=== PATIENT | female | born 1970 | race Caucasian/White ===

== ENCOUNTER 2017-05-01 13:28 | Emergency (ER) | payer OTHER ==
[~2017-05-01] VITALS: Ht 160 cm; Wt 84.4 kg
[~2017-05-01 13:28] MED LIST: AMOX500C3 PO; IBUP-103 PO; LORA-741 PO
[2017-05-01 13:40] VITALS: TEMP 38.7; Ht 160 cm; Wt 84.4 kg
[2017-05-01] MEDS ORDERED: IBUPROFEN 600 MG TAB PO STA (14:14)
--- NOTE | 2017-05-01 15:02 | DIAGNOSTIC IMAGING REPORT ---
TWO VIEW CHEST CLINICAL HISTORY: Cough and fever. FINDINGS: PA and lateral chest radiographs are compared to study dated 01/06/2016 and correlated with chest CT dated 07/10/2015. The cardiomediastinal silhouette is unremarkable. There is bibasilar atelectasis. No airspace consolidation is seen typical for pneumonia and there is no pleural effusion. There is no pneumothorax. The bony thorax appears intact. IMPRESSION: Bibasilar atelectasis with no acute cardiopulmonary abnormality. Electronically signed by: Nestor Moyer M.D. 05/01/2017 3:01 PM Dictated Date/Time: 05/01/2017 3:00 PM
[2017-05-01 15:19] LABS: INFLUENZA B ANTIGEN Neg for Influ B (NEG)
[2017-05-01] MEDS ORDERED: OSEL75CA12 PO (15:23)
--- NOTE | 2017-05-01 15:24 | EMERGENCY ROOM VISIT NOTE ---
History First contact with patient: 14:04 Chief Complaint: FLU LIKE SX Stated Complaint: CHEST/COUGH/EAR, LOWER BACK, SINUS History of Present Illness The patient is a 47 year old female who presents to the Emergency Room with complaints of head congestion, cough, sore throat and ear pain which started 2 days ago. The patient also states it felt like she had a fever but she did not check her temperature. She felt chilled. The patient states that her cough is dry for a period of time then she will cough for a long time and then they will become productive. The patient also admits to body aches. The patient denies any history of asthma. The patient does admit to tobacco use. The patient did not have the influenza vaccine. The patient took DayQuil at 9 AM which has had 0.5 mg of Tylenol in it. Review of Systems 10 system review was performed and was negative unless stated otherwise history of present illness. Past Medical/Surgical History Medical Problems: (1) shortness of breath Kidney stones, hysterectomy, carpal tunnel surgery, rotator cuff surgery Social History Smoking Status: Current Every Day Smoker Alcohol Use: none Drug Use: none Marital Status: Housing Status: lives with significant other Occupation Status: employed Current/Historical Medications No Active Prescriptions or Reported Meds Physical Exam Vital Signs Date Time Temp Pulse Resp B/P (MAP) Pulse Ox O2 Delivery O2 Flow Rate FiO2 05/01/17 13:40 38.7 117 18 121/79 99 Room Air Physical Exam PHYSICAL EXAM: Vital Signs were reviewed: Temperature 38.7, blood pressure 121/ 79, pulse 117, respiratory rate 18 Reviewed Nurse's notes and agree. Oxygen saturation is 99 % on room air which is normal . GENERAL: 47-year-old female appears in no acute distress. MENTAL STATUS: Alert, oriented, coherent. EARS: Canals clear. TMs good light reflex, no erythema or fluid level noted. NOSE: Nasal mucosa with moderate erythema engorgement. MOUTH: Left lower molar with diffuse decay any portion of the tooth missing. No visible associated abscess. The patient is able to open her mouth without any difficulty. PHARYNX: Moderate erythema, left tonsil is 2+. No exudate noted. Airway is adequate. Uvula without deviation. NECK: Supple, non-tender. No lymphadenopathy noted. LUNGS: Clear to auscultation without wheezes rales or rhonchi. CARDIAC: Regular rate and rhythm without murmur. SKIN: No rashes noted. Medical Decision & Procedures ER Provider Diagnostic Interpretation: TWO VIEW CHEST CLINICAL HISTORY: Cough and fever. FINDINGS: PA and lateral chest radiographs are compared to study dated 01/06/2016 and correlated with chest CT dated 07/10/2015. The cardiomediastinal silhouette is unremarkable. There is bibasilar atelectasis. No airspace consolidation is seen typical for pneumonia and there is no pleural effusion. There is no pneumothorax. The bony thorax appears intact. IMPRESSION: Bibasilar atelectasis with no acute cardiopulmonary abnormality. Electronically signed by: Nestor Moyer M.D. 05/01/2017 3:01 PM Laboratory Results Test 05/01/17 14:24 Medications Administered Medications (Trade) Dose Ordered Sig/Tony Route Start Time Stop Time Status Last Admin Dose Admin Ibuprofen (Motrin Tab) 600 mg NOW STAT PO 05/01/17 14:14 05/01/17 14:16 DC 05/01/17 14:24 600 MG ED Course The patient was evaluated. Chest x-ray was ordered and interpreted by the radiologist and myself as above without any evidence of pneumonia.. Rapid strep was negative. Culture is pending. Rapid influenza was positive for influenza A but negative for influenza B. The patient was informed of the findings. The patient was discharged home in stable condition. Medical Decision Differential diagnosis include bronchitis, pneumonia, influenza [place] Drug Monitoring Program Search Results: patient reviewed within database Medication Reconcilliation Current Medication List: was personally reviewed by pr Blood Pressure Screening Patient's blood pressure: Normal blood pressure Impression Primary Impression: Influenza A Departure Information Dispostion Home / Self-Care Condition GOOD Prescriptions Oseltamivir (Tamiflu) 75 Mg Cap 75 MG PO BID for 5 Days, #10 CAP Prov: Landy Andrea PA-C 05/01/17 Referrals Skip Mcknight (PCP) Forms HOME CARE DOCUMENTATION FORM, IMPORTANT VISIT INFORMATION Patient Instructions My [facility] [employer] Additional Instructions Tylenol and/or ibuprofen as needed for fever and body aches. Push fluids. Continue [id number] symptomatic treatment. Take Tamiflu as prescribed for 5 days. If symptoms persist or worsen, follow with your family doctor or return to ER.
[2017-05-01 15:42] VITALS: BP 118/88; PULSE 110; O2SAT 99
== END 2017-05-01 15:43 | disposition home or self-care (01) ==
LOC: C.EDB 13:29 → C.EDC 15:43
DX: J10.1 Influenza due to other identified influenza virus with other respiratory manifestations (principal); Z87.442 Personal history of urinary calculi; F17.210 Nicotine dependence, cigarettes, uncomplicated

== ENCOUNTER 2018-07-05 05:38 | Observation (INO) ==
--- NOTE | 2018-06-11 14:49 | PAT Medication Instructions ---
Medication Instructions Date of Service June 11, 2018 Home Medications lorazepam 0.5 mg PO BID PRN Take morning of surgery With a small sip of water, OTHERWISE NOTHING TO EAT OR DRINK AFTER MIDNIGHT: lorazepam 0.5 mg PO BID PRN (if needed) Other Notes If you have any questions please call us at [phone] or [phone] or [phone] or [phone]
--- NOTE | 2018-06-12 10:25 | Anesthesiology Consultation ---
Date of Service June 12, 2018 Assessment & Plan (1) Encounter for pre-operative examination: Chart Review Chart Review: Acceptable Risk for Surgery and Patient NOT seen in Pre Admission Testing History Surgery Operation Date: 07/05/18 12:05 Proposed Procedures p C6-C7 Anterior Cervical Discectomy and Fusion - Taiwo Stewart DO Height/Weight Height: 5 ft 2.5 in Weight: 85 kg Allergies Allergy/AdvReac Type Severity Reaction Status Date / Time oxycodone AdvReac Severe SHORTNESS Verified 06/07/18 11:21 OF BREATH Medications Home Medications Medication Instructions Recorded Confirmed Last Taken lorazepam 0.5 mg PO BID PRN 02/13/18 06/07/18 Unknown Past Medical History Medical History Anxiety Atypical chest pain 05/2018 S/P UNREMARKABLE EKG/NEGATIVE TROPONINS- MUSCULAR ETIOLOGY SUSPECTED; NO FURTHER EPISODES SINCE LIDOCAINE PATCH X 1 Degenerative disc disease History of ovarian cyst Obesity Osteoarthritis Past Surgical History Surgical History History of bunionectomy LT History of carpal tunnel release RT History of elbow surgery RT History of mandibular surgery R/T INJURY AT AGE 20 - NO ROM ISSUES History of oophorectomy, unilateral History of partial hysterectomy History of repair of rotator cuff RT X 2 Past Anesthesia History No Hx of Anesthesia Complications and No Family Hx of Anesthesia Complications History of PONV No Motion Sickness Screening History of Motion Sickness: No STOP BANG Total 1 Social History Smoking Status: Current every day smoker tobacco type: cigarettes Smoking cigarettes per day: 1/2 PPD X 25 YEARS Do You Dip or Chew Tobacco: No Hx Alcohol Use: Yes Alcohol type: beer Alcohol Intake Frequency Comment: ONCE PER MONTH Hx Substance Use: No substance use type: does not use Exercise / Class Metabolic Activity II 4-5 Yardwork/Stairs/Walk up hill Review of Systems Patient denies chest pain, shortness of breath, dyspnea on exertion, cough, wheezing, palpitations. Physical Exam Vital Signs VITALS BP P TEMP 98.4 SP02 RESP 18 PHYSICAL Full neck and c-spine range of motion. Full TMJ range of motion. TMD 3 finger breaths Mallampati Score 2 Dentition: upper front right 3rd/4th teeth missing, bottom front caps Lungs: clear throughout to auscultation Cardiac: regular rate and rhythm Spine: normal Carotid arteries: negative bruit Extremities: no edema Testing Electrocardiogram Date: 06/06/18 Findings: + NSR @ (95) Chest X-Ray Date: 06/06/18 Findings: + NAD Laboratory Results 06/12/18 10:33 Blood Type O Positive 06/12/18 10:33 Antibody Screen NEGATIVE 06/12/18 10:33 Urine Color Yellow 06/12/18 Unknown Urine Appearance Clear (Clear) 06/12/18 Unknown Urine pH 7.0 (4.5-7.5) 06/12/18 Unknown Ur Specific [place] 1.010 (1.000-1.030) 06/12/18 Unknown Urine Protein Negative (Negative) 06/12/18 Unknown Urine Glucose (UA) Negative (Negative) 06/12/18 Unknown Urine Ketones Negative (Negative) 06/12/18 Unknown Urine Nitrite Negative (Negative) 06/12/18 Unknown Ur Leukocyte Esterase Negative (Negative) 06/12/18 Unknown Urine WBC (Auto) 0 /hpf (0-5) 06/12/18 Unknown Urine RBC (Auto) 5-10 /hpf (0-4) H 06/12/18 Unknown U Hyaline Cast (Auto) 0 /lpf (0-5) 06/12/18 Unknown U Epithel Cells (Auto) 20-30 /lpf (0-5) H 06/12/18 Unknown Urine Bacteria (Auto) Negative (Negative) 06/12/18 Unknown Surgeon made aware of elevated WBC. 06/06/18 SODIUM 139 POTASSIUM 3.6 CHLORIDE 107 CO2 25 BUN 18 CREATININE 0.81 GLUCOSE 81 PT 10.3 PTT 24.9 INR 1.0
[2018-06-12 11:20] LABS: Basophils # (auto) 0.05 K/uL (0-0.2); Basophils % (auto) 0.4 %; Eosinophils # (auto) 0.07 K/uL (0-0.5); Eosinophils % (auto) 0.6 %; Hematocrit (blood only) 44.3 % (37-47); Hemoglobin 14.7 g/dL (12.0-16.0); Immature Granulocytes # (auto) 0.04 K/uL (0.00-0.02); Immature Granulocytes % (auto) 0.3 %; Lymphocytes # (auto) 3.33 K/uL (1.2-3.4); Lymphocytes % (auto) 27.3 %; Mean Corpuscular Hgb Conc 33.2 g/dL (32-36); Mean Corpuscular Volume 96.7 fL (80-100); Mean Platelet Volume 9.6 fL (7.4-10.4); Monocytes # (auto) 0.85 K/uL (0.11-0.59); Neutrophils # (auto) 7.88 K/uL (1.4-6.5); Neutrophils % (auto) 64.4 %; Platelet Count 347 K/uL (130-400); RDW Coefficient of Variation 13.2 % (11.5-14.5); RDW Standard Deviation 46.3 fL (36.4-46.3); Red Blood Count 4.58 M/uL (4.2-5.4); White Blood Count 12.22 K/uL (4.8-10.8)
[2018-06-12 11:28] LABS: Appearance Urine Clear (Clear); Bacteria Urine Automated Negative (Negative); Bilirubin Urine Negative (Negative); Blood Urine 1+ (Negative); Cast Urine Automated 0 /lpf (0-5); Color Urine Yellow; Epithelial Cell Urine Auto 20-30 /lpf (0-5); Glucose Urine UA Negative (Negative); Ketones Urine Negative (Negative); Leukocyte Esterase Urine Negative (Negative); Nitrite Urine Negative (Negative); Protein Urine Negative (Negative); Urobilinogen Urine Negative (Negative); WBC Urine Automated 0 /hpf (0-5)
[2018-07-05] MEDS ORDERED: LR 15ML/HR IV SCH ×2 (06:00)
[2018-07-05] MEDS ORDERED: CeleBREX 200 MG CAP PO SCH (06:00)
[2018-07-05] MEDS ORDERED: ACETAMINOPHEN 500 MG TAB PO SCH (06:00)
[2018-07-05] MEDS ORDERED: CEFAZOLIN 2000MG 2,000 MG/15 ML SYR IV SCH (06:00)
[2018-07-05] MEDS ORDERED: GABAPENTIN 300 MG x 3 PO SCH (06:00)
[2018-07-05] MEDS ORDERED: HYDROmorphone INJ 2 MG/ML SYR/VIAL ONE ×2 (06:35)
[2018-07-05] MEDS ORDERED: fentaNYL citrate 100 MCG/2 ML VIAL ONE ×4 (06:35→08:56)
[2018-07-05] MEDS ORDERED: MIDAZOLAM HCL 1 MG/ML 2ML VIAL ONE (06:35)
[2018-07-05] MEDS ORDERED: ROCURONIUM BROMIDE 10 MG/ML 5 ML VIAL ONE (06:36)
[2018-07-05] MEDS ORDERED: GLYCOPYRROLATE 0.2 MG/ML VIAL ONE (06:36)
[2018-07-05] MEDS ORDERED: NEOSTIGMINE METHYLSULFATE 1 MG/ML 10ML VIAL ONE (06:36)
[2018-07-05] MEDS ORDERED: LIDOCAINE HCL 2% 2 ML VIAL/AMP(20MG/ML) INFIL ONE (06:36)
[2018-07-05] MEDS ORDERED: PROPOFOL IV EMULSION 10 MG/ML 20 ML VIAL IV ONE (06:36)
[2018-07-05] MEDS ORDERED: ONDANSETRON INJ 2 MG/ML 2 ML VIAL ONE ×2 (06:36→08:51)
[2018-07-05] MEDS ORDERED: DEXAMETHASONE SOD INJ 4 MG/ML VIAL ONE (06:36)
[2018-07-05] MEDS ORDERED: ATROPINE SULFATE 0.1 MG/ML 10ML SYR IV PRN (06:58)
[2018-07-05] MEDS ORDERED: ePHEDrine sulfate 50 MG/ML AMP IV PRN (06:58)
[2018-07-05] MEDS ORDERED: HYDROmorphone INJ 2 MG/ML SYR/VIAL IV PRN (06:58)
[2018-07-05] MEDS ORDERED: ONDANSETRON INJ 2 MG/ML 2 ML VIAL IV PRN ×2 (06:58→11:00)
[2018-07-05] MEDS ORDERED: BACITRACIN INJ 50,000 UNIT VIAL ONE (07:07)
--- NOTE | 2018-07-05 07:48 | History & Physical Bridge Note ---
Date of Service July 05, 2018 History & Physical Bridge Note I have examined the patient, reviewed the History & Physical and in the interval since the performance of the History & Physical I have noted the following changes of clinical significance: no changes noted
--- NOTE | 2018-07-05 07:49 | History & Physical Report ---
Date of Service July 05, 2018 Assessment & Plan (1) Cervical stenosis of spinal canal: Anterior cervical discectomy and fusion C6-7 Present on Admission?: Yes History of Present Illness Chief Complaint: Neck and arm pain Primary Care Provider: Skip Juan Luis This is a 48-year-old female with significant neck and arm pain. After failing extensive course of nonoperative care she is here for surgical intervention. Allergies Allergy/AdvReac Type Severity Reaction Status Date / Time oxycodone AdvReac Severe SHORTNESS Verified 07/05/18 06:30 OF BREATH Home Medications Home Medications Medication Instructions Recorded Confirmed Type lorazepam 0.5 mg PO BID PRN 02/13/18 07/05/18 History Past Med/Surg History Social History Preferred Language: Bangladeshi Communication Ability: Effective Outside Installer Apprentice Required: No Beliefs That Will Affect Care: None Current Living Situation: Spouse Other Information That Helps Us Care for You: No Feels Safe at Home: Yes Safety Concerns: Feels Safe At This Time Smoking Status: Current every day smoker Hx Alcohol Use: Yes Hx Substance Use: No Physical Exam Vital Signs (Past 24 Hours): Last Vital Signs Temp 36.9 C 07/05/18 06:31 Pulse 84 07/05/18 06:31 Resp 16 07/05/18 06:31 BP 121/82 07/05/18 06:31 Pulse Ox 95 07/05/18 06:31 Results & Data Medications Administered Acetaminophen (Tylenol) 1,000 mg PO PREOP ITZEL Stop: 07/05/18 18:00 Last Admin: 07/05/18 06:56 Dose: 1,000 mg Documented by: [id number] Celecoxib (Celebrex) 200 mg PO PREOP ITZEL Stop: 07/05/18 18:00 Last Admin: 07/05/18 06:56 Dose: 200 mg Documented by: [id number] Gabapentin (Neurontin) 900 mg PO PREOP ITZEL Stop: 07/05/18 18:00 Last Admin: 07/05/18 06:56 Dose: 900 mg Documented by: [id number] Lactated Ringer's (Lr) 1,000 mls @ 15 mls/hr IV .Q24H ITZEL Stop: 07/06/18 05:59 Last Admin: 07/05/18 06:49 Dose: 15 mls/hr Documented by: [id number]
[2018-07-05] MEDS ORDERED: FLOSEAL HEMOSTATIC MATRIX 10ML TOP ONE (08:34)
[2018-07-05] MEDS ORDERED: raNITIdine HCl 25 MG/ML VIAL ONE (08:51)
[2018-07-05] MEDS ORDERED: METOCLOPRAMIDE HCL INJ 5 MG/ML 2 ML VIAL ONE (08:51)
[2018-07-05] MEDS ORDERED: PHENYLEPHRINE 100MCG/ML 5ML SYR ONE (08:51)
[2018-07-05] MEDS ORDERED: ESMOLOL HCL INJ 10 MG/ML 10ML VIAL IV ONE (08:57)
--- NOTE | 2018-07-05 09:06 | Operative Report ---
Post Operative Report Pre & Post Diagnosis Operation Date: 07/05/18 07:45 Pre-Op Diagnosis: Spinal Stenosis, Cervical Region Post-Op Diagnosis: Spinal Stenosis, Cervical Region Procedure Operation Date: 07/05/18 07:45 Actual Procedures #1 anterior cervical discectomy bilateral foraminotomies C6-7. #2 anterior cervical arthrodesis C6-7. #3 placement of cortical allograft filled with DBM 9 mm in height C6-7. #4 application cedeno plate and screws across C6-7. Surgeon Taiwo Stewart, Attendance Clerk Halie Morin Estimated Blood Loss 10 Findings Consistent with Post-Op Diagnosis Specimens None Description of Procedure Still questions addressed. After informed consent obtained patient was taken to the operative suite underwent intubation and placed in the supine position on the Lalito table with the head Foley head start assistant teacher. All bony prominences well-padded eyes inspected to ensure no external pressure placed upon but this point the anterior cervical spine was prepped and draped in normal sterile fashion. The assistance of fluoroscopy identified the C6-7 disc space and a transverse incision was placed on the right anterior aspect of the cervical spine overlying this region. Sharp dissection with the assistance of bipolar elective cautery was performed down to and exposing the anterior cervical spine at C6-7. Self-retaining retractors placed. Then performed a complete discectomy of C6-7 out to the uncovertebral joints bilaterally. [place] distracting pins were utilized to assist in visualization. Removed all posterior annular fibers longitudinal ligament and bilateral foraminotomies performed. Endplates were then burred to subcortical bleeding bone and a 9 mm cortical allograft filled with DBM tamped in position. Distraction apparatus was removed and a cedeno plate and screws applied with the assistance of fluoroscopy. Incision was then copiously irrigated explored to ensure no damage to surrounding structures remaining bleeding. 10 round ROSALBA drain inserted. Incision was then closed with 2 Vicryl in a fashion of 4-0 Monocryl for final skin closure. Steri-Strips sterile dressing placed patient will continue to PACU stable condition. Please note Halie Morin present throughout the entire procedure involved in patient positioning complex portions of the surgery and final skin closure. I attest to the content of the Intraoperative Record and any orders documented therein. Any exceptions are noted below.
--- NOTE | 2018-07-05 09:28 | Fluoroscopy Report ---
FL cervical 2-3V CLINICAL HISTORY: C6-C7 ACDF COMPARISON STUDY: None FLUOROSCOPY TIME: 10 seconds NUMBER OF FLUOROSCOPIC IMAGES: FINDINGS: Findings consistent with an anterior fusion and spacer placement at C6-C7. Alignment is cande tomic. IMPRESSION: C6-C7 anterior fusion and disc spacer placement. Alignment is anatomic. The above report was generated using voice recognition software. It may contain grammatical, syntax or spelling errors. Electronically signed by: Zain Andrea M.D. 07/05/2018 9:27 AM
[2018-07-05] MEDS: fentaNYL citrate 100 MCG/2 ML VIAL IV PRN ×2 (09:50→09:55)
--- NOTE | 2018-07-05 10:43 | Anesthesiology Progress Note ---
Date of Service July 05, 2018 Anesthesia Post Procedure Vital Signs Vital Signs: Temp Pulse Pulse Resp BP BP Pulse Ox 07/05/18 10:25 36.3 C L 72 17 120/77 97 07/05/18 10:15 36.3 C L 83 21 106/79 98 07/05/18 10:05 79 19 116/70 98 07/05/18 09:55 69 18 141/82 H 92 07/05/18 09:45 76 18 124/89 92 07/05/18 09:35 80 14 132/93 99 07/05/18 09:25 80 15 133/94 98 07/05/18 09:15 36.8 C 87 14 133/68 97 07/05/18 06:31 36.9 C 84 16 121/82 95 Pain Intensity Anterior Neck: Pain Intensity: 3 Notes Mental Status: alert / awake / arousable and participated in evaluation Patient Amnestic to Procedure: Yes Nausea / Vomiting: adequately controlled Pain: adequately controlled Airway Patency, RR, SpO2: stable & adequate BP & HR: stable & adequate Hydration State: stable & adequate Anesthetic Complications: no major complications apparent and Pt Satisfied with anesthetic care
[2018-07-05] MEDS ORDERED: LACTATED RINGER'S 1,000 ML IV SCH (11:00)
[2018-07-05] MEDS ORDERED: SCOPOLAMINE 1.5 MG TDSY TD SCH (11:00)
[2018-07-05] MEDS ORDERED: RACEPINEPHRINE 2.25% NEBU SOLN 0.5 ML VIAL INH PRN (11:00)
[2018-07-05] MEDS ORDERED: LORazepam 0.5 MG TAB PO PRN ×2 (11:00)
[2018-07-05] MEDS ORDERED: DEXAMETHASONE SOD PHOSPHATE 8 MG in SYRINGE 0 ML IV PRN (11:00)
[2018-07-05] MEDS ORDERED: HYDROmorphone INJ 0.5 MG/0.5 ML SYR IV PRN (11:00)
[2018-07-05] MEDS ORDERED: DO NOT ADMINISTER FLU VACCINE PRN (11:00)
[2018-07-05] MEDS ORDERED: NALOXONE HCL 0.4 MG/1 ML VIAL/CARP IV PRN (11:00)
[2018-07-05] MEDS ORDERED: MAGNESIUM HYDROXIDE SUSP 30 ML UDC PO PRN (11:00)
[2018-07-05] MEDS ORDERED: ACETAMINOPHEN 1,000 MG/100 ML VIAL IV PRN (11:00)
[2018-07-05] MEDS ORDERED: LORazepam 0.5 MG/1 ML VIAL IV PRN (11:00)
[2018-07-05] MEDS ORDERED: DiphenhydrAMINE HCL 50 MG/ML VIAL IV PRN (11:00)
[2018-07-05] MEDS ORDERED: DO NOT ADMINISTER PNEUMOCOCCAL VACCINE PRN (11:00)
[2018-07-05] MEDS: HYDROCODONE/ACETAMOPHEN 5/325MG TAB PO PRN ×3 (13:02→21:50)
[2018-07-05] MEDS: CEFAZOLIN 2000MG 2,000 MG/15 ML SYR IV SCH (15:54)
[2018-07-05] MEDS: CHECK SCOPOLAMINE PATCH PLACEMENT SCH (16:14)
[2018-07-05] MEDS: DOCUSATE SODIUM 100 MG CAP PO SCH (20:11)
[2018-07-06] MEDS: CHECK SCOPOLAMINE PATCH PLACEMENT SCH ×2 (00:04→08:31)
[2018-07-06] MEDS: CEFAZOLIN 2000MG 2,000 MG/15 ML SYR IV SCH ×2 (00:04→08:30)
[2018-07-06] MEDS ORDERED: COUGH DROP (SUGAR FREE) LOZ 24 LOZ/1 BOX BUCCAL PRN (00:05)
--- NOTE | 2018-07-06 08:05 | Anesthesiology Progress Note ---
Date of Service July 06, 2018 Anesthesia Post Procedure Vital Signs Vital Signs: Temp Pulse Pulse Resp BP BP Pulse Ox 07/06/18 07:23 36.8 C 68 18 114/73 95 07/06/18 05:57 36.6 C 79 18 107/71 96 07/06/18 04:00 36.6 C 74 16 107/73 95 07/06/18 03:26 79 18 94 07/06/18 02:04 36.6 C 70 18 97/63 L 94 07/06/18 00:00 36.2 C L 80 16 109/71 95 07/05/18 22:58 83 14 97 07/05/18 22:14 36.8 C 82 16 120/73 96 07/05/18 21:23 36.9 C 88 20 109/73 96 07/05/18 20:12 36.9 C 82 16 114/75 95 07/05/18 19:30 36.6 C 84 16 114/78 98 07/05/18 17:25 36.6 C 84 20 118/80 97 07/05/18 15:44 32 H 96 07/05/18 15:24 36.7 C 100 H 22 110/75 97 07/05/18 14:12 36.5 C 80 16 109/73 97 07/05/18 12:48 36.6 C 90 18 131/85 98 07/05/18 11:50 36.3 C L 74 18 127/83 99 07/05/18 11:39 72 12 99 07/05/18 11:25 36.7 C 71 18 124/82 98 07/05/18 10:50 36.4 C L 67 18 126/82 99 07/05/18 10:25 36.3 C L 72 17 120/77 97 07/05/18 10:15 36.3 C L 83 21 106/79 98 07/05/18 10:05 79 19 116/70 98 07/05/18 09:55 69 18 141/82 H 92 07/05/18 09:45 76 18 124/89 92 07/05/18 09:35 80 14 132/93 99 07/05/18 09:25 80 15 133/94 98 07/05/18 09:15 36.8 C 87 14 133/68 97 Pain Intensity Anterior Neck: Pain Intensity: 2 Head: Pain Intensity: 3 Notes Mental Status: alert / awake / arousable and participated in evaluation Patient Amnestic to Procedure: Yes Nausea / Vomiting: adequately controlled Pain: adequately controlled Airway Patency, RR, SpO2: stable & adequate BP & HR: stable & adequate Hydration State: stable & adequate Anesthetic Complications: no major complications apparent and Pt Satisfied with anesthetic care
[2018-07-06] MEDS: DOCUSATE SODIUM 100 MG CAP PO SCH (08:31)
--- NOTE | 2018-07-06 19:08 | Discharge Summary ---
Date of Service July 06, 2018 Admission HPI Per Admitting Provider This is a 48-year-old female with significant neck and arm pain. After failing extensive course of nonoperative care she is here for surgical intervention. Principal Diagnosis Cervical spinal stenosis Discharge Data Allergies Allergy/AdvReac Type Severity Reaction Status Date / Time oxycodone AdvReac Severe SHORTNESS Verified 07/05/18 06:30 OF BREATH Procedures Performed Operation Date: 07/05/18 07:45 Actual Procedures p C6-C7 Anterior Cervical Discectomy and Fusion(Not Applicable) - Taiwo Stewart DO Ordered Studies 07/05/18 07:45 FL cervical 2-3V Routine FL fluoroscopy <1hr Routine Hospital Course (1) Cervical stenosis of spinal canal: Patient underwent anterior cervical discectomy and fusion tolerated this well was taken to orthopedic floor postoperative. Postop day and when she is up and ambulate nicely swallowing well no hoarseness arm symptoms markedly improved subsequent to discharge home. Discharge orders and instructions from the chart for further review. Total Time Total Time Spent Total Time Spent (In Minutes): Not applicable Discharge Plan Discharge Items Patient Disposition: Home - Self-Care Reason For Visit: Spinal Stenosis, Cervical Region Discharge Diagnosis: Cervical spinal stenosis with radiculopathy Discharge Goals: Decrease discomfort Activity: Per 'Additional Instructions' section Non-emergency contact: Primary Care Provider Call non-emergency contact if: you have any medication questions Follow-up/Referrals: Skip Mcknight [Primary Care Provider] - Diet: Regular Addtl Provider Instructions: ACTIVITY RECOMMENDATIONS: SELF CARE INSTRUCTIONS AFTER CERVICAL FUSIONS 1. No smoking. Smoking drastically decreases the chance of a solid fusion. 2. No bending, lifting more than 5 pounds, or twisting (roll like a log when turning in bed). 3. You may shower 3 days after surgery. Thoroughly dry wound. Do not soak in the tub. 4. Cervical collar: Must be worn at all times including sleeping. You may remove the brace only to bath, eat and if you are sitting in a recliner. 5. Please walk as much as you can for exercise. Gradually increase the distance that you walk as your endurance increases. SPECIAL CARE INSTRUCTIONS: VERY IMPORTANT TO READ AND REVIEW A. Do not take any anti-inflammatory medications (i.e. Indocin, Advil, Aspirin, Naprosyn, Aleve, Motrin, etc.) as these may inhibit the chance of a solid fusion. Tylenol is okay to take. B. Your surgical incision has been closed with a cosmetic suture under the skin that will dissolve in about 6 weeks. In 14 days, you can use a pair of clean scissors and cut the suture that is left outside of the skin at the ends of your incision. C. Complications are uncommon, but please contact us if you have any signs or symptoms of: 1. wound infection (fever higher than 102.5 degrees F, redness, separation of wound, drainage, or increasing pain from the incision) 2. blood clots in legs (pain, swelling, redness and warmth in legs) 3. urinary tract infection (fever higher than 102.5 degrees, burning upon urination or increased frequency of urination) 4. nerve problems (inability to walk on your toes or heels, numbness, loss of bowel or bladder control) 5. any other symptoms that concern you. D. Please call the office at if you have any concerns or questions about your operation or recovery. MANAGING PAIN AFTER SPINAL SURGERY 1. Narcotic medication is intended for short-term use and will be provided for surgical pain. Surgical pain usually lasts for a period of 4-6 weeks. Narcotic medication includes Percocet, Vicodin, Darvocet, Tylenol #3 or Lortab. 2. Longer-term pain is more appropriately treated with non-narcotic medication such as Tylenol ES. 3. Muscle spasm is not appropriately treated with narcotics. Muscle relaxers such as Soma, Flexeril or Skelaxin can be used along with Tylenol ES. 4. Remember that we all live with some "aches and pains". This is not unusual or uncommon after an injury or as we get older. 5. We will provide appropriate medication within the normal guidelines of their prescribed use. We will also be very cautious and aware of potential abuse and extended duration of patients' medication needs. 6. Please allow 2-3 days to process refills. Prescriptions will not be mailed but must be picked up at the office. FOLLOW UP VISIT: Keep your scheduled follow-up appointment. Any questions, please call the office at . Prescriptions: New hydrocodone-acetaminophen [[place]] 5-325 mg Tablet 1 tab PO Q4H PRN (Reason: Pain) Qty: 30 RF: 0 Continued lorazepam 0.5 mg tablet 0.5 mg PO BID PRN (Reason: Anxiety) RF: 0 Stand-Alone Forms: [employer], [facility] [employer]/Other Patient Handouts: ED Smoking Cessation Discharge Orders: Discharge Order (Routine); Ordered 07/06/18 Ordered By: Taiwo Stewart Admission Data Admit Date/Time: 07/05/18 09:09 Attending Provider: Taiwo Stewart Admit Provider: Taiwo Stewart Primary Care Provider: Skip Mcknight Service: Surgical Services Other Interventions: Discharge Summary Assessment (RN) Last Done: 07/06/18 10:43 DC Date/Time DO NOT enter until pt leaves facility: 07/06/18 12:15
== END 2018-07-06 12:15 | disposition home or self-care (01) ==
LOC: ASU 05:38 → 3E 05:38

== ENCOUNTER 2019-01-04 18:22 | Observation (INO) ==
[2019-01-04 20:19] LABS: Basophils # (auto) 0.04 K/uL (0-0.2); Basophils % (auto) 0.2 %; Eosinophils % (auto) 0.5 %; Hematocrit (blood only) 44.7 % (37-47); Hemoglobin 15.3 g/dL (12.0-16.0); Immature Granulocytes # (auto) 0.04 K/uL (0.00-0.02); Immature Granulocytes % (auto) 0.2 %; Lymphocytes # (auto) 4.35 K/uL (1.2-3.4); Lymphocytes % (auto) 23.7 %; Mean Corpuscular Hemoglobin 32.3 pg (25-34); Mean Corpuscular Hgb Conc 34.2 g/dL (32-36); Mean Corpuscular Volume 94.3 fL (80-100); Mean Platelet Volume 9.7 fL (7.4-10.4); Monocytes # (auto) 1.39 K/uL (0.11-0.59); Monocytes % (auto) 7.6 %; Neutrophils # (auto) 12.43 K/uL (1.4-6.5); Neutrophils % (auto) 67.8 %; Platelet Count 294 K/uL (130-400); RDW Coefficient of Variation 12.5 % (11.5-14.5); Red Blood Count 4.74 M/uL (4.2-5.4); White Blood Count 18.35 K/uL (4.8-10.8)
[2019-01-04 20:20] LABS: Appearance Urine Cloudy (Clear); Bacteria Urine Automated Negative (Negative); Bilirubin Urine Negative (Negative); Blood Urine 1+ (Negative); Color Urine Yellow; Epithelial Cell Urine Auto >30 /lpf (0-5); Glucose Urine UA Negative (Negative); Ketones Urine Negative (Negative); Leukocyte Esterase Urine Negative (Negative); Nitrite Urine Negative (Negative); Protein Urine Negative (Negative); Specific Gravity Urine 1.016 (1.000-1.030); Urobilinogen Urine Negative (Negative); pH Urine 8.5 (4.5-7.5)
[2019-01-04] MEDS ORDERED: ONDANSETRON INJ 2 MG/ML 2 ML VIAL IV STA (20:32)
[2019-01-04 20:35] LABS: Albumin Level 4.3 gm/dl (3.4-5.0); BUN Creatinine Ratio 14.5 (10-20); Calcium 9.8 mg/dl (8.5-10.1); Creatinine Clr Calc Pharmacy 79.7 ml/min; Est GFR (African American) 88.3; Est GFR (Non-African American) 76.1; Potassium 3.6 mmol/L (3.5-5.1)
[2019-01-04 20:38] LABS: Albumin Globulin Ratio 1.2 (0.9-2); Bilirubin,Total 0.4 mg/dl (0.2-1); Globulin 3.7 gm/dl (2.5-4.0)
[2019-01-04] MEDS: HYDROmorphone INJ 0.5 MG/0.5 ML SYR IV PRN ×3 (20:38→22:13)
[2019-01-04] MEDS ORDERED: IOVERSOL 100ml IV PRN (20:55)
--- NOTE | 2019-01-04 21:08 | CT Scan Report ---
CT SCAN OF THE ABDOMEN AND PELVIS WITH IV CONTRAST CLINICAL HISTORY: Right lower quadrant abdominal pain. Leukocytosis. COMPARISON STUDY: Abdominal CT dated 08/23/2013. TECHNIQUE: Following the IV administration of 70 cc of Optiray 320, CT scan of the abdomen and pelvi s is performed from the lung bases to the proximal femora. Images are reviewed in the axial, sagittal , and coronal planes. IV contrast was administered without complication. A dose lowering technique wa s utilized adhering to the principles of ALARA. CT DOSE: 676.14 mGy.cm FINDINGS: Lung bases: The heart is normal in size and without pericardial effusion. The lung bases are clear. Liver: The contrast-enhanced liver is normal in size, contour, and attenuation. There is no intrahepa tic biliary ductal dilatation. The hepatic veins and portal veins are patent. Gallbladder: Unremarkable. Spleen: Normal in size and attenuation. Pancreas: Unremarkable. Adrenal glands: Unremarkable. Kidneys: The contrast enhanced kidneys are normal in size and without hydronephrosis. The kidneys enh ance symmetrically. Abdominal vasculature: The abdominal aorta is normal in course and caliber noting mild atheroscleroti c calcification. Bowel: The small bowel and colon are normal in course and caliber. The appendix is retrocecal in loc ation. The appendix is distended and fluid-filled, measuring up to 9 mm in diameter as seen on image #[id number]. The appendiceal wall appears hyperemic and there is periappendiceal inflammation. The appearanc e is consistent with acute appendicitis. There is no evidence of abscess. Peritoneum: There is no intraperitoneal free air or abdominal ascites. There is a small fat-containin g umbilical hernia. Lymphadenopathy: None. Pelvic viscera: The bladder is normal as visualized. The uterus is surgically absent. No adnexal lesi on is seen. Skeletal structures: No lytic or blastic lesions are seen. IMPRESSION: Findings are consistent with acute appendicitis. There is no evidence of abscess or perfo ration. Electronically signed by: Nestor Moyer M.D. 01/04/2019 9:05 PM
[2019-01-04] MEDS ORDERED: cefOXitin 2,000 MG/60 ML BAG IV STA (21:33)
[2019-01-04] MEDS ORDERED: BUPIVACAINE 0.5 % 5 MG/1 ML MPF 30ML VIAL ONE (21:57)
[2019-01-04] MEDS ORDERED: ONDANSETRON INJ 2 MG/ML 2 ML VIAL IV PRN (22:05)
[2019-01-04] MEDS ORDERED: ATROPINE SULFATE 0.1 MG/ML 10ML SYR IV PRN (22:05)
[2019-01-04] MEDS ORDERED: ePHEDrine sulfate 50 MG/ML AMP IV PRN (22:05)
[2019-01-04] MEDS ORDERED: MEPERIDINE HCL 25 MG/ML CARP IV PRN (22:05)
[2019-01-04] MEDS ORDERED: LABETALOL HCL IV 5 MG/ML 20ML IV PRN (22:05)
[2019-01-04] MEDS ORDERED: PHENYLEPHRINE 100MCG/ML 5ML SYR IV PRN (22:05)
[2019-01-04] MEDS ORDERED: fentaNYL citrate 100 MCG/2 ML VIAL IV PRN (22:05)
--- NOTE | 2019-01-04 22:12 | Anesthesiology Consultation ---
Date of Service January 04, 2019 Assessment & Plan (1) Encounter for pre-operative examination: Chart Review Chart Review: Acceptable Risk for Surgery and Patient NOT seen in Pre Admission Testing Consults Requested none History Surgery Operation Date: 01/04/19 22:30 Proposed Procedures p Laparoscopic Appendectomy - Chip Bautista DO, REAGAN Height/Weight Height: 5 ft 2.5 in Weight: 86.5 kg Allergies Allergy/AdvReac Type Severity Reaction Status Date / Time oxycodone AdvReac Severe SHORTNESS Verified 01/04/19 21:33 OF BREATH Medications Home Medications Medication Instructions Recorded Confirmed Last Taken lorazepam 0.5 mg PO BID PRN 02/13/18 01/04/19 07/05/18 05:30 ibuprofen [Advil] 600 mg PO BID PRN 01/04/19 01/04/19 01/03/19 22:00 Active Medications Generic Name Dose Route Start Last Admin Trade Name Freq PRN Reason Stop Dose Admin Hydromorphone HCl 0.5 mg 01/04/19 20:32 01/04/19 21:20 Dilaudid IV 01/18/19 20:31 0.5 mg Q15M PRN Administration Pain Ioversol 70 ml 01/04/19 20:55 01/04/19 20:55 Optiray 320 100ml IV 01/08/19 20:54 70 ml ONCE PRN Administration Interaction Checking NPO Date Last Intake of Fluids: 01/04/19 Time Last Intake of Fluids: 12:00 Date Last Intake of Solids: 01/04/19 Time Last Intake of Solids: 12:00 Past Medical History Medical History History of ovarian cyst (Resolved) Osteoarthritis (Chronic) Degenerative disc disease (Chronic) Obesity (Chronic) Atypical chest pain (Resolved) 05/2018 S/P UNREMARKABLE EKG/NEGATIVE TROPONINS- MUSCULAR ETIOLOGY SUSPECTED; NO FURTHER EPISODES SINCE LIDOCAINE PATCH X 1 Anxiety (Chronic) Past Surgical History Surgical History History of oophorectomy, unilateral (Resolved) History of partial hysterectomy (Resolved) History of elbow surgery (Resolved) RT History of repair of rotator cuff (Resolved) RT X 2 History of carpal tunnel release (Resolved) RT History of bunionectomy (Resolved) LT History of cervical spinal arthrodesis (Resolved) History of neck surgery History of mandibular surgery (Resolved) R/T INJURY AT AGE 20 - NO ROM ISSUES Social History Smoking Status: Current every day smoker tobacco type: cigarettes Smoking cigarettes per day: 1/2 PPD X 25 YEARS Hx Alcohol Use: Yes Alcohol type: beer Hx Substance Use: No substance use type: does not use Physical Exam Vital Signs Last Vital Signs Temp 37 C 01/04/19 18:35 Pulse 94 H 01/04/19 21:22 Resp 16 01/04/19 21:22 BP 154/102 H 01/04/19 21:22 Pulse Ox 97 01/04/19 21:22 Testing Laboratory Results 01/04/19 20:08 01/04/19 20:08 Urine Color Yellow 01/04/19 20:08 Urine Appearance Cloudy (Clear) A 01/04/19 20:08 Urine pH 8.5 (4.5-7.5) H 01/04/19 20:08 Ur Specific [place] 1.016 (1.000-1.030) 01/04/19 20:08 Urine Protein Negative (Negative) 01/04/19 20:08 Urine Glucose (UA) Negative (Negative) 01/04/19 20:08 Urine Ketones Negative (Negative) 01/04/19 20:08 Urine Nitrite Negative (Negative) 01/04/19 20:08 Ur Leukocyte Esterase Negative (Negative) 01/04/19 20:08 Urine WBC (Auto) 1-5 /hpf (0-5) 01/04/19 20:08 Urine RBC (Auto) 5-10 /hpf (0-4) H 01/04/19 20:08 U Hyaline Cast (Auto) 1-5 /lpf (0-5) 01/04/19 20:08 U Epithel Cells (Auto) >30 /lpf (0-5) H 01/04/19 20:08 Urine Bacteria (Auto) Negative (Negative) 01/04/19 20:08 01/04/19 20:14 POC Ur Test NEG Electrocardiogram Date: 06/06/18 Findings: + NSR @ (95) Chest X-Ray Date: 06/06/18 Findings: + NAD
[2019-01-04] MEDS ORDERED: fentaNYL citrate 100 MCG/2 ML VIAL ONE ×2 (22:22→23:26)
[2019-01-04] MEDS ORDERED: MIDAZOLAM HCL 1 MG/ML 2ML VIAL ONE (22:22)
[2019-01-04] MEDS ORDERED: PROPOFOL IV EMULSION 10 MG/ML 20 ML VIAL IV ONE (22:27)
[2019-01-04] MEDS ORDERED: LIDOCAINE HCL 2% 2 ML VIAL/AMP(20MG/ML) INFIL ONE (22:27)
[2019-01-04] MEDS ORDERED: SUCCINYLCHOLINE CHLORIDE 20 MG/ML 10 ML VIAL ONE (22:28)
[2019-01-04] MEDS ORDERED: ROCURONIUM BROMIDE 10 MG/ML 5 ML VIAL ONE (22:28)
[2019-01-04] MEDS ORDERED: DEXAMETHASONE SOD INJ 4 MG/ML VIAL ONE (22:28)
[2019-01-04] MEDS ORDERED: ONDANSETRON INJ 2 MG/ML 2 ML VIAL ONE ×2 (22:28→23:56)
[2019-01-04] MEDS ORDERED: NEOSTIGMINE METHYLSULFATE 5 MG/5 ML SYR ONE (22:30)
[2019-01-04] MEDS ORDERED: GLYCOPYRROLATE 0.2 MG/ML VIAL ONE (22:30)
--- NOTE | 2019-01-04 22:36 | History & Physical Report ---
Date of Service January 04, 2019 Assessment & Plan (1) Acute appendicitis with localized peritonitis: 48-year-old female with acute appendicitis Plan for laparoscopic appendectomy The risk the procedure were discussed to include but not limited to bleeding, infection, abscess, conversion open, normal appendix, damage to surrounding structures, need for future or more extensive surgery or procedures, and the risk of anesthesia Preop antibiotics Admit postop Diagnosis, details the procedure and recovery, and plan of care discussed the patient, all questions were answered, the patient expressed understanding agrees the plan of care as stated Present on Admission?: Yes (2) Obesity: Present on Admission?: Yes (3) Smoker: Present on Admission?: Yes History of Present Illness Primary Care Provider: Skip Mcknight 48-year-old female presented to the emergency department with abdominal pain. Pain started on Monday is an ill feeling in her stomach with pain is diffuse very umbilical pain. After eating lunch this afternoon her pain migrated to the right lower quadrant and became more severe. She also has associated nausea and vomiting. [place] chills. Positive anorexia. No prior episodes. Allergies Allergy/AdvReac Type Severity Reaction Status Date / Time oxycodone AdvReac Severe SHORTNESS Verified 01/04/19 21:33 OF BREATH Home Medications Home Medications Medication Instructions Recorded Confirmed Type lorazepam 0.5 mg PO BID PRN 02/13/18 01/04/19 History ibuprofen [Advil] 600 mg PO BID PRN 01/04/19 01/04/19 History Past Med/Surg History Medical History History of ovarian cyst (Resolved) Osteoarthritis (Chronic) Degenerative disc disease (Chronic) Obesity (Chronic) Atypical chest pain (Resolved) 05/2018 S/P UNREMARKABLE EKG/NEGATIVE TROPONINS- MUSCULAR ETIOLOGY SUSPECTED; NO FURTHER EPISODES SINCE LIDOCAINE PATCH X 1 Anxiety (Chronic) Surgical History History of oophorectomy, unilateral (Resolved) History of partial hysterectomy (Resolved) History of elbow surgery (Resolved) RT History of repair of rotator cuff (Resolved) RT X 2 History of carpal tunnel release (Resolved) RT History of bunionectomy (Resolved) LT History of cervical spinal arthrodesis (Resolved) History of neck surgery History of mandibular surgery (Resolved) R/T INJURY AT AGE 20 - NO ROM ISSUES Social History Preferred Language: Pashto Communication Ability: Effective Community Director Required: No Beliefs That Will Affect Care: None Current Living Situation: Spouse Feels Safe at Home: Yes Smoking Status: Current every day smoker Tobacco Type: cigarettes ; Cigarettes Per Day: 1/2 PPD X 25 YEARS ; Second Hand Exposure: Yes ( SMOKES) ; Hx Alcohol Use: Yes Alcohol type: beer Hx Substance Use: No Review of Systems Review of Systems: All systems reviewed & are unremarkable except as noted in HPI & below Physical Exam Constitutional: WD/WN, vitals as above Eyes: PERRL, conjunctivae normal, anicteric sclerae ENMT: external ear and nose normal, oropharynx normal Neck: trachea midline, no thyromegaly Respiratory: normal respiratory effort, lungs clear to auscultation Cardiovascular: RRR, no murmur, no edema Gastrointestinal (Abdomen): Percussion/Palpation: + abdomen tender (Tender to palpation in the right lower quadrant), + guarding and abdomen soft; abdomen not rigid and no hepatosplenomegaly Musculoskeletal: no cyanosis or clubbing, extremities motor strength 5/5 Skin: no rashes, warm and dry Neurologic: PERRL, EOMI, accommodation nl, no face palsy, no dysarthria Psychiatric: A+Ox3, euthymic affect Lymphatic: no cervical or axillary lymphadenopathy Results & Data Vital Signs (Past 12 Hours) Vital Signs Temp Pulse Pulse Resp BP BP Pulse Ox 01/04/19 22:16 93 H 16 127/85 97 01/04/19 21:22 94 H 16 154/102 H 97 01/04/19 20:22 93 H 16 122/87 98 01/04/19 20:15 100 01/04/19 18:35 37 C 97 H 18 137/80 100 Laboratory Results Laboratory Results - last 24 hr 01/04/19 01/04/19 01/04/19 20:08 20:08 20:08 WBC 18.35 H RBC 4.74 Hgb 15.3 Hct 44.7 MCV 94.3 MCH 32.3 MCHC 34.2 RDW Std Deviation 43.0 RDW Coeff of [place] 12.5 Plt Count 294 MPV 9.7 Immature Gran % (Auto) 0.2 Neut % (Auto) 67.8 Lymph % (Auto) 23.7 [place] % (Auto) 7.6 Eos % (Auto) 0.5 Baso % (Auto) 0.2 Immature Gran # (Auto) 0.04 H Neut # (Auto) 12.43 H Lymph # (Auto) 4.35 H [place]pie # (Auto) 1.39 H Eos # (Auto) 0.10 Baso # (Auto) 0.04 Sodium 139 Potassium 3.6 Chloride 106 Carbon Dioxide 24 Anion Gap 9.0 BUN 13 Creatinine 0.90 Est Cr Clr Drug Dosing 79.7 Est GFR ( Amer) 88.3 Est GFR (Non-Af Amer) 76.1 BUN/Creatinine Ratio 14.5 Glucose 93 Calcium 9.8 Total Bilirubin 0.4 AST 12 L ALT 23 Alkaline Phosphatase 93 Total Protein 8.0 Albumin 4.3 Globulin 3.7 Albumin/Globulin Ratio 1.2 Lipase 286 Urine Color Yellow Urine Appearance Cloudy A Urine pH 8.5 H Ur Specific [place] 1.016 Urine Protein Negative Urine Glucose (UA) Negative Urine Ketones Negative Urine Blood 1+ H Urine Nitrite Negative Urine Bilirubin Negative Urine Urobilinogen Negative Ur Leukocyte Esterase Negative Urine WBC (Auto) 1-5 Urine RBC (Auto) 5-10 H U Hyaline Cast (Auto) 1-5 U Epithel Cells (Auto) >30 H Urine Bacteria (Auto) Negative POC Ur Test 01/04/19 20:14 WBC RBC Hgb Hct MCV MCH MCHC RDW Std Deviation RDW Coeff of [place] Plt Count MPV Immature Gran % (Auto) Neut % (Auto) Lymph % (Auto) [place] % (Auto) Eos % (Auto) Baso % (Auto) Immature Gran # (Auto) Neut # (Auto) Lymph # (Auto) [place] # (Auto) Eos # (Auto) Baso # (Auto) Sodium Potassium Chloride Carbon Dioxide Anion Gap BUN Creatinine Est Cr Clr Drug Dosing Est GFR ( Amer) Est GFR (Non-Af Amer) BUN/Creatinine Ratio Glucose Calcium Total Bilirubin AST ALT Alkaline Phosphatase Total Protein Albumin Globulin Albumin/Globulin Ratio Lipase Urine Color Urine Appearance Urine pH Ur Specific [place] Urine Protein Urine Glucose (UA) Urine Ketones Urine Blood Urine Nitrite Urine Bilirubin Urine Urobilinogen Ur Leukocyte Esterase Urine WBC (Auto) Urine RBC (Auto) U Hyaline Cast (Auto) U Epithel Cells (Auto) Urine Bacteria (Auto) POC Ur Test NEG Diagnostic Findings CT SCAN OF THE ABDOMEN AND PELVIS WITH IV CONTRAST CLINICAL HISTORY: Right lower quadrant abdominal pain. Leukocytosis. COMPARISON STUDY: Abdominal CT dated 08/23/2013. TECHNIQUE: Following the IV administration of 70 cc of Optiray 320, CT scan of the abdomen and pelvis is performed from the lung bases to the proximal femora. Images are reviewed in the axial, sagittal, and coronal planes. IV contrast was administered without complication. A dose lowering technique was utilized adhering to the principles of ALARA. CT DOSE: 676.14 mGy.cm FINDINGS: Lung bases: The heart is normal in size and without pericardial effusion. The lung bases are clear. Liver: The contrast-enhanced liver is normal in size, contour, and attenuation. There is no intrahepatic biliary ductal dilatation. The hepatic veins and portal veins are patent. Gallbladder: Unremarkable. Spleen: Normal in size and attenuation. Pancreas: Unremarkable. Adrenal glands: Unremarkable. Kidneys: The contrast enhanced kidneys are normal in size and without hydronephrosis. The kidneys enhance symmetrically. Abdominal vasculature: The abdominal aorta is normal in course and caliber noting mild atherosclerotic calcification. Bowel: The small bowel and colon are normal in course and caliber. The appendix is retrocecal in location. The appendix is distended and fluid-filled, measuring up to 9 mm in diameter as seen on image #314. The appendiceal wall appears hyperemic and there is periappendiceal inflammation. The appearance is consistent with acute appendicitis. There is no evidence of abscess. Peritoneum: There is no intraperitoneal free air or abdominal ascites. There is a small fat-containing umbilical hernia. Lymphadenopathy: None. Pelvic viscera: The bladder is normal as visualized. The uterus is surgically absent. No adnexal lesion is seen. Skeletal structures: No lytic or blastic lesions are seen. IMPRESSION: Findings are consistent with acute appendicitis. There is no evidence of abscess or perforation. PG Care Time/CCT Total # of Minutes Spent Total Time Spent with Patient: Total time spent is greater than 50% in coordination of care (as documented) at patient's floor/unit and/or counseling p atient: (1) Acute appendicitis with localized peritonitis Appendicitis gangrene presence: without gangrene Appendicitis perforation presence: without perforation Appendicitis abscess presence: without abscess Qualified Code(s): K35.30 - Acute appendicitis with localized peritonitis, without perforation or gangrene
[2019-01-04] MEDS ORDERED: KETOROLAC 30 MG/ML VIAL ONE (23:28)
--- NOTE | 2019-01-04 23:38 | Operative Report ---
PG Post Operative Report Pre & Post Diagnosis Operation Date: 01/04/19 22:30 Pre-Op Diagnosis: LOWER RIGHT ABDOMINAL PAIN Post-Op Diagnosis: LOWER RIGHT ABDOMINAL PAIN Procedure Operation Date: 01/04/19 22:30 Actual Procedures p Laparoscopic Appendectomy - Chip Bautista DO, FACS Surgeon Chip Bautista DO, FACS [employer] None Estimated Blood Loss 3 Findings Consistent with Post-Op Diagnosis Acute, nonperforated appendicitis Specimens Appendix Anesthesia Type General Complications none Disposition Accompanied Patient To Recovery: No Disposition: Recovery Room Indications 48-year-old female presented to the emergency department with signs and symptoms of acute appendicitis, plan for laparoscopic appendectomy. The risks of the procedure were discussed, all questions were answered, and the patient agreed to proceed with surgery as planned. Description of Procedure The patient was properly identified, consented, and taken to the operating room where she was placed in the supine position. General endotracheal anesthesia was induced. SCDs and a safety belt were placed. Preoperative antibiotics were administered. A Barker catheter was not placed. The patient's abdomen was prepped and draped in the standard sterile fashion. Surgical timeout was performed and all parties were in agreement that this was the correct patient and procedure to be performed and we continued as planned. A curvilinear infraumbilical incision was made with electrocautery and deepened down to the fascia with blunt dissection. The base of the umbilicus was grasped with a Jessica and elevated towards the ceiling. An incision was made in the midline fascia with a knife and entry into the peritoneum was confirmed. Stay suture of 0 Vicryl was placed and a Cook trocar was inserted. The abdomen was insufflated with carbon dioxide which the patient tolerated without incident. The laparoscope was inserted and no damage from initial trocar placement was noted, no gross abnormalities were noted within the 4 quadrants the abdomen. 5 mm ports were then placed in the left lower quadrant with care not to damage the epigastric vessels, and in the suprapubic midline with care not to damage the bladder. The patient was placed in Trendelenburg position and rotated towards the left. The small bowel was swept away from the right lower quadrant. The cecum was grasped with an atraumatic grasper exposing the appendix. The appendix was moderately inflamed and there was no evidence of perforation. There was no fluid in the pelvis. A window was created between the base of the appendix and the mesoappendix. A persaud loaded endoscopic stapler was then used to divide the appendix at its base. A persaud load was then used to divide the mesoappendix. H emostasis was good. The appendix was placed in an Endo Catch bag and removed through the umbilical port site. The right lower quadrant and pelvis was irrigated and hemostasis was found to be good. 5 mm trochars were removed under direct visualization and the abdomen was allowed to collapse. The umbilical port site fascia was closed with 0 Vicryl suture. The wound was irrigated, and the skin of all ports was closed with 4-0 Monocryl subcuticular sutures. Dermabond was placed over the wounds. The patient was extubated in the operating room and taken to the PACU where she recovered without apparent incident. All sponge, instrument and needle counts were correct at the conclusion of the procedure. The patient tolerated the procedure well. I attest to the content of the Intraoperative Record and any orders documented therein. Any exceptions are noted below.
--- NOTE | 2019-01-04 23:40 | Emergency Department Note ---
Entered by Elizabeth Kumar acting as a scribe for ED Provider Note CHIEF COMPLAINT: RLQ abdominal pain HISTORY OF PRESENT ILLNESS: The patient is a 48 year old male who presents to the Emergency Room with complaints of worsening RLQ abdominal pain. The patient states that her pain started 2 days ago. The patient states that she ate lunch and lied down to rest because the pain kept progressing. The patient states that the pain is exa cerbated with movement. The patient rated the pain as a 9/10 when moving, and a 6/10 while resting. The patient notes that she has not had much of an appetite lately. Pt denies LOC, headache, fevers, chills, diaphoresis, visual changes, neck pain, chest pain, breathing difficulties, nausea, vomiting, back pain, melena, hematochezia, urinary symptoms, numbness, weakness, lymphadenopathy, rash, or other complaints. REVIEW OF SYSTEMS: See HPI for pertinent positives and negatives. A total of ten systems were reviewed and were otherwise negative. PMHx/PSHx: Osteoarthritis, degenerative disc disease, partial hysterectomy, unilateral oophorectomy SOCIAL HISTORY: Patient lives at home. PHYSICAL EXAM: GENERAL: Awake, alert, uncomfortable-appearing, in no distress HENT: Normocephalic, atraumatic. Oropharynx unremarkable. EYES: PERRL. Normal conjunctiva. Sclera non-icteric. NECK: Inspection normal. Non-tender. Supple. No nuchal rigidity. FROM. No masses. RESPIRATORY: Clear to auscultation. No wheezes. No rales. Normal respiratory effort. CARDIAC: Borderline tachycardic rate. Normal rhythm. No murmurs. No rubs. Extremities warm and well perfused. Pulses equal. No JVD. GI: Soft, non-distended. RLQ tender to palpation, rebound and guarding present. No masses. Positive Rovsing's sign, positive obturator, positive hip shake. RECTAL: Deferred. MUSCULOSKELETAL: Atraumatic. Chest examination reveals no tenderness. The back is symmetrical on inspection without obvious abnormality. There is no CVA tenderness to palpation. No joint edema. LOWER EXTREMITIES: Calves are equal size bilaterally and non-tender. No edema. No discoloration. NEURO: Normal sensorium. No sensory or motor deficits noted. SKIN: No rash or jaundice noted. EMERGENCY DEPARTMENT COURSE: 2030: Past medical records reviewed. The patient was evaluated in room C12, and a complete history and physical examination were performed. 2145: I discussed the patient's case with Dr. Bautista- General Surgery. He will evaluate the patient for further management. MEDICAL DECISION MAKING: Triage Nursing notes reviewed and agree them. Additional history obtained from significant other.. The patient's history was concerning for abdominal pain. Differential diagnosis: Etiologies such as appendicitis, diverticulitis, PUD, biliary pathology, UTI, pancreatitis, obstruction, mesenteric ischemia, aortic pathology, infections, inflammatory bowel disease, renal colic, as well as others were entertained. Physical examination findings: As above. ER treatment provided: Normal saline hydration IV cefoxitin IV Zofran IV Dilaudid On reassessment the patient felt better. Diagnostics interpreted by me: The labs revealed a moderate leukocytosis on CBC. Chemistry panel was un remarkable. Imaging studies: CT scan abdomen pelvis was performed and concerning for acute appendicitis. No perforation or abscess. Consultation: A consultation was placed with the surgeon on-call, Dr. Bautista.. The case was discussed and diagnostics were reviewed. The patient was taken to the OR for further treatment. IMPRESSION: Acute appendicitis PLAN: Being evaluated by Surgeon The scribe's documentation has been prepared under my direction and personally reviewed by me in its entirety. I confirm that the note above accurately reflects all work, treatment, procedures, and medical decision making performed by me. Impression & Plan Acute appendicitis with localized peritonitis Past Med/Surg History Medical History History of ovarian cyst (Resolved) Osteoarthritis (Chronic) Degenerative disc disease (Chronic) Obesity (Chronic) Atypical chest pain (Resolved) 05/2018 S/P UNREMARKABLE EKG/NEGATIVE TROPONINS- MUSCULAR ETIOLOGY SUSPECTED; NO FURTHER EPISODES SINCE LIDOCAINE PATCH X 1 Anxiety (Chronic) Surgical History History of oophorectomy, unilateral (Resolved) History of partial hysterectomy (Resolved) History of elbow surgery (Resolved) RT History of repair of rotator cuff (Resolved) RT X 2 History of carpal tunnel release (Resolved) RT History of bunionectomy (Resolved) LT History of cervical spinal arthrodesis (Resolved) History of neck surgery History of mandibular surgery (Resolved) R/T INJURY AT AGE 20 - NO ROM ISSUES Social History Preferred Language: Croatian Communication Ability: Effective Parimutuel T[employer] Cashier Required: No Beliefs That Will Affect Care: None Current Living Situation: Spouse Feels Safe at Home: Yes Smoking Status: Current every day smoker Tobacco Type: cigarettes ; Cigarettes Per Day: 1/2 PPD X 25 YEARS ; Second Hand Exposure: Yes ( SMOKES) ; Hx Alcohol Use: Yes Alcohol type: beer Hx Substance Use: No Results & Data Vital Signs Vital Signs - 24 hr 01/04/19 18:35 01/04/19 20:15 01/04/19 20:22 Temperature 37 C Temperature Source Oral Sepsis Recent Fever Within 48 Hours No Sepsis New/Unexplained Change in Mental Status No Sepsis Action Taken by Nursing No Action Required Pulse Rate 97 H Pulse Rate [Finger] 93 H Pulse Rhythm [Finger] Regular Pulse Strength [Finger] Normal Respiratory Rate 18 16 Respiratory Effort / Characteristics Non-Labored Spontaneous Respiratory Depth Normal Respiratory Pattern Regular Blood Pressure 137/80 Blood Pressure [Right Arm] 122/87 Blood Pressure Mean 99 Blood Pressure Mean [Right Arm] 98 Blood Pressure Position [Right Arm] Lying Pulse Oximetry 100 100 98 Oxygen Delivery Method Room Air Room Air 01/04/19 21:22 01/04/19 22:16 Temperature Temperature Source Sepsis Recent Fever Within 48 Hours Sepsis New/Unexplained Change in Mental Status Sepsis Action Taken by Nursing Pulse Rate 93 H Pulse Rate [Finger] 94 H Pulse Rhythm [Finger] Regular Pulse Strength [Finger] Normal Respiratory Rate 16 16 Respiratory Effort / Characteristics Non-Labored Spontaneous Respiratory Depth Normal Respiratory Pattern Regular Blood Pressure 127/85 Blood Pressure [Right Arm] 154/102 H Blood Pressure Mean Blood Pressure Mean [Right Arm] 119 Blood Pressure Position [Right Arm] Lying Pulse Oximetry 97 97 Oxygen Delivery Method Room Air Room Air Home Medications Current Medication List: was personally reviewed by me Laboratory Data Attestation: I reviewed the patient's lab results. Result diagrams: 01/04/19 20:08 01/04/19 20:08 Lab Results 01/04/19 01/04/19 01/04/19 Range/Units 20:08 20:08 20:08 WBC 18.35 H (4.8-10.8) K/uL RBC 4.74 (4.2-5.4) M/uL Hgb 15.3 (12.0-16.0) g/dL Hct 44.7 (37-47) % MCV 94.3 (80-100) fL MCH 32.3 (25-34) pg MCHC 34.2 (32-36) g/dL RDW Std Deviation 43.0 (36.4-46.3) fL RDW Coeff of [place] 12.5 (11.5-14.5) % Plt Count 294 (130-400) K/uL MPV 9.7 (7.4-10.4) fL Immature Gran % (Auto) 0.2 % Neut % (Auto) 67.8 % Lymph % (Auto) 23.7 % Towns % (Auto) 7.6 % Eos % (Auto) 0.5 % Baso % (Auto) 0.2 % Immature Gran # (Auto) 0.04 H (0.00-0.02) K/uL Neut # (Auto) 12.43 H (1.4-6.5) K/uL Lymph # (Auto) 4.35 H (1.2-3.4) K/uL Towns # (Auto) 1.39 H (0.11-0.59) K/uL Eos # (Auto) 0.10 (0-0.5) K/uL Baso # (Auto) 0.04 (0-0.2) K/uL Sodium 139 (136-145) mmol/L Potassium 3.6 (3.5-5.1) mmol/L Chloride 106 (98-107) mmol/L Carbon Dioxide 24 (21-32) mmol/L Anion Gap 9.0 (3-11) BUN 13 (7-18) mg/dl Creatinine 0.90 (0.6-1.2) mg/dl Est Cr Clr Drug Dosing 79.7 ml/min Est GFR ( Amer) 88.3 Est GFR (Non-Af Amer) 76.1 BUN/Creatinine Ratio 14.5 (10-20) Glucose 93 (70-99) mg/dl Calcium 9.8 (8.5-10.1) mg/dl Total Bilirubin 0.4 (0.2-1) mg/dl AST 12 L (15-37) U/L ALT 23 (12-78) U/L Alkaline Phosphatase 93 (45-117) U/L Total Protein 8.0 (6.4-8.2) gm/dl Albumin 4.3 (3.4-5.0) gm/dl Globulin 3.7 (2.5-4.0) gm/dl Albumin/Globulin Ratio 1.2 (0.9-2) Lipase 286 (73-393) U/L Urine Color Yellow Urine Appearance Cloudy A (Clear) Urine pH 8.5 H (4.5-7.5) Ur Specific [place] 1.016 (1.000-1.030) Urine Protein Negative (Negative) Urine Glucose (UA) Negative (Negative) Urine Ketones Negative (Negative) Urine Blood 1+ H (Negative) Urine Nitrite Negative (Negative) Urine Bilirubin Negative (Negative) Urine Urobilinogen Negative (Negative) Ur Leukocyte Esterase Negative (Negative) Urine WBC (Auto) 1-5 (0-5) /hpf Urine RBC (Auto) 5-10 H (0-4) /hpf U Hyaline Cast (Auto) 1-5 (0-5) /lpf U Epithel Cells (Auto) >30 H (0-5) /lpf Urine Bacteria (Auto) Negative (Negative) POC Ur Test (NEG) 01/04/19 Range/Units 20:14 WBC (4.8-10.8) K/uL RBC (4.2-5.4) M/uL Hgb (12.0-16.0) g/dL Hct (37-47) % MCV (80-100) fL MCH (25-34) pg MCHC (32-36) g/dL RDW Std Deviation (36.4-46.3) fL RDW Coeff of [place] (11.5-14.5) % Plt Count (130-400) K/uL MPV (7.4-10.4) fL Immature Gran % (Auto) % Neut % (Auto) % Lymph % (Auto) % Towns % (Auto) % Eos % (Auto) % Baso % (Auto) % Immature Gran # (Auto) (0.00-0.02) K/uL Neut # (Auto) (1.4-6.5) K/uL Lymph # (Auto) (1.2-3.4) K/uL Towns # (Auto) (0.11-0.59) K/uL Eos # (Auto) (0-0.5) K/uL Baso # (Auto) (0-0.2) K/uL Sodium (136-145) mmol/L Potassium (3.5-5.1) mmol/L Chloride (98-107) mmol/L Carbon Dioxide (21-32) mmol/L Anion Gap (3-11) BUN (7-18) mg/dl Creatinine (0.6-1.2) mg/dl Est Cr Clr Drug Dosing ml/min Est GFR ( Amer) Est GFR (Non-Af Amer) BUN/Creatinine Ratio (10-20) Glucose (70-99) mg/dl Calcium (8.5-10.1) mg/dl Total Bilirubin (0.2-1) mg/dl AST (15-37) U/L ALT (12-78) U/L Alkaline Phosphatase (45-117) U/L Total Protein (6.4-8.2) gm/dl Albumin (3.4-5.0) gm/dl Globulin (2.5-4.0) gm/dl Albumin/Globulin Ratio (0.9-2) Lipase (73-393) U/L Urine Color Urine Appearance (Clear) Urine pH (4.5-7.5) Ur Specific [place] (1.000-1.030) Urine Protein (Negative) Urine Glucose (UA) (Negative) Urine Ketones (Negative) Urine Blood (Negative) Urine Nitrite (Negative) Urine Bilirubin (Negative) Urine Urobilinogen (Negative) Ur Leukocyte Esterase (Negative) Urine WBC (Auto) (0-5) /hpf Urine RBC (Auto) (0-4) /hpf U Hyaline Cast (Auto) (0-5) /lpf U Epithel Cells (Auto) (0-5) /lpf Urine Bacteria (Auto) (Negative) POC Ur Test NEG (NEG) Administered Medications Hydromorphone HCl (Dilaudid) 0.5 mg IV Q15M PRN PRN Reason: Pain Stop: 01/18/19 20:31 Last Admin: 01/04/19 22:13 Dose: 0.5 mg Documented by: [id number] Admin: 01/04/19 21:20 Dose: 0.5 mg Documented by: [id number] Admin: 01/04/19 20:38 Dose: 0.5 mg Documented by: [id number] Ioversol (Optiray 320 100ml) 70 ml IV ONCE PRN PRN Reason: Interaction Checking Stop: 01/08/19 20:54 Last Admin: 01/04/19 20:55 Dose: 70 ml Documented by: [id number] Discontinued Medications Bupivacaine HCl (Marcaine 0.5% Mpf) Confirm Administered Dose 30 ml .ROUTE .STK- MED ONE Stop: 01/04/19 21:58 Last Admin: 01/04/19 23:28 Dose: 25 ml Documented by: [id number] Cefoxitin Sodium (Mefoxin) 2,000 mg in 60 mls @ 100 mls/hr IV NOW STA Stop: 01/04/19 22:08 Last Admin: 01/04/19 21:52 Dose: 100 mls/hr Documented by: [id number] Ondansetron HCl (Zofran) 4 mg IV NOW STA Stop: 01/04/19 20:33 Last Admin: 01/04/19 20:38 Dose: 4 mg Documented by: [id number] Imaging Data Radiologist's Impression: Radiology results as stated below per my review and the radiologist's interpretation: CT SCAN OF THE ABDOMEN AND PELVIS WITH IV CONTRAST CLINICAL HISTORY: Right lower quadrant abdominal pain. Leukocytosis. COMPARISON STUDY: Abdominal CT dated 08/23/2013. TECHNIQUE: Following the IV administration of 70 cc of Optiray 320, CT scan of the abdomen and pelvis is performed from the lung bases to the proximal femora. Images are reviewed in the axial, sagittal, and coronal planes. IV contrast was administered without complication. A dose lowering technique was utilized adhering to the principles of ALARA. CT DOSE: 676.14 mGy.cm FINDINGS: Lung bases: The heart is normal in size and without pericardial effusion. The lung bases are clear. Liver: The contrast-enhanced liver is normal in size, contour, and attenuation. There is no intrahepatic biliary ductal dilatation. The hepatic veins and portal veins are patent. Gallbladder: Unremarkable. Spleen: Normal in size and attenuation. Pancreas: Unremarkable. Adrenal glands: Unremarkable. Kidneys: The contrast enhanced kidneys are normal in size and without hydronephrosis. The kidneys enhance symmetrically. Abdominal vasculature: The abdominal aorta is normal in course and caliber noting mild atherosclerotic calcification. Bowel: The small bowel and colon are normal in course and caliber. The appendix is retrocecal in location. The appendix is distended and fluid-filled, measuring up to 9 mm in diameter as seen on image #[id number]. The appendiceal wall appears hyperemic and there is periappendiceal inflammation. The appearance is consistent with acute appendicitis. There is no evidence of abscess. Peritoneum: There is no intraperitoneal free air or abdominal ascites. There is a small fat-containing umbilical hernia. Lymphadenopathy: None. Pelvic viscera: The bladder is normal as visualized. The uterus is surgically absent. No adnexal lesion is seen. Skeletal structures: No lytic or blastic lesions are seen. IMPRESSION: Findings are consistent with acute appendicitis. There is no evidence of abscess or perforation. Electronically signed by: Nestor Moyer M.D. 01/04/2019 9:05 PM Blood Pressure Blood Pressure Findings: Elevated blood pressure Blood Pressure Disposition: further management by hospitalist Discharge Plan Visit Data *Final* Discharge Date/Time: 01/04/19 22:16 Chief Complaint: Abdominal Pain Stated Complaint: LOWER RIGHT ABD PAIN, SOB ED Provider: Devon Zhou Discharge Problem: Acute appendicitis with localized peritonitis Patient Disposition: Admitted As Inpatient Discharge Instructions Interventions: ED Discharge Assessment Last Done: 01/04/19 22:16 The scribe's documentation has been prepared under my direction and personally reviewed by me in its entirety. I confirm that the note above accurately reflects all work, treatment, procedures, and medical decision making performed by me.
[2019-01-05] MEDS ORDERED: PROMETHAZINE HCL 25 MG in SODIUM CHLORIDE 0.9% 50 ML IV STA (00:04)
--- NOTE | 2019-01-05 00:30 | Anesthesiology Progress Note ---
Date of Service January 05, 2019 Anesthesia Post Procedure Vital Signs Vital Signs: Temp Pulse Pulse Pulse Resp BP BP 01/05/19 00:20 78 13 127/81 01/05/19 00:10 76 12 117/74 01/05/19 00:00 80 14 118/74 01/04/19 23:50 36.1 C L 84 23 108/61 01/04/19 22:16 93 H 16 127/85 01/04/19 21:22 94 H 16 154/102 H 01/04/19 20:22 93 H 16 122/87 01/04/19 20:15 01/04/19 18:35 37 C 97 H 18 137/80 Pulse Ox 01/05/19 00:20 98 01/05/19 00:10 94 01/05/19 00:00 92 01/04/19 23:50 96 01/04/19 22:16 97 01/04/19 21:22 97 01/04/19 20:22 98 01/04/19 20:15 100 01/04/19 18:35 100 Pain Intensity Right Lower Abdomen: Pain Intensity: 3 Transfer of Care Handoff Completed per policy Notes Mental Status: alert / awake / arousable Patient Amnestic to Procedure: Yes Nausea / Vomiting: adequately controlled Pain: adequately controlled Airway Patency, RR, SpO2: stable & adequate BP & HR: stable & adequate Hydration State: stable & adequate Anesthetic Complications: no major complications apparent and Pt Satisfied with anesthetic care
[2019-01-05] MEDS ORDERED: HYDROCODONE/ACETAMOPHEN 5/325MG TAB PO PRN ×2 (01:09)
[2019-01-05] MEDS ORDERED: MoRPHine SULFATE 2 MG/ML CARP IV PRN (01:09)
[2019-01-05] MEDS ORDERED: ONDANSETRON INJ 2 MG/ML 2 ML VIAL IV PRN (01:09)
[2019-01-05] MEDS ORDERED: DiphenhydrAMINE HCL 50 MG/ML VIAL IV PRN (01:09)
[2019-01-05] MEDS ORDERED: MoRPHine SULFATE 4 MG/ML 1 ML CARP\\VIAL IV PRN (01:09)
[2019-01-05] MEDS ORDERED: KETOROLAC 30 MG/ML VIAL IV SCH (02:00)
[2019-01-05] MEDS: AMPICILLIN/SULBACTAM SOD 3,000 MG in 0.9 % SODIUM CHLORIDE 100 ML IV SCH ×2 (02:11→08:01)
[2019-01-05] MEDS: LACTATED RINGER'S 1,000 ML IV SCH ×2 (03:32→09:13)
[2019-01-05] MEDS ORDERED: HEPARIN SOD 5,000 UNIT/0.5 ML VIAL SQ SCH (06:00)
[2019-01-05] MEDS: KETOROLAC TROMETHAMINE 15 MG/ML VIAL IV SCH ×2 (06:13→12:01)
[2019-01-05 06:54] LABS: Basophils # (auto) 0.01 K/uL (0-0.2); Basophils % (auto) 0.1 %; Hematocrit (blood only) 43.4 % (37-47); Hemoglobin 14.5 g/dL (12.0-16.0); Immature Granulocytes # (auto) 0.04 K/uL (0.00-0.02); Immature Granulocytes % (auto) 0.2 %; Lymphocytes # (auto) 1.34 K/uL (1.2-3.4); Lymphocytes % (auto) 8.2 %; Mean Corpuscular Hgb Conc 33.4 g/dL (32-36); Mean Corpuscular Volume 95.8 fL (80-100); Mean Platelet Volume 9.7 fL (7.4-10.4); Monocytes # (auto) 0.17 K/uL (0.11-0.59); Neutrophils # (auto) 14.82 K/uL (1.4-6.5); Neutrophils % (auto) 90.5 %; Platelet Count 274 K/uL (130-400); RDW Coefficient of Variation 12.7 % (11.5-14.5); RDW Standard Deviation 44.3 fL (36.4-46.3); Red Blood Count 4.53 M/uL (4.2-5.4); White Blood Count 16.38 K/uL (4.8-10.8)
--- NOTE | 2019-01-05 08:47 | Surgery Progress Note ---
Date of Service January 05, 2019 Assessment & Plan (1) Acute appendicitis with localized peritonitis: POD#1 laparoscopic appendectomy Feeling well this AM; tolerating clear liquids Advance diet to regular as tolerates Pain controlled Vital signs stable Plan for possible discharge to home today Supervising Physician Co-Signing Physician Notes Pnt S&E, agree with above. POD#1 lap appy. Pain improved, tolerating diet. abd soft, nt, incision c/d/i. d/c to home f/u in 2 weeks activity restrictions and wound care reviewed return precautions given Subjective Patient feeling well this AM. Had some dry heaving post op that has now resolved. Tolerated clear liquids without nausea this AM. Pain controlled. Physical Exam Physical Exam: awake/alert/sitting up in bed Constitutional: well developed and well nourished; no acute distress Gastrointestinal (Abdomen): Inspection/Auscultation: + abdominal surgical incision (c/d/i with dermabond overtop) Percussion/Palpation: abdomen soft; abdomen nontender Results & Data Vital Signs (Past 12 Hours) Vital Signs Temp Pulse Pulse Pulse Pulse Resp BP 01/05/19 07:29 36.9 C 97 H 16 01/05/19 04:06 36.7 C 83 16 01/05/19 03:00 36.7 C 82 18 01/05/19 02:05 36.4 C L 76 16 01/05/19 01:42 36.5 C 80 16 01/05/19 01:00 36.5 C 93 H 18 01/05/19 00:45 36.4 C L 73 14 01/05/19 00:30 77 17 01/05/19 00:20 78 13 01/05/19 00:10 76 12 01/05/19 00:00 80 14 01/04/19 23:50 36.1 C L 84 23 01/04/19 22:16 93 H 16 127/85 01/04/19 21:22 94 H 16 BP Pulse Ox 01/05/19 07:29 90/58 L 94 01/05/19 04:06 112/74 94 01/05/19 03:00 117/74 100 01/05/19 02:05 104/70 100 01/05/19 01:42 119/83 97 01/05/19 01:00 139/90 98 01/05/19 00:45 129/78 97 01/05/19 00:30 124/67 98 01/05/19 00:20 127/81 98 01/05/19 00:10 117/74 94 01/05/19 00:00 118/74 92 01/04/19 23:50 108/61 96 01/04/19 22:16 97 01/04/19 21:22 154/102 H 97 PG Care Time/CCT Total # of Minutes Spent Total Time Spent with Patient: Total time spent is greater than 50% in coordination of care (as documented) at patient's floor/unit and/or counseling patient:
--- NOTE | 2019-01-05 13:17 | Discharge Summary ---
Date of Service January 05, 2019 Admission HPI Per Admitting Provider 48-year-old female presented to the emergency department with abdominal pain. Pain started on Monday is an ill feeling in her stomach with pain is diffuse very umbilical pain. After eating lunch this afternoon her pain migrated to the right lower quadrant and became more severe. She also has associated nausea and vomiting. [place] chills. Positive anorexia. No prior episodes. Principal Diagnosis acute appendicitis Discharge Exam awake/alert/sitting up in bed Constitutional well developed and well nourished; no acute distress Respiratory normal respiratory effort; no respiratory distress Gastrointestinal (Abdomen) Inspection/Auscultation: + abdominal surgical incision (c/d/i with dermabond overtop) Percussion/Palpation: abdomen soft; abdomen nontender Discharge Data Allergies Allergy/AdvReac Type Severity Reaction Status Date / Time oxycodone AdvReac Severe SHORTNESS Verified 01/04/19 21:33 OF BREATH Consultations 01/04/19 21:36 ED Decision to Admit Stat Procedures Performed Operation Date: 01/04/19 22:30 Actual Procedures p Laparoscopic Appendectomy - Chip Bautista DO, FACS Ordered Studies 01/04/19 20:32 CT abd pelvis IV con only Stat Hospital Course (1) Acute appendicitis: This is a 48y F who presented to the [facility] ED on 01/04/19 with complaints of abdominal pain associated with nausea/vomiting. Workup in the ED included a CT scan that revealed findings of acute appendicitis without evidence of perforation or abscess. WBC 18. General surgery was consulted for further evaluation and decision was made to take patient to the OR for surgical manag ement. Patient was made NPO with IVF and IV abx. Patient subsequently went to the OR with Dr. Bautista and underwent a laparoscopic appendectomy. The patient tolerated the procedure well, see operative report for full details. Post operatively the patient's diet was advanced from clears to regular, pain was well controlled, she was voiding spontaneously, and incisions clean/dry/intact. On POD#1 the patient was tolerating a regular diet, pain continued to be controlled, and she clinically looked well. The patient was deemed stable for discharge to home with instructions to follow up in clinic within 2 weeks. Total Time Total Time Spent Total Time Spent (In Minutes): 15 Discharge Plan Discharge Items Patient Disposition: Home - Self-Care Reason For Visit: APPENDICITIS Discharge Diagnosis: acute appendicitis Activity: Per Instructions section Lifting: No more than 10 pounds Bathing Comment: you may shower starting tomorrow-01/06/19 Exercise/Sports: Wait until after follow-up appointment Exercise Comment: light activity for 3 weeks Driving/Machine Use: do not resume driving while taking narcotics for pain Non-emergency contact: Surgeon Call non-emergency contact if: you have any medication questions, your symptoms worsen, your pain is not controlled, your pain is concerning for you, your temperature is above 101.5, your wound has increased redness, your wound has increased drainage and your wound pain has increased Follow-up/Referrals: Chip Bautista, REAGAN RAM [Physician] - (Please call the clinic to schedule follow up within 2 weeks. You may call the office sooner if you have any questions/concerns.) Skip Mcknight [Primary Care Provider] - Diet: Regular Addtl Attending Provider Instructions: Pending Studies at Discharge: No Stand-Alone Forms: Call Back Authorization, [facility] Medications and DC Order Prescriptions: New hydrocodone-acetaminophen [[place]] 5-325 mg tablet 1 - 2 tab PO .every 4-6 hours PRN (Reason: pain, for initial therapy.) Qty: 15 RF: 0 Continued lorazepam 0.5 mg tablet 0.5 mg PO BID PRN (Reason: Anxiety) RF: 0 ibuprofen [Advil] 200 mg Tablet 600 mg PO BID PRN (Reason: Pain) RF: 0 Discharge Orders: Discharge Order (Routine); Ordered 01/05/19 Ordered By: Danica Garcia Admission Data Admit Date/Time: 01/04/19 23:44 Attending Provider: Chip Bautista Admit Provider: Chip Bautista Primary Care Provider: Skip Mcknight Other Providers: Chip Bautista Other Interventions: Discharge Summary Assessment (RN) Last Done: 01/05/19 12:38 DC Date/Time DO NOT enter until pt leaves facility: 01/05/19 13:28
== END 2019-01-05 13:28 | disposition home or self-care (01) ==
LOC: ED 18:22 → 3W 22:16 → ASU 22:16

== ENCOUNTER 2019-11-18 12:51 | Observation (INO) ==
[2019-11-18 13:45] LABS: Basophils # (auto) 0.04 K/uL (0-0.2); Basophils % (auto) 0.3 %; Eosinophils # (auto) 0.05 K/uL (0-0.5); Eosinophils % (auto) 0.4 %; Hematocrit (blood only) 44.9 % (37-47); Hemoglobin 15.2 g/dL (12.0-16.0); Immature Granulocytes # (auto) 0.02 K/uL (0.00-0.02); Immature Granulocytes % (auto) 0.2 %; Lymphocytes # (auto) 3.81 K/uL (1.2-3.4); Lymphocytes % (auto) 31.8 %; Mean Corpuscular Hemoglobin 32.1 pg (25-34); Mean Corpuscular Hgb Conc 33.9 g/dL (32-36); Mean Corpuscular Volume 94.9 fL (80-100); Mean Platelet Volume 9.1 fL (7.4-10.4); Monocytes % (auto) 5.8 %; Neutrophils # (auto) 7.37 K/uL (1.4-6.5); Neutrophils % (auto) 61.5 %; Platelet Count 396 K/uL (130-400); RDW Coefficient of Variation 12.8 % (11.5-14.5); RDW Standard Deviation 44.5 fL (36.4-46.3); Red Blood Count 4.73 M/uL (4.2-5.4); White Blood Count 11.99 K/uL (4.8-10.8)
[2019-11-18 14:02] LABS: Albumin Level 4.2 gm/dl (3.4-5.0); BUN Creatinine Ratio 10.6 (10-20); Calcium 9.2 mg/dl (8.5-10.1); Est GFR (African American) 85.3; Est GFR (Non-African American) 73.6; Potassium 4.2 mmol/L (3.5-5.1)
[2019-11-18 14:04] LABS: Albumin Globulin Ratio 1.2 (0.9-2); Bilirubin,Total 0.7 mg/dl (0.2-1); Globulin 3.5 gm/dl (2.5-4.0); Total Protein 7.7 gm/dl (6.4-8.2)
[2019-11-18] MEDS ORDERED: HYDROmorphone INJ 1 MG/ML SYRINGE IV STA (14:47)
[2019-11-18] MEDS ORDERED: ONDANSETRON INJ 2 MG/ML 2 ML VIAL IV STA (14:47)
--- NOTE | 2019-11-18 15:03 | Emergency Department Note ---
History of Present Illness General Chief complaint: Abdominal Pain Stated complaint: CYSTS ON OVARIES, PAIN Time Seen by Provider: 11/18/19 14:30 History of Present Illness Maximum Pain Intensity: 7 This is a 49-year-old female that presents to the emergency department via private vehicle with complaints of "cysts on ovaries, pain". Patient notes that she has been experiencing lower abdominal discomfort for several days and was evaluated here this past Monday. She states that she was told she had ovarian cysts, colitis, and notes something abnormal about the appendix but notes she is status post appendectomy. She notes persistent and now worsening of the lower abdominal discomfort. She points to the left and right lower quadrant and suprapubic region as a location of pain that she currently rates as a 7/10. She denies any trauma or injury. She notes that she has not been able to eat or sleep secondary to this discomfort. She describes her symptoms similar to when she had acute appendicitis. She notes associated nausea but no vomiting. She denies any fevers, chills, trauma, injury, chest pain or shortness of breath. She notes a history of hysterectomy age 23 with right oophorectomy at age 24. Home Medications Home Medications Medication Instructions Recorded Confirmed Type lorazepam 0.5 mg PO BID PRN 02/13/18 11/18/19 History ibuprofen [Advil] 600 mg PO BID PRN 01/04/19 11/18/19 History docusate sodium [Colace] 100 mg PO BID #60 cap 11/16/19 11/18/19 Rx hydrocodone-acetaminophen [[place]] 1 tab PO Q6H PRN #14 tab 11/16/19 11/18/19 Rx sennosides [Senokot] 8.6 mg PO HS #30 tab 11/16/19 11/18/19 Rx Allergies Allergy/AdvReac Type Severity Reaction Status Date / Time oxycodone AdvReac Severe SHORTNESS Verified 11/18/19 16:05 OF BREATH Past Med/Surg History Medical History Anxiety (Chronic) Atypical chest pain (Resolved) 05/2018 S/P UNREMARKABLE EKG/NEGATIVE TROPONINS- MUSCULAR ETIOLOGY SUSPECTED; NO FURTHER EPISODES SINCE LIDOCAINE PATCH X 1 Degenerative disc disease (Chronic) History of ovarian cyst (Resolved) Obesity (Chronic) Osteoarthritis (Chronic) Surgical History History of bunionectomy (Resolved) LT History of carpal tunnel release (Resolved) RT History of cervical spinal arthrodesis (Resolved) History of elbow surgery (Resolved) RT History of mandibular surgery (Resolved) R/T INJURY AT AGE 20 - NO ROM ISSUES History of neck surgery History of oophorectomy, unilateral (Resolved) History of partial hysterectomy (Resolved) History of repair of rotator cuff (Resolved) RT X 2 Social History Smoking Status: Never smoker Cigarettes Per Day: 1/2 pack per day; Second Hand Exposure: Yes ( smokes); Hx Alcohol Use: Yes Alcohol type: beer Hx Substance Use: No Preferred Language: Albanian Communication Ability: Effective Buildings And Grounds Superintendent Required: No Beliefs That Will Affect Care: None Current Living Situation: Spouse Feels Safe at Home: Yes Review of Systems A total of 10 systems reviewed and were otherwise negative Physical Exam Vital Signs Vital Signs - 24 hr 11/18/19 13:25 11/18/19 15:39 11/18/19 16:17 Temperature 37.4 C Temperature Source Oral Pulse Rate 100 H 79 78 Pulse Rate [Right Finger] 88 Pulse Rate from SpO2 Sensor 79 79 Respiratory Rate 18 21 16 Respiratory Effort / Characteristics Non-Labored Non-Labored Spontaneous Respiratory Depth Normal Normal Respiratory Pattern Regular Blood Pressure 133/77 125/86 Blood Pressure [Right Arm] 125/86 Blood Pressure Mean 95 92 Blood Pressure Mean [Right Arm] 99 Pulse Oximetry 98 96 97 Oxygen Delivery Method Room Air Room Air Sepsis Recent Fever Within 48 Hours No Sepsis New/Unexplained Change in Mental Status No Sepsis Action Taken by Nursing No Action Required 11/18/19 16:30 11/18/19 16:38 11/18/19 17:00 Temperature Temperature Source Pulse Rate 78 75 74 Pulse Rate [Right Finger] Pulse Rate from SpO2 Sensor 78 74 74 Respiratory Rate 15 15 14 Respiratory Effort / Characteristics Respiratory Depth Respiratory Pattern Blood Pressure 114/83 122/81 Blood Pressure [Right Arm] Blood Pressure Mean 89 95 Blood Pressure Mean [Right Arm] Pulse Oximetry 92 94 93 Oxygen Delivery Method Sepsis Recent Fever Within 48 Hours Sepsis New/Unexplained Change in Mental Status Sepsis Action Taken by Nursing 11/18/19 17:30 Temperature Temperature Source Pulse Rate 84 Pulse Rate [Right Finger] Pulse Rate from SpO2 Sensor 84 Respiratory Rate 24 Respiratory Effort / Characteristics Respiratory Depth Respiratory Pattern Blood Pressure 124/85 Blood Pressure [Right Arm] Blood Pressure Mean 98 Blood Pressure Mean [Right Arm] Pulse Oximetry 98 Oxygen Delivery Method Sepsis Recent Fever Within 48 Hours Sepsis New/Unexplained Change in Mental Status Sepsis Action Taken by Nursing VITAL SIGNS - Vital signs and nursing notes were reviewed. Stable and afebrile. GENERAL -49-year-old female appearing her stated age who is in no acute distress. Communicates well with provider and answers questions appropriately. SKIN - Without rashes. HEAD - NC/AT. EYES - PERRL with EOMI bilaterally. Sclera anicteric. NOSE - Midline and without cyanosis. No epistaxis or purulent drainage noted. MOUTH/OROPHARYNX - Without perioral cyanosis. Buccal mucosa pink and moist and without leukoplakia. Tongue midline with equal elevation of palate bilaterally. NECK - Neck with FROM. No nuchal rigidity. LUNGS - Chest wall symmetric without accessory muscle use, intercostals retract ions, or central cyanosis. Normal vesicular breath sounds CTA B/L. No wheezes, rales, or rhonchi appreciated. CARDIAC - RRR with S1/S2. No murmur, rubs, or gallops appreciated. ABDOMEN - Abdominal contour normal without pulsations or visible masses. BS normoactive all four quadrants. There is lower abdominal tenderness to palpation. Abdomen is soft and nonrigid. No palpable masses, hepatosplen omegaly, or ascites noted. EXTREMITIES - No clubbing or peripheral cyanosis. No pretibial edema present. +5/5 strength noted in UE/LE bilaterally. NEUROLOGIC - Cranial nerves II through XII grossly intact. PSYCH - A&O, and cooperates fully with examiner. Pt is very pleasant and interacts well with examiner. Course Administered Medications Discontinued Medications Hydromorphone HCl (Dilaudid) 1 mg IV NOW STA Stop: 11/18/19 14:48 Last Admin: 11/18/19 15:12 Dose: 1 mg Documented by: [id number] Hydromorphone HCl (Dilaudid) 0.5 mg IV NOW STA Stop: 11/18/19 15:53 Last Admin: 11/18/19 16:17 Dose: 0.5 mg Documented by: [id number] Acetaminophen (Ofirmev) 1,000 mg in 100 mls @ 400 mls/hr IV NOW STA Stop: 11/18/19 16:06 Last Infusion: 11/18/19 16:37 Dose: 0 mls/hr Documented by: [id number] Admin: 11/18/19 16:20 Dose: 400 mls/hr Documented by: [id number] Sodium Chloride (Nss 1000ml) 1,000 mls @ 999 mls/hr IV .Q1H1M ITZEL Stop: 11/18/19 17:00 Last Infusion: 11/18/19 17:18 Dose: 0 mls/hr Documented by: [id number] Admin: 11/18/19 16:15 Dose: 999 mls/hr Documented by: [id number] Ioversol (Optiray 320 100ml) 94 ml IV ONCE ONE Stop: 11/18/19 15:27 Last Admin: 11/18/19 15:26 Dose: 94 ml Documented by: [id number] Ketorolac Tromethamine (Toradol) 15 mg IV NOW STA Stop: 11/18/19 15:53 Last Admin: 11/18/19 16:16 Dose: 15 mg Documented by: [id number] Ondansetron HCl (Zofran) 4 mg IV NOW STA Stop: 11/18/19 14:48 Last Admin: 11/18/19 15:12 Dose: 4 mg Documented by: [id number] Medical Decision Making Laboratory Data Result diagrams: 11/18/19 13:36 11/18/19 13:36 Lab Results 11/18/19 11/18/19 11/18/19 Range/Units 13:36 13:36 15:40 WBC 11.99 H (4.8-10.8) K/uL RBC 4.73 (4.2-5.4) M/uL Hgb 15.2 (12.0-16.0) g/dL Hct 44.9 (37-47) % MCV 94.9 (80-100) fL MCH 32.1 (25-34) pg MCHC 33.9 (32-36) g/dL RDW Std Deviation 44.5 (36.4-46.3) fL RDW Coeff of [place] 12.8 (11.5-14.5) % Plt Count 396 (130-400) K/uL MPV 9.1 (7.4-10.4) fL Immature Gran % (Auto) 0.2 % Neut % (Auto) 61.5 % Lymph % (Auto) 31.8 % [place] % (Auto) 5.8 % Eos % (Auto) 0.4 % Baso % (Auto) 0.3 % Neut # (Auto) 7.37 H (1.4-6.5) K/uL Lymph # (Auto) 3.81 H (1.2-3.4) K/uL [place] # (Auto) 0.70 H (0.11-0.59) K/uL Eos # (Auto) 0.05 (0-0.5) K/uL Baso # (Auto) 0.04 (0-0.2) K/uL Immature Gran # (Auto) 0.02 (0.00-0.02) K/uL Sodium 138 (136-145) mmol/L Potassium 4.2 (3.5-5.1) mmol/L Chloride 108 H (98-107) mmol/L Carbon Dioxide 24 (21-32) mmol/L Anion Gap 6.0 (3-11) BUN 10 (7-18) mg/dl Creatinine 0.92 (0.6-1.2) mg/dl Est Cr Clr Drug Dosing 75.0 ml/min Est GFR ( Amer) 85.3 Est GFR (Non-Af Amer) 73.6 BUN/Creatinine Ratio 10.6 (10-20) Glucose 84 (70-99) mg/dl Calcium 9.2 (8.5-10.1) mg/dl Total Bilirubin 0.7 (0.2-1) mg/dl AST 12 L (15-37) U/L ALT 19 (12-78) U/L Alkaline Phosphatase 80 (45-117) U/L Total Protein 7.7 (6.4-8.2) gm/dl Albumin 4.2 (3.4-5.0) gm/dl Globulin 3.5 (2.5-4.0) gm/dl Albumin/Globulin Ratio 1.2 (0.9-2) Lipase 260 (73-393) U/L Urine Color Dark Yellow Urine Appearance Clear (Clear) Urine pH 6.0 (4.5-7.5) Ur Specific [place] 1.019 (1.000-1.030) Urine Protein Negative (Negative) Urine Glucose (UA) Negative (Negative) Urine Ketones 2+ H (Negative) Urine Blood 2+ H (Negative) Urine Nitrite Negative (Negative) Urine Bilirubin Negative (Negative) Urine Urobilinogen Negative (Negative) Ur Leukocyte Esterase Trace H (Negative) Urine WBC (Auto) 1-5 (0-5) /hpf Urine RBC (Auto) 10-30 H (0-4) /hpf U Hyaline Cast (Auto) 1-5 (0-5) /lpf U Epithel Cells (Auto) >30 H (0-5) /lpf Urine Bacteria (Auto) Negative (Negative) Imaging Data Radiologist's Impression: CT abd pelvis IV con only CT DOSE: 622.33 mGy.cm HISTORY: Pain Persistent lower abdominal discomfort TECHNIQUE: Multiaxial CT images of the abdomen and pelvis were performed following the use of intravenous contrast. A dose lowering technique was utilized adhering to the principles of ALARA. COMPARISON STUDY: 2019 FINDINGS: Lung bases are clear. Liver spleen and pancreas are unremarkable. Kidneys negative for hydronephrosis. Abdominal bowel pattern is nonobstructive. The Colon appears to be unremarkable. There are several fluid-filled loops of small bowel suggesting a mild enteritis. There has been appendectomy. There is there is a small residual appendiceal stump which shows no inflammatory change. Bladder is midline. There are small bilateral fat-containing inguinal hernias. IMPRESSION: 1. Mild small bowel enteritis versus nonobstructive ileus. 2. Otherwise negative study. ACT 112: Negative or not required by law. The above report was generated using voice recognition software. It may contain grammatical, syntax or spelling errors. Electronically signed by: Zain Andrea M.D. 11/18/2019 3:39 PM MDM Narrative Patient was seen and evaluated as above in room C 12. Review was performed of nursing notes and vital signs. I did review pertinent previous visits and patient history. After obtaining a thorough history and physical examination the above work up was performed. She presents to us today with lower abdominal discomfort. I reviewed her previous visit. I will note that the previous CT scan of the abdomen pelvis did comment on an appendix which is unusual given her history of appendectomy. I did call the radiologist and inquired about this and it was noted that there was an appendiceal stump which by definition was slightly enlarged given its diameter. With the patient's persistence of pain and worsening of discomfort it is felt that further evaluation and management would be warranted. IV access was established. Labs were drawn. There is mild leukocytosis 11.99 which is new compared to previous. No anemia. No emergent metabolic disturbance. Urinalysis does not suggest infection. There is 2+ bl ood but this does not appear to be a new finding in regard to blood in the urine. A repeat CT scan was discussed with the patient and through shared decision making at this time one was performed. She was educated upon benefit versus risks. There is a mild small bowel enteritis versus nonobstructive ileus noted on CT scan. With the patient not doing well at home with similar and now worsening symptoms I did attempt to manage her pain here with several analgesics without much success and in speaking with the patient she desired inpatient management which I believe is reasonable to further evaluate her presentation here today. Please refer to further documentation regarding her stay. While in the department, I personally reevaluated the patient several times. Case was discussed with the attending physician. In the evaluation and treatment of this patient the following differential diagnoses were entertained: Small bowel obstruction, colitis, ileus, enteritis, torsion, diverticulitis, among others. Impression & Plan Enteritis, Intractable abdominal pain Discharge Plan Visit Data *Final* Discharge Date/Time: 11/18/19 18:48 Chief Complaint: Abdominal Pain Stated Complaint: CYSTS ON OVARIES, PAIN ED Provider: Rohith Ortiz ED Midlevel Provider: Vlad Traore Discharge Problem: Enteritis, Intractable abdominal pain Patient Disposition: Admitted As Inpatient Condition: Good Discharge Instructions Interventions: ED Discharge Assessment Last Done: 11/18/19 18:48
[2019-11-18] MEDS ORDERED: IOVERSOL 100ml IV ONE (15:26)
--- NOTE | 2019-11-18 15:41 | CT Scan Report ---
CT abd pelvis IV con only CT DOSE: 622.33 mGy.cm HISTORY: Pain Persistent lower abdominal discomfort TECHNIQUE: Multiaxial CT images of the abdomen and pelvis were performed following the use of intrave nous contrast. A dose lowering technique was utilized adhering to the principles of ALARA. COMPARISON STUDY: 2019 FINDINGS: Lung bases are clear. Liver spleen and pancreas are unremarkable. Kidneys negative for hydronephrosis. Abdominal bowel pattern is nonobstructive. The Colon appears to be unremarkable. There are several fluid-filled loops of small bowel suggesting a mild enteritis. There has been appendectomy. There is there is a small residual appendiceal stump which shows no infl ammatory change. Bladder is midline. There are small bilateral fat-containing inguinal hernias. IMPRESSION: 1. Mild small bowel enteritis versus nonobstructive ileus. 2. Otherwise negative study. ACT 112: Negative or not required by law. The above report was generated using voice recognition software. It may contain grammatical, syntax or spelling errors. Electronically signed by: Zain Andrea M.D. 11/18/2019 3:39 PM
[2019-11-18] MEDS ORDERED: KETOROLAC TROMETHAMINE 15 MG/ML VIAL IV STA (15:52)
[2019-11-18] MEDS ORDERED: ACETAMINOPHEN 1,000 MG/100 ML VIAL IV STA (15:52)
[2019-11-18] MEDS ORDERED: HYDROmorphone INJ 0.5 MG/0.5 ML SYR IV STA (15:52)
[2019-11-18 16:00] LABS: Appearance Urine Clear (Clear); Bacteria Urine Automated Negative (Negative); Bilirubin Urine Negative (Negative); Blood Urine 2+ (Negative); Color Urine Dark Yellow; Epithelial Cell Urine Auto >30 /lpf (0-5); Glucose Urine UA Negative (Negative); Ketones Urine 2+ (Negative); Leukocyte Esterase Urine Trace (Negative); Nitrite Urine Negative (Negative); Protein Urine Negative (Negative); Specific Gravity Urine 1.019 (1.000-1.030); Urobilinogen Urine Negative (Negative)
[2019-11-18] MEDS ORDERED: SODIUM CHLORIDE 0.9% 1000ML 1,000 ML IV SCH (16:00)
--- NOTE | 2019-11-18 18:21 | History & Physical Report ---
Date of Service November 18, 2019 Assessment & Plan (1) Abdominal pain: Progressive persistent abdominal pain Review of previous CT A/P from 11/16/19 reported slight edematous change in wall of sigmoid colon raising possibility of a mild nonspecific sigmoid colitis Pelvis USS 11/16/19 showed 1cm left ovarian follicular cyst, no USS evidence of ovarian torsion CT A/P today report mild small bowel enteritis versus nonobstructive ileus. It also reports small residual appendiceal stump without inflammatory changes. Abdominal pain may be due enteritis No other urinary symptoms besides abd pain. UA showing trace leuk est, WBC 1-5 WBC is 11 Not tolerating po at home due to pain according to patient Will hold off antibiotics for now Get Urine culture IVF NSS Bowel rest if possible. May give liquid diet if tolerated Reported watery diarrhea was one episode and patient ascribed that to the col lacey. Will monitor if persistent, will send for C diff Antiemetic prn Pain control If pain persists, will need further imaging/evaluation DVT ppx - SCD Anxiety - Continue ativan prn. PDMP reviewed History of Present Illness 49 year old woman with no significant chronic medical problems who presented to ER for persistent worsening abdominal pain. Patient reported that about 2 weeks ago she started having lower abd pain, initially mostly on left side of abdomen. She saw her PCP and was treated for UTI with antibiotics and pyridium. She reported that pain never really subsided. She reported pain in mostly in lower abdomen, now more on right side, intermittent, crampy and sharp sometimes, not related to movement or eating, moderate to severe, not referred. She came to ER and was evaluated 2 days ago and was discharged with pain meds and some colace. She stated pain persisted, with nausea, very reduced appetite and has not been able to eat/drink as much. Denied any fevers, chills, vomiting Reported one watery nonbloody stool today which she ascribed to colace she took yesterday night Denied any dysuria, frequency, urgency or new incontinence. Reports occasional incontinence with laughter or cough since after her hysterectomy Denied any cough, chest pain, SOB, NORRIS, palpitations Denied any headache, dizziness, blurry vision Denied any hematochezia, melena, hematuria Primary Care Provider: Kandis Monroe MD Allergies Allergy/AdvReac Type Severity Reaction Status Date / Time oxycodone AdvReac Severe SHORTNESS Verified 11/18/19 16:05 OF BREATH Home Medications Home Medications Medication Instructions Recorded Confirmed Type lorazepam 0.5 mg PO BID PRN 02/13/18 11/18/19 History ibuprofen [Advil] 600 mg PO BID PRN 01/04/19 11/18/19 History docusate sodium [Colace] 100 mg PO BID #60 cap 11/16/19 11/18/19 Rx hydrocodone-acetaminophen [[place]] 1 tab PO Q6H PRN #14 tab 11/16/19 11/18/19 Rx sennosides [Senokot] 8.6 mg PO HS #30 tab 11/16/19 11/18/19 Rx Past Med/Surg History Social History Smoking Status: Never smoker Cigarettes Per Day: 1/2 pack per day; Second Hand Exposure: Yes ( smokes); Hx Alcohol Use: Yes Alcohol type: beer Hx Substance Use: No Preferred Language: Bhutanese Communication Ability: Effective Computer Security Coordinator Required: No Beliefs That Will Affect Care: None Current Living Situation: Spouse Feels Safe at Home: Yes Review of Systems Constitutional: + weakness and + anorexia; no fever and no chills Eyes: no problem reported Ear, Nose, Mouth, Throat: no problem reported Respiratory: no problem reported Cardiovascular: no chest pain, no dyspnea, no palpitations, no lightheadedness and no edema Gastrointestinal: + abdominal pain, + nausea, + cramping and + diarrhea/loose stools; no vomiting and no blood in stools Genitourinary: + urinary incontinence; no dysuria, no difficulty urinating, no urinary frequency and no urinary urgency Musculoskeletal: no problem reported Neurologic: no problem reported Psychiatric: + anxiety (Takes ativan prn for this) Physical Exam Constitutional: + ill appearing; no acute distress Eyes: PERRL, conjunctivae normal, anicteric sclerae ENMT: Dry oral mucosa Respiratory: normal respiratory effort, lungs clear to auscultation Cardiovascular: RRR, no murmur, no edema Gastrointestinal (Abdomen): Inspection/Auscultation: abdomen normal to inspection and normal bowel sounds; abdomen not distended Percussion/Palpation: + abdomen tender (RLQ and suprapubic region) and abdomen soft; no guarding and abdomen not rigid Musculoskeletal: no cyanosis or clubbing, extremities motor strength 5/5 Neurologic: PERRL, EOMI, accommodation nl, no face palsy, no dysarthria Psychiatric: Orientation: alert and oriented x 3 Affect: euthymic affect Results & Data Results & Data ([facility]) Vital Signs (Past 12 Hours) Vital Signs Temp Pulse Pulse Resp BP BP Pulse Ox 11/18/19 17:30 84 24 124/85 98 11/18/19 17:00 74 14 122/81 93 11/18/19 16:38 75 15 114/83 94 11/18/19 16:30 78 15 92 11/18/19 16:17 78 16 97 11/18/19 15:39 79 88 21 125/86 125/86 96 11/18/19 13:25 37.4 C 100 H 18 133/77 98 Laboratory Results Laboratory Results - last 24 hr 11/18/19 11/18/19 11/18/19 13:36 13:36 15:40 WBC 11.99 H RBC 4.73 Hgb 15.2 Hct 44.9 MCV 94.9 MCH 32.1 MCHC 33.9 RDW Std Deviation 44.5 RDW Coeff of [place] 12.8 Plt Count 396 MPV 9.1 Immature Gran % (Auto) 0.2 Neut % (Auto) 61.5 Lymph % (Auto) 31.8 [place] % (Auto) 5.8 Eos % (Auto) 0.4 Baso % (Auto) 0.3 Neut # (Auto) 7.37 H Lymph # (Auto) 3.81 H [place] # (Auto) 0.70 H Eos # (Auto) 0.05 Baso # (Auto) 0.04 Immature Gran # (Auto) 0.02 Sodium 138 Potassium 4.2 Chloride 108 H Carbon Dioxide 24 Anion Gap 6.0 BUN 10 Creatinine 0.92 Est Cr Clr Drug Dosing 75.0 Est GFR ( Amer) 85.3 Est GFR (Non-Af Amer) 73.6 BUN/Creatinine Ratio 10.6 Glucose 84 Calcium 9.2 Total Bilirubin 0.7 AST 12 L ALT 19 Alkaline Phosphatase 80 Total Protein 7.7 Albumin 4.2 Globulin 3.5 Albumin/Globulin Ratio 1.2 Lipase 260 Urine Color Dark Yellow Urine Appearance Clear Urine pH 6.0 Ur Specific [place] 1.019 Urine Protein Negative Urine Glucose (UA) Negative Urine Ketones 2+ H Urine Blood 2+ H Urine Nitrite Negative Urine Bilirubin Negative Urine Urobilinogen Negative Ur Leukocyte Esterase Trace H Urine WBC (Auto) 1-5 Urine RBC (Auto) 10-30 H U Hyaline Cast (Auto) 1-5 U Epithel Cells (Auto) >30 H Urine Bacteria (Auto) Negative Diagnostic Findings Pelvic USS 11/16/19 The uterus measured prior hysterectomy. The endometrial stripe measured not applicable. The right ovary measured surgically removed. The left ovary measured 3.4 cm maximum dimension with normal vascular flow. 1 cm follicular cyst. There is no ultrasonographic evidence of ovarian torsion. It should be noted that ovarian torsion can be present with normal Doppler ultrasonographic findings. There was no evidence of pathologic free pelvic fluid. CT Abd/Pelvis IMPRESSION: 1. Prior hysterectomy and right oophorectomy. 2. Normal left ovary. 3. 1 cm left ovarian follicular cyst. FINDINGS: Lung bases are clear. Liver spleen and pancreas are unremarkable. Kidneys negative for hydronephrosis. Abdominal bowel pattern is nonobstructive. The Colon appears to be unremarkable. There are several fluid-filled loops of small bowel suggesting a mild enteritis. There has been appendectomy. There is there is a small residual appendiceal stump which shows no inflammatory change. Bladder is midline. There are small bilateral fat-containing inguinal hernias. IMPRESSION: 1. Mild small bowel enteritis versus nonobstructive ileus. 2. Otherwise negative study. Code Status & VTE Plan VTE Prophylaxis Plan VTE Prophylaxis will be ordered: Yes (1) Abdominal pain Abdominal location: unspecified location Qualified Code(s): R10.9 - Unspecified abdominal pain
[2019-11-18] MEDS ORDERED: ONDANSETRON INJ 2 MG/ML 2 ML VIAL IV PRN (19:07)
[2019-11-18] MEDS ORDERED: LORazepam 0.5 MG TAB PO PRN (19:07)
[2019-11-18] MEDS: SODIUM CHLORIDE 0.9% 1000ML 1,000 ML IV SCH (19:27)
[2019-11-18] MEDS: ACETAMINOPHEN 325 MG TAB PO SCH (19:27)
[2019-11-18] MEDS: KETOROLAC TROMETHAMINE 15 MG/ML VIAL IM PRN (22:26)
[2019-11-19] MEDS: ACETAMINOPHEN 325 MG TAB PO SCH ×3 (01:12→13:13)
[2019-11-19] MEDS: SODIUM CHLORIDE 0.9% 1000ML 1,000 ML IV SCH ×2 (05:30→15:06)
[2019-11-19] MEDS: KETOROLAC TROMETHAMINE 15 MG/ML VIAL IM PRN (05:32)
[2019-11-19 06:36] LABS: Hematocrit (blood only) 41.6 % (37-47); Hemoglobin 13.8 g/dL (12.0-16.0); Mean Corpuscular Hemoglobin 31.7 pg (25-34); Mean Corpuscular Hgb Conc 33.2 g/dL (32-36); Mean Corpuscular Volume 95.4 fL (80-100); Mean Platelet Volume 9.2 fL (7.4-10.4); Platelet Count 347 K/uL (130-400); RDW Coefficient of Variation 12.7 % (11.5-14.5); RDW Standard Deviation 43.9 fL (36.4-46.3); Red Blood Count 4.36 M/uL (4.2-5.4); White Blood Count 8.06 K/uL (4.8-10.8)
[2019-11-19 07:11] LABS: BUN Creatinine Ratio 14.3 (10-20); Calcium 7.6 mg/dl (8.5-10.1); Creatinine Clr Calc Pharmacy 94.8 ml/min; Est GFR (African American) 114.8; Potassium 3.8 mmol/L (3.5-5.1)
--- NOTE | 2019-11-19 14:40 | Discharge Summary ---
Date of Service November 19, 2019 Admission HPI Per Admitting Provider 49 year old woman with no significant chronic medical problems who presented to ER for persistent worsening abdominal pain. Patient reported that about 2 weeks ago she started having lower abd pain, initially mostly on left side of abdomen. She saw her PCP and was treated for UTI with antibiotics and pyridium. She reported that pain never really subsided. She reported pain in mostly in lower abdomen, now more on right side, intermittent, crampy and sharp sometimes, not related to movement or eating, moderate to severe, not referred. She came to ER and was evaluated 2 days ago and was discharged with pain meds and some colace. She stated pain persisted, with nausea, very reduced appetite and has not been able to eat/drink as much. Denied any fevers, chills, vomiting Reported one watery nonbloody stool today which she ascribed to colace she took yesterday night Denied any dysuria, frequency, urgency or new incontinence. Reports occasional incontinence with laughter or cough since after her hysterectomy Denied any cough, chest pain, SOB, NORRIS, palpitations Denied any headache, dizziness, blurry vision Denied any hematochezia, melena, hematuria Admission Exam Per Admitting Provider onstitutional: + ill appearing; no acute distress Eyes: PERRL, conjunctivae normal, anicteric sclerae ENMT: Dry oral mucosa Respiratory: normal respiratory effort, lungs clear to auscultation Cardiovascular: RRR, no murmur, no edema Gastrointestinal (Abdomen): Inspection/Auscultation: abdomen normal to inspection and normal bowel sounds; abdomen not distended Percussion/Palpation: + abdomen tender (RLQ and suprapubic region) and abdomen soft; no guarding and abdomen not rigid Musculoskeletal: no cyanosis or clubbing, extremities motor strength 5/5 Neurologic: PERRL, EOMI, accommodation nl, no face palsy, no dysarthria Psychiatric: Orientation: alert and oriented x 3 Affect: euthymic affect Principal Diagnosis Abdominal pain Enteritis Discharge Exam Constitutional + ill appearing; no acute distress Eyes PERRL, conjunctivae normal, anicteric sclerae Respiratory normal respiratory effort, lungs clear to auscultation Cardiovascular RRR, no murmur, no edema Gastrointestinal (Abdomen) Inspection/Auscultation: abdomen normal to inspection and normal bowel sounds; abdomen not distended Percussion/Palpation: abdomen soft; abdomen nontender Musculoskeletal no cyanosis or clubbing, extremities motor strength 5/5 Neurologic PERRL, EOMI, accommodation nl, no face palsy, no dysarthria Psychiatric Orientation: alert and oriented x 3 Affect: euthymic affect Discharge Data Allergies Allergy/AdvReac Type Severity Reaction Status Date / Time oxycodone AdvReac Severe SHORTNESS Verified 11/18/19 16:05 OF BREATH Consultations 11/18/19 16:56 ED Decision to Admit Stat Ordered Studies 11/18/19 14:55 CT abd pelvis IV con only Stat Lung bases are clear. Liver spleen and pancreas are unremarkable. Kidneys negative for hydronephrosis. Abdominal bowel pattern is nonobstructive. The Colon appears to be unremarkable. There are several fluid-filled loops of small bowel suggesting a mild enteritis. There has been appendectomy. There is there is a small residual appendiceal stump which shows no inflammatory change. Bladder is midline. There are small bilateral fat-containing inguinal hernias. IMPRESSION: 1. Mild small bowel enteritis versus nonobstructive ileus. 2. Otherwise negative study. Hospital Course (1) Abdominal pain: Progressive persistent abdominal pain Review of previous CT A/P from 11/16/19 reported slight edematous change in wall of sigmoid colon raising possibility of a mild nonspecific sigmoid colitis Pelvis USS 11/16/19 showed 1cm left ovarian follicular cyst, no USS evidence of ovarian torsion CT A/P today report mild small bowel enteritis versus nonobstructive ileus. It also reports small residual appendiceal stump without inflammatory changes. Abdominal pain may be due to enteritis No other urinary symptoms besides abd pain. UA showing trace leuk est, WBC 1-5 WBC is 11. Was admitted overnight due to not tolerating po at home Was started on IVF and pain meds No antibiotics were given Urine culture negative so far Reported one episode of watery diarrhea and patient ascribed that to the colace. Bowel movement this AM was not watery, soft, non bloody This morning, patient reported abdominal pain is remarkably improved. Had mild nausea which had since resolved with antiemetic Tolerated breakfast and lunch very well and stated she wants to go home Patient stated she has some ibuprofen and still has hydrocodone from ER visit that she never used. Advised to use as needed for mild/moderate and severe pain respectively only for a short period. To call PCP or come to ER if pain worsens. She stated she will call her director vaccine for follow up for ovarian cyst Few doses of zofran prescribed for prn nausea Total Time Total Time Spent Total Time Spent (In Minutes): 35 Total Time Includes: Examination of the Patient, Discharge Planning and Medication Reconciliation Discharge Plan Discharge Items Patient Disposition: Home - Self-Care Reason For Visit: ABDOMINAL PAIN Discharge Diagnosis: Abdominal pain Enteritis Condition on Discharge: Good Non-emergency contact: Primary Care Provider Call non-emergency contact if: you have any medication questions Follow-up/Referrals: Kandis Slater MD [Primary Care Provider] - 11/22/19 10:40 am (11/22/2019 10:40 AM Provider Kb Odonnell MD Department Internal Medicine [facility] ) Diet: Regular Addtl Attending Provider Instructions: Ms Rehman. You came to the hospital complaining of worsening abdominal pain and not being able to tolerate food. You were evaluated with CT scan which showed mild enteritis. You were treated with medications and IV fluids. Your symptoms improved and you were able to start tolerating diet. You can use your ibuprofen for mild to moderate pain and hydrocodone for severe pain. These medications are not supposed to be used for a long time. If pain persist, please see your primary doctor or come to the hospital. Please follow up with your director vaccine and primary doctor as we discussed. It was a pleasure taking care of you. Pending Studies at Discharge: Yes Stand-Alone Forms: [facility] [employer], Smoking Cessation Medications and DC Order Prescriptions: New ondansetron HCl [Zofran] 4 mg tablet 4 mg PO Q8H PRN (Reason: nausea and vomiting) 2 Days Qty: 6 RF: 0 Continued lorazepam 0.5 mg tablet 0.5 mg PO BID PRN (Reason: Anxiety) RF: 0 ibuprofen [Advil] 200 mg Tablet 600 mg PO BID PRN (Reason: Pain) RF: 0 hydrocodone-acetaminophen [Accokeek] 5-325 mg tablet 1 tab PO Q6H PRN (Reason: pain) Qty: 14 RF: 0 docusate sodium [Colace] 100 mg capsule 100 mg PO BID Qty: 60 RF: 0 Discontinued sennosides [Senokot] 8.6 mg tablet 8.6 mg PO HS Qty: 30 RF: 0 Discharge Orders: Discharge Order (Routine); Ordered 11/19/19 Ordered By: Tika Everett Admission Data Admit Date/Time: 11/18/19 17:58 Attending Provider: Tika Everett I. Admit Provider: Tika Everett I. Primary Care Provider: Kandis Slater Other Providers: Tika Everett I. Other Interventions: Discharge Summary Assessment (RN) Last Done: 11/19/19 15:44 DC Date/Time DO NOT enter until pt leaves facility: 11/19/19 16:31
[2019-11-19 15:16] VITALS: BP 127/84; PULSE 73; TEMP 98.6; O2SAT 97
== END 2019-11-19 16:31 | disposition home or self-care (01) ==
LOC: ED 12:51 → 2W 12:51

== ENCOUNTER 2020-08-17 06:14 | Inpatient (IN) ==
--- NOTE | 2020-07-30 13:01 | PAT Medication Instructions ---
Medication Instructions Date of Service July 30, 2020 Home Medications lorazepam 0.5 mg PO DAILY PRN ibuprofen-diphenhydramine HCl [Ibuprofen PM] 1 cap PO HS ASK your surgeon for instructions ibuprofen-diphenhydramine HCl [Ibuprofen PM] 1 cap PO HS Take morning of surgery With a small sip of water, OTHERWISE NOTHING TO EAT OR DRINK AFTER MIDNIGHT: lorazepam 0.5 mg PO DAILY PRN (if needed) Other Notes If you have any questions please call us at [phone] or [phone] or [phone] or [phone]
--- NOTE | 2020-08-03 11:23 | Anesthesiology Consultation ---
Date of Service August 03, 2020 Assessment & Plan (1) Encounter for pre-operative examination: COVID Status: As of 08/03 assessment, patient denies travel to endemic area, known exposure/sick contacts, or symptoms of COVID19. Patient instructed that they and their household members must follow strict social distancing guidelines, wear a mask in public and avoid travel/events/gatherings for 14 days prior to surgery. Preoperative COVID19 testing to be completed prior to surgery per surgeon's arrangements (5/3 per pt). Patient made aware to self-isolate as much as possible between COVID testing and surgery. Pt will have to work after her COVID test but only works with two other people and they wear masks the whole time. Chart Review Chart Review: Acceptable Risk for Surgery and Patient seen in Pre Admission Test ing Teaching & Discussion Instructed NPO after midnight before surgery, except medications with 15 cc of water. Medication instructions provided according to the PAT guidelines. History Surgery Operation Date: 08/17/20 07:45 Proposed Procedures p C6-C6 Posterior Cervical Decompression Fusion, Spinal Cord Monitoring - Taiwo Stewart DO Height/Weight Height: 5 ft 2.5 in Weight: 84.4 kg Allergies Allergy/AdvReac Type Severity Reaction Status Date / Time oxycodone Allergy Severe Shortness Verified 07/14/20 12:03 of Breath Medications Home Medications Medication Instructions Recorded Confirmed Last Taken lorazepam 0.5 mg PO DAILY PRN 02/13/18 07/14/20 12/21/19 22:00 ibuprofen-diphenhydramine HCl 1 cap PO HS 07/14/20 07/14/20 Unknown [Ibuprofen PM] Past Medical History Medical History Anxiety Atypical chest pain 05/2018 S/P UNREMARKABLE EKG/NEGATIVE TROPONINS- MUSCULAR ETIOLOGY SUSPECTED; NO FURTHER EPISODES SINCE LIDOCAINE PATCH X 1 Degenerative disc disease History of ovarian cyst left side Kidney stones Obesity Osteoarthritis Exercise / Class Metabolic Activity II 4-5 Yardwork/Stairs/Walk up hill Past Surgical History Surgical History History of bunionectomy LT History of carpal tunnel release RT History of elbow surgery RT History of mandibular surgery repair of fracture R/T INJURY AT AGE 20 - NO ROM ISSUES History of neck surgery JUNE 2018 > FUSION C6-7> ROM IS WNL History of oophorectomy, unilateral History of partial hysterectomy History of repair of rotator cuff RT X 2 History of tooth extraction Past Anesthesia History No Hx of Anesthesia Complications and No Family Hx of Anesthesia Complications History of PONV No Hx of PONV and Hx of Motion Sickness Social History Smoking Status: Current every day smoker tobacco type: cigarettes Smoking cigarettes per day: 5-6 Do You Dip or Chew Tobacco: No Hx Alcohol Use: Yes Alcohol type: beer alcohol intake frequency: a few times a month Hx Substance Use: No substance use type: does not use Review of Systems Pt denies any recent chest pain, shortness of breath, palpitations, cough, fever, URI, or uncontrolled acid reflux. Physical Exam Vital Signs BP: 121/81 P: 79bpm SPO2: 100% RA T: 97.9 F R: 16 ENMT Mouth: + dental restorations (three crowns in front) and + chipped teeth (upper R incisor); no loose teeth Thyromental Distance: < 3.5 Finger Breadths (3) Mallampati Class: I Tonsillar hypertrophy B/L Neck normal visual inspection; neck extension not limited Respiratory normal respiratory effort, lungs clear to auscultation Cardiovascular RRR, no murmur, no edema Vessels: no carotid bruit Testing Laboratory Results 08/03/20 11:35 08/03/20 11:35 PT 10.3 Seconds (9.0-12.0) 08/03/20 11:35 INR 1.0 (0.9-1.1) 08/03/20 11:35 APTT 26.4 Seconds (21.0-31.0) 08/03/20 11:35 Urine Color Yellow 08/03/20 11:35 Urine Appearance Clear (Clear) 08/03/20 11:35 Urine pH 6.0 (4.5-7.5) 08/03/20 11:35 Ur Specific Benge 1.022 (1.000-1.030) 08/03/20 11:35 Urine Protein Negative (Negative) 08/03/20 11:35 Urine Glucose (UA) Negative (Negative) 08/03/20 11:35 Urine Ketones Negative (Negative) 08/03/20 11:35 Urine Nitrite Negative (Negative) 08/03/20 11:35 Ur Leukocyte Esterase Negative (Negative) 08/03/20 11:35 Urine WBC (Auto) 1-5 /hpf (0-5) 08/03/20 11:35 Urine RBC (Auto) 5-10 /hpf (0-4) H 08/03/20 11:35 U Hyaline Cast (Auto) 0 /lpf (0-5) 08/03/20 11:35 U Epithel Cells (Auto) >30 /lpf (0-5) H 08/03/20 11:35 Urine Bacteria (Auto) Negative (Negative) 08/03/20 11:35 Blood Type O Positive 08/03/20 11:35 Antibody Screen NEGATIVE 08/03/20 11:35 Electrocardiogram Date: 08/03/20 Findings: + NSR @ (77bpm) Chest X-Ray Date: 08/03/20 Findings: + NAD
--- NOTE | 2020-08-03 12:02 | XRay Report ---
XR chest Pre-admission PA/Lat HISTORY: Neck pain. Preop. COMPARISON: Chest 06/06/2018. FINDINGS: The lungs are clear. Cardiac silhouette is normal in size. No pleural effusions. No pneumot horax. Cervical spinal fusion hardware is noted. IMPRESSION: No acute process. ACT 112: Negative or not required by law. Electronically signed by: Arturo Hoskins M.D. 08/03/2020 12:01 PM
[2020-08-03 12:09] LABS: Basophils # (auto) 0.03 K/uL (0-0.2); Basophils % (auto) 0.4 %; Eosinophils # (auto) 0.05 K/uL (0-0.5); Eosinophils % (auto) 0.6 %; Hematocrit (blood only) 42.8 % (37-47); Hemoglobin 14.3 g/dL (12.0-16.0); Immature Granulocytes # (auto) 0.02 K/uL (0.00-0.02); Immature Granulocytes % (auto) 0.2 %; Lymphocytes # (auto) 3.29 K/uL (1.2-3.4); Mean Corpuscular Hemoglobin 31.8 pg (25-34); Mean Corpuscular Hgb Conc 33.4 g/dL (32-36); Mean Corpuscular Volume 95.1 fL (80-100); Mean Platelet Volume 9.6 fL (7.4-10.4); Monocytes # (auto) 0.56 K/uL (0.11-0.59); Neutrophils # (auto) 4.08 K/uL (1.4-6.5); Neutrophils % (auto) 50.8 %; Platelet Count 373 K/uL (130-400); RDW Coefficient of Variation 12.8 % (11.5-14.5); RDW Standard Deviation 44.6 fL (36.4-46.3); White Blood Count 8.03 K/uL (4.8-10.8)
[2020-08-03 12:14] LABS: Appearance Urine Clear (Clear); Bacteria Urine Automated Negative (Negative); Bilirubin Urine Negative (Negative); Blood Urine 2+ (Negative); Cast Urine Automated 0 /lpf (0-5); Color Urine Yellow; Epithelial Cell Urine Auto >30 /lpf (0-5); Glucose Urine UA Negative (Negative); Ketones Urine Negative (Negative); Leukocyte Esterase Urine Negative (Negative); Nitrite Urine Negative (Negative); Protein Urine Negative (Negative); Specific Gravity Urine 1.022 (1.000-1.030); Urobilinogen Urine Negative (Negative)
[2020-08-03 12:17] LABS: BUN Creatinine Ratio 20.6 (10-20); Calcium 8.9 mg/dl (8.5-10.1); Creatinine Clr Calc Pharmacy 93.7 ml/min; Est GFR (African American) 110.3; Est GFR (Non-African American) 95.1; Potassium 4.2 mmol/L (3.5-5.1)
[2020-08-03 12:19] LABS: Partial Thromboplastin Time 26.4 Seconds (21.0-31.0); Prothrombin Time 10.3 Seconds (9.0-12.0)
--- NOTE | 2020-08-03 14:50 | Electrocardiogram Report ---
Test Reason : Blood Pressure : / mmHG Vent. Rate : 077 BPM Atrial Rate : 077 BPM P-R Int : 164 ms QRS Dur : 080 ms QT Int : 360 ms P-R-T Axes : 053 065 057 degrees QTc Int : 407 ms Normal sinus rhythm Normal ECG When compared with ECG of 06-JUN-2018 16:59, No significant change was found Confirmed by Mani Ubran ([id number]) on 08/03/2020 2:50:05 PM Referred By: Taiwo Stewart Confirmed By:Mani Urban
[~2020-08-17 06:14] MED LIST changes: +ACETAMINOPHEN 500 MG TAB PO SCH; -AMOX500C3 PO; +CeleBREX 200 MG CAP PO SCH; +GABAPENTIN 900 MG DOSE PO SCH; -IBUP-103 PO; -LORA-741 PO; +LR 15ML/HR IV SCH; +ceFAZolin 2000MG 2,000 MG/15 ML SYR IV SCH
[2020-08-17] MEDS ORDERED: MIDAZOLAM HCL 1 MG/ML 2ML VIAL ONE (07:00)
[2020-08-17] MEDS ORDERED: fentaNYL citrate 100 MCG/2 ML VIAL ONE ×4 (07:00→09:40)
[2020-08-17] MEDS ORDERED: PROPOFOL IV EMULSION 10 MG/ML 100 ML VIAL IV ONE (07:09)
[2020-08-17] MEDS ORDERED: BACITRACIN OINT 15 GM TUBE ONE (07:11)
--- NOTE | 2020-08-17 07:38 | History & Physical Bridge Note ---
Date of Service August 17, 2020 History & Physical Bridge Note I have examined the patient, reviewed the History & Physical and in the interval since the performance of the History & Physical I have noted the following changes of clinical significance: no changes noted
--- NOTE | 2020-08-17 07:44 | History & Physical Report ---
Date of Service August 17, 2020 Assessment & Plan (1) Cervical stenosis of spinal canal: Admission and Anticipated Discharge Date Admission Date: C6-C7 posterior decompression fusion History of Present Illness Chief Complaint: Chronic persistent neck and arm pain Primary Care Provider: Kandis Monroe MD This is a 50-year-old female who presents with chronic persistent neck and arm symptoms after failing course of nonoperative care she is here for surgical intervention. Allergies Allergy/AdvReac Type Severity Reaction Status Date / Time oxycodone Allergy Severe Shortness Verified 08/17/20 06:31 of Breath Home Medications Medication Instructions Recorded Confirmed Type lorazepam 0.5 mg PO DAILY PRN 02/13/18 08/17/20 History ibuprofen-diphenhydramine HCl 1 cap PO HS 07/14/20 08/17/20 History [Ibuprofen PM] Past Med/Surg History Medical History Anxiety Atypical chest pain 05/2018 S/P UNREMARKABLE EKG/NEGATIVE TROPONINS- MUSCULAR ETIOLOGY SUSPECTED; NO FURTHER EPISODES SINCE LIDOCAINE PATCH X 1 Degenerative disc disease History of ovarian cyst left side Kidney stones Obesity Osteoarthritis Surgical History History of bunionectomy LT History of carpal tunnel release RT History of elbow surgery RT History of mandibular surgery repair of fracture R/T INJURY AT AGE 20 - NO ROM ISSUES History of neck surgery JUNE 2018 > FUSION C6-7> ROM IS WNL History of oophorectomy, unilateral History of partial hysterectomy History of repair of rotator cuff RT X 2 History of tooth extraction Social History (Updated 01/06/20 @ 11:22 by Dina Godwin) Smoking Status: Current every day smoker packs per day: 0.5; Cigarettes Per Day: 5-6; Second Hand Exposure: No; Do You Dip or Chew Tobacco: No; Tobacco Cessation Education Requested by Patient: No Hx Alcohol Use: Yes Alcohol type: beer Hx Substance Use: No Preferred Language: Monegasque Communication Ability: Effective Occupational Health Rn Required: No Beliefs That Will Affect Care: None Current Living Situation: Spouse Other Information That Helps Us Care for You: No Feels Safe at Home: Yes Safety Concerns: Feels Safe At This Time Assistive Devices: Glasses Physical Exam Physical Exam: Patient is alert and oriented Heart regular in rhythm Lungs clear to auscultation Results & Data ([facility]) Vital Signs (Past 12 Hours) Vital Signs Temp Pulse Resp BP Pulse Ox 08/17/20 06:37 37.1 C 89 16 130/85 98
[2020-08-17] MEDS ORDERED: BUPIVACAINE/EPINEPHRINE 0.5% MPF 1:200,000 30 ML VIAL ONE (07:53)
[2020-08-17] MEDS ORDERED: ATROPINE SULFATE 0.1 MG/ML 10ML SYR IV PRN (08:29)
[2020-08-17] MEDS ORDERED: LABETALOL HCL IV 5 MG/ML 20ML IV PRN (08:29)
[2020-08-17] MEDS ORDERED: ePHEDrine sulfate 50 MG/ML AMP IV PRN (08:29)
[2020-08-17] MEDS ORDERED: PROMETHAZINE HCL 12.5 MG in SODIUM CHLORIDE 0.9% 50 ML IV PRN ×2 (08:29→11:01)
[2020-08-17] MEDS ORDERED: ONDANSETRON INJ 2 MG/ML 2 ML VIAL IV PRN (08:29)
[2020-08-17] MEDS ORDERED: NALOXONE HCL 0.4 MG/1 ML VIAL/CARP IV PRN ×2 (08:29→11:01)
[2020-08-17] MEDS ORDERED: FLUMAZENIL 0.1 MG/1 ML 10 ML VIAL IV PRN (08:29)
[2020-08-17] MEDS ORDERED: ROCURONIUM BROMIDE 10 MG/ML 5 ML VIAL IV ONE (08:33)
[2020-08-17] MEDS ORDERED: PROPOFOL IV EMULSION 10 MG/ML 20 ML VIAL IV ONE (08:33)
[2020-08-17] MEDS ORDERED: DEXAMETHASONE SOD INJ 4 MG/ML VIAL ONE (08:33)
[2020-08-17] MEDS ORDERED: SUCCINYLCHOLINE 100MG/5ML SYR IV ONE (08:33)
[2020-08-17] MEDS ORDERED: LIDOCAINE HCL 2% 2 ML VIAL/AMP(20MG/ML) INFIL ONE (08:33)
[2020-08-17] MEDS ORDERED: ONDANSETRON INJ 2 MG/ML 2 ML VIAL ONE (08:33)
[2020-08-17] MEDS ORDERED: ePHEDrine sulfate 50 MG/ML SYR ONE (08:51)
[2020-08-17] MEDS ORDERED: PHENYLEPHRINE 100MCG/ML 5ML SYR ONE (08:51)
[2020-08-17] MEDS ORDERED: PHENYLEPHRINE HCL 10 MG/ML VIAL ONE (08:51)
[2020-08-17] MEDS ORDERED: FLOSEAL HEMOSTATIC MATRIX 10ML TOP ONE (09:18)
--- NOTE | 2020-08-17 09:30 | Operative Report ---
Post Operative Report Pre & Post Diagnosis Operation Date: 08/17/20 07:45 Pre-Op Diagnosis: Spinal Stenosis, Cervical Region Post-Op Diagnosis: Spinal Stenosis, Cervical Region I identified the patient and participated in the time-out.: Yes Procedure Operation Date: 08/17/20 07:45 Actual Procedures #1 posterior cervical decompression with foraminotomies C6-C7. #2 posterior cervical fusion C6-C7. #3 placement posterior cervical instrumentation using globus rods and screws C6-C7. #4 placement of infuse collagen sponge combined with master graft at C6-C7. Surgeon Taiwo Stewart, DO Custom Feed Corn Operator Halie Morin Estimated Blood Loss 25 Findings See Below The patient is 5 foot 2 inches tall weighing over 83 kg with a BMI in excess of 33. Patient's body habitus did contribute to significant technical difficulty with positioning and exposure. This had at least 50% increase to the operative time. Specimens None Indications This is a 50-year-old female known to me presents with chronic persistent neck and arm symptoms after failing course of nonoperative care she is here for surgical invention. Description of Procedure Patient was met with identified informed consent obtained. Patient was then taken to the operative suite underwent ablation placed in a prone position with chest padded and Foley headlight assembler on the Lalito table. The posterior cervical spine was then prepped and draped in normal sterile fashion. With assistance of fluoroscopy identified the C6-C7 level. Sharp dissection with the assistance of Bovie cautery was performed down to and exposing the C6-C7 lamina and lateral masses. I then performed a decompression of the left lamina and and foraminotomies at C6-7. Lateral mass screws were then placed in C6-C7 bilaterally with the assistance of fluoroscopy and the proper sized sujey locked in position. Then burred to the remaining lateral mass and lamina to subcortical bleeding bone and infuse collagen sponge and master graft was placed. 10 round ROSALBA drain inserted. Incision was then closed with 1 Vicryl fascia 2-0 Vicryl subcutaneously and 4 Monocryl for final skin closure. Steri- Strip sterile dressing placed. Patient awakened taken to PACU stable condition. Please note spinal cord monitoring was utilized that the procedure no changes noted. Lastly Halie Morin was present at the entire surgery involved the patient positioning complex portions of the surgery and final skin closure. I attest to the content of the Intraoperative Record and any orders documented therein. Any exceptions are noted below.
--- NOTE | 2020-08-17 09:53 | Fluoroscopy Report ---
FL cervical 2-3V CLINICAL HISTORY: C6-C7 PCDF COMPARISON STUDY: June 2018 FLUOROSCOPY TIME: 38 seconds. NUMBER OF FLUOROSCOPIC IMAGES: 2 FINDINGS: There is evidence of a prior anterior cervical discectomy and fusion at the C5-C6 level. Th ere is now evidence for a posterior spinal fusion. The exact the level of the surgery is difficult to ascertain on these intraoperative fluoroscopic spot films. IMPRESSION: Interval posterior spinal fusion. The exact level is difficult to ascertain on the provi ded images. ACT 112: Negative or not required by law. Electronically signed by: Shreyas Clinton M.D. 08/17/2020 9:51 AM
[2020-08-17] MEDS: fentaNYL citrate 100 MCG/2 ML VIAL IV PRN ×4 (10:05→10:20)
[2020-08-17] MEDS ORDERED: HYDROmorphone INJ 0.5 MG/0.5 ML SYR IV PRN ×2 (10:26→11:01)
[2020-08-17] MEDS ORDERED: HYDROmorphone INJ 1 MG/ML SYRINGE ONE (10:27)
[2020-08-17] MEDS ORDERED: GLYCOPYRROLATE 0.2 MG/ML VIAL ONE (10:41)
[2020-08-17] MEDS ORDERED: NEOSTIGMINE METHYLSULFATE 1 MG/ML 10ML VIAL ONE (10:41)
[2020-08-17] MEDS ORDERED: METOCLOPRAMIDE HCL INJ 5 MG/ML 2 ML VIAL IV PRN (11:01)
[2020-08-17] MEDS ORDERED: hydrOXYzine HCl 25 MG TAB PO PRN (11:01)
[2020-08-17] MEDS ORDERED: LORazepam 0.5 MG TAB PO PRN (11:01)
[2020-08-17] MEDS ORDERED: ONDANSETRON 4 MG OD TAB PO PRN (11:01)
[2020-08-17] MEDS ORDERED: FAMOTIDINE 20 MG TAB PO PRN (11:01)
[2020-08-17] MEDS ORDERED: DO NOT ADMINISTER FLU VACCINE PRN (11:01)
[2020-08-17] MEDS ORDERED: LORazepam 0.5 MG/1 ML VIAL IV PRN (11:01)
[2020-08-17] MEDS ORDERED: ALUMINUM/MAGNESIUM SUSP 30 ML UDC PO PRN (11:01)
[2020-08-17] MEDS ORDERED: RACEPINEPHRINE 2.25% NEBU SOLN 0.5 ML VIAL INH PRN (11:01)
[2020-08-17] MEDS ORDERED: DO NOT ADMINISTER PNEUMOCOCCAL VACCINE PRN (11:01)
[2020-08-17] MEDS ORDERED: dexAMETHasone 8 MG in SYRINGE 0 ML IV PRN (11:01)
[2020-08-17] MEDS ORDERED: SOD PHOSPHATE/SOD BIPHOSPHATE ENEMA 132 ML BTL PR PRN (11:01)
[2020-08-17] MEDS ORDERED: ACETAMINOPHEN 500 MG TAB PO PRN (11:01)
[2020-08-17] MEDS ORDERED: HYDROmorphone INJ 1 MG/ML SYRINGE IV PRN (11:01)
[2020-08-17] MEDS ORDERED: MAGNESIUM HYDROXIDE SUSP 30 ML UDC PO PRN (11:01)
[2020-08-17] MEDS ORDERED: ACETAMINOPHEN 1,000 MG/100 ML VIAL IV PRN (11:01)
--- NOTE | 2020-08-17 11:03 | Anesthesiology Progress Note ---
Date of Service August 17, 2020 Anesthesia Post Procedure Vital Signs Vital Signs: Temp Pulse Pulse Resp BP BP Pulse Ox 08/17/20 10:45 36.4 C L 74 16 122/78 99 08/17/20 10:35 78 16 136/83 98 08/17/20 10:25 89 16 132/85 99 08/17/20 10:15 76 16 142/93 H 99 08/17/20 10:05 83 16 132/94 99 08/17/20 09:55 77 16 129/83 99 08/17/20 09:48 36.0 C L 101 H 16 132/90 99 08/17/20 06:37 37.1 C 89 16 130/85 98 Pain Intensity Left Neck: Pain Intensity: 6 Transfer of Care Handoff Completed per policy Notes Mental Status: alert / awake / arousable Patient Amnestic to Procedure: Yes Nausea / Vomiting: adequately controlled Pain: adequately controlled Airway Patency, RR, SpO2: stable & adequate BP & HR: stable & adequate Hydration State: stable & adequate Neuraxial Anesthesia: was administered and sensory block is resolving Anesthetic Complications: no major complications apparent
[2020-08-17] MEDS: KETOROLAC TROMETHAMINE 15 MG/ML VIAL IV SCH ×3 (13:01→22:24)
[2020-08-17] MEDS: LACTATED RINGER'S 1,000 ML IV SCH ×2 (13:02→22:24)
[2020-08-17] MEDS: HYDROCODONE/ACETAMOPHEN 5/325MG TAB PO PRN (14:11)
[2020-08-17] MEDS: ceFAZolin 2000MG 2,000 MG/15 ML SYR IV SCH (16:40)
[2020-08-17] MEDS: ONDANSETRON INJ 2 MG/ML 2 ML VIAL IV PRN (18:01)
[2020-08-17] MEDS ORDERED: dexAMETHasone 8 MG in SYRINGE 0 ML IV ONE (20:45)
[2020-08-17] MEDS: diphenhydrAMINE Capsule 25 MG CAP PO PRN (20:49)
[2020-08-17] MEDS: DOCUSATE SODIUM/SENNA 50/8.6MG TAB PO SCH (22:19)
--- NOTE | 2020-08-17 22:55 | Hospitalist Consultation ---
Date of Consultation August 17, 2020 Assessment & Plan (1) Cervical stenosis of spinal canal: Final Assessment and Recommendations as follows : Recurrent right upper eyelid swelling Possible blepharochalasis Currently resolved after intervention ordered by patient surgeon cervical spinal stenosis status post surgery, patient comfortable ongoing tobacco abuse. Ophthalmology referral if with recurrence Nicotine patch as needed DVT prophylaxis. SCDs as per postop orthopedic orders. Thank you very much for this consultation. Dr. Blount will follow patient's progress. Text document was generated using [employer] voice recognition software. It may contain grammatical or spelling errors. Kindly contact undersigned for clarification of any documentation item in question. History of Present Illness Reason for Consultation: Right upper eyelid swelling Requesting Physician: Dr. Stewart Attending Physician: Taiwo Stewart, History of Present Illness PCP : Dr. Monroe History obtained from patient and records. Medical history significant for cervical spinal stenosis status post surgery, anxiety, ongoing tobacco abuse. Last confinement November 2019 for abdominal pain/enteritis. Patient underwent elective decompression neck surgery today. Postop patient noted distressing right upper eyelid swelling with transient blurred vision. No headache, no pruritus. No pain. Intermittent episodes (about 5 in the last year as per patient) with unclear precipitant. First episode improved with antibiotic and warm compress regimen -possible external hordeolum as per outpatient PCP note last August 2019. Patient referred to an casino cage cashier who could not provide explanation for swelling as per patient account Patient given Decadron and Diphenhydramine as ordered by patient surgeon. Right upper lid swelling currently resolved as per patient. Medical History as above Surgical History : Neck surgery, partial hysterectomy Family History : Hypertension Personal/Social history : 5 cigarettes a day, no EtOH intake, community case manager Allergies Allergy/AdvReac Type Severity Reaction Status Date / Time oxycodone Allergy Severe Shortness Verified 08/17/20 06:31 of Breath Home Medications Medication Instructions Recorded Confirmed Type lorazepam 0.5 mg PO DAILY PRN 02/13/18 08/17/20 History ibuprofen-diphenhydramine HCl 1 cap PO HS 07/14/20 08/17/20 History [Ibuprofen PM] hydrocodone-acetaminophen See Rx Instructions .ROUTE 08/17/20 Rx .COMPLEX PRN #30 tab Patient History Medical History Anxiety Atypical chest pain 05/2018 S/P UNREMARKABLE EKG/NEGATIVE TROPONINS- MUSCULAR ETIOLOGY SUSPECTED; NO FURTHER EPISODES SINCE LIDOCAINE PATCH X 1 Degenerative disc disease History of ovarian cyst left side Kidney stones Obesity Osteoarthritis Surgical History History of bunionectomy LT History of carpal tunnel release RT History of elbow surgery RT History of mandibular surgery repair of fracture R/T INJURY AT AGE 20 - NO ROM ISSUES History of neck surgery JUNE 2018 > FUSION C6-7> ROM IS WNL History of oophorectomy, unilateral History of partial hysterectomy History of repair of rotator cuff RT X 2 History of tooth extraction Social History (Updated 01/06/20 @ 11:22 by Dina Godwin) Smoking Status: Current every day smoker packs per day: 0.5; Cigarettes Per Day: 5-6; Second Hand Exposure: No; Do You Dip or Chew Tobacco: No; Tobacco Cessation Education Requested by Patient: No Hx Alcohol Use: Yes Alcohol type: beer Hx Substance Use: No Preferred Language: Hungarian Communication Ability: Effective Leakage Tester Required: No Beliefs That Will Affect Care: None marital status: Current Living Situation: Spouse Other Information That Helps Us Care for You: No Feels Safe at Home: Yes Safety Concerns: Feels Safe At This Time Assistive Devices: None Review of Systems Review of Systems: As per HPI, all 10 systems reviewed, all other ROS negative Physical Exam Physical Exam: GENERAL: Comfortable, pleasant, obese, no respiratory distress SKIN: Normal color, warm HEENT: Minimal swelling right upper eyelid, pink palpebral conjunctivae, no EOM entrapment, dry buccal mucosa NECK : Plastic cervical collar in place CHEST : CTA, no tenderness HEART : RRR, no obvious murmurs ABDOMEN: Some distention, nontender EXTREMITIES : No LE swelling/tenderness, no other conspicuous deformities noted NEUROLOGIC : Coherent, no facial asymmetry, no other gross focality Results & Data Results & Data ([facility]) Vital Signs (Past 12 Hours) Vital Signs Temp Pulse Pulse Resp BP Pulse Ox 08/17/20 22:16 36.8 C 93 H 18 134/88 97 08/17/20 22:12 91 H 18 95 08/17/20 19:51 36.8 C 93 H 16 119/80 94 08/17/20 19:00 107 H 18 94 08/17/20 18:07 36.9 C 98 H 16 123/80 94 08/17/20 15:11 82 18 94 08/17/20 14:05 36.4 C L 98 H 16 114/77 08/17/20 13:00 36.6 C 77 18 135/83 100 08/17/20 12:04 36.3 C L 91 H 16 122/81 100 08/17/20 11:30 36.3 C L 77 16 119/79 98 08/17/20 11:05 36.3 C L 79 16 124/81 98 08/17/20 11:01 69 18 100 Laboratory Results Laboratory Results WBC 8.03 K/uL (4.8-10.8) 08/03/20 11:35 RBC 4.50 M/uL (4.2-5.4) 08/03/20 11:35 Hgb 14.3 g/dL (12.0-16.0) 08/03/20 11:35 Hct 42.8 % (37-47) 08/03/20 11:35 MCV 95.1 fL (80-100) 08/03/20 11:35 MCH 31.8 pg (25-34) 08/03/20 11:35 MCHC 33.4 g/dL (32-36) 08/03/20 11:35 RDW Std Deviation 44.6 fL (36.4-46.3) 08/03/20 11:35 RDW Coeff of [place] 12.8 % (11.5-14.5) 08/03/20 11:35 Plt Count 373 K/uL (130-400) 08/03/20 11:35 MPV 9.6 fL (7.4-10.4) 08/03/20 11:35 Immature Gran % (Auto) 0.2 % 08/03/20 11:35 Neut % (Auto) 50.8 % 08/03/20 11:35 Lymph % (Auto) 41.0 % 08/03/20 11:35 [place] % (Auto) 7.0 % 08/03/20 11:35 Eos % (Auto) 0.6 % 08/03/20 11:35 Baso % (Auto) 0.4 % 08/03/20 11:35 Neut # (Auto) 4.08 K/uL (1.4-6.5) 08/03/20 11:35 Lymph # (Auto) 3.29 K/uL (1.2-3.4) 08/03/20 11:35 [place] # (Auto) 0.56 K/uL (0.11-0.59) 08/03/20 11:35 Eos # (Auto) 0.05 K/uL (0-0.5) 08/03/20 11:35 Baso # (Auto) 0.03 K/uL (0-0.2) 08/03/20 11:35 Immature Gran # (Auto) 0.02 K/uL (0.00-0.02) 08/03/20 11:35 PT 10.3 Seconds (9.0-12.0) 08/03/20 11:35 INR 1.0 (0.9-1.1) 08/03/20 11:35 APTT 26.4 Seconds (21.0-31.0) 08/03/20 11:35 PTT Ratio 1.0 08/03/20 11:35 Sodium 141 mmol/L (136-145) 08/03/20 11:35 Potassium 4.2 mmol/L (3.5-5.1) 08/03/20 11:35 Chloride 109 mmol/L (98-107) H 08/03/20 11:35 Carbon Dioxide 28 mmol/L (21-32) 08/03/20 11:35 Anion Gap 4.0 (3-11) 08/03/20 11:35 BUN 15 mg/dl (7-18) 08/03/20 11:35 Creatinine 0.74 mg/dl (0.6-1.2) 08/03/20 11:35 Est Cr Clr Drug Dosing 93.7 ml/min 08/03/20 11:35 Est GFR ( Amer) 110.3 08/03/20 11:35 Est GFR (Non-Af Amer) 95.1 08/03/20 11:35 BUN/Creatinine Ratio 20.6 (10-20) H 08/03/20 11:35 Glucose 80 mg/dl (70-99) 08/03/20 11:35 Calcium 8.9 mg/dl (8.5-10.1) 08/03/20 11:35 Urine Color Yellow 08/03/20 11:35 Urine Appearance Clear (Clear) 08/03/20 11:35 Urine pH 6.0 (4.5-7.5) 08/03/20 11:35 Ur Specific [place] 1.022 (1.000-1.030) 08/03/20 11:35 Urine Protein Negative (Negative) 08/03/20 11:35 Urine Glucose (UA) Negative (Negative) 08/03/20 11:35 Urine Ketones Negative (Negative) 08/03/20 11:35 Urine Blood 2+ (Negative) H 08/03/20 11:35 Urine Nitrite Negative (Negative) 08/03/20 11:35 Urine Bilirubin Negative (Negative) 08/03/20 11:35 Urine Urobilinogen Negative (Negative) 08/03/20 11:35 Ur Leukocyte Esterase Negative (Negative) 08/03/20 11:35 Urine WBC (Auto) 1-5 /hpf (0-5) 08/03/20 11:35 Urine RBC (Auto) 5-10 /hpf (0-4) H 08/03/20 11:35 U Hyaline Cast (Auto) 0 /lpf (0-5) 08/03/20 11:35 U Epithel Cells (Auto) >30 /lpf (0-5) H 08/03/20 11:35 Urine Bacteria (Auto) Negative (Negative) 08/03/20 11:35 COVID-19 Eval Order Covid19 [facility]Now [facility] 08/17/20 06:26 SARS-CoV-2, RNA, NAAT NEGATIVE (NEGATIVE) 08/17/20 06:26 Blood Type O Positive 08/03/20 11:35 Antibody Screen NEGATIVE 08/03/20 11:35 Impressions Chest X-Ray 08/03/20 08:22 XR chest Pre-admission PA/Lat HISTORY: Neck pain. Preop. COMPARISON: Chest 06/06/2018. FINDINGS: The lungs are clear. Cardiac silhouette is normal in size. No pleural effusions. No pneumothorax. Cervical spinal fusion hardware is noted. IMPRESSION: No acute process. ACT 112: Negative or not required by law. Electronically signed by: Arturo Hoskins M.D. 08/03/2020 12:01 PM Cervical Spine X-Ray 08/17/20 07:00 FL cervical 2-3V CLINICAL HISTORY: C6-C7 PCDF COMPARISON STUDY: June 2018 FLUOROSCOPY TIME: 38 seconds. NUMBER OF FLUOROSCOPIC IMAGES: 2 FINDINGS: There is evidence of a prior anterior cervical discectomy and fusion at the C5-C6 level. There is now evidence for a posterior spinal fusion. The exact the level of the surgery is difficult to ascertain on these intraoperative fluoroscopic spot films. IMPRESSION: Interval posterior spinal fusion. The exact level is difficult to ascertain on the provided images. ACT 112: Negative or not required by law. Electronically signed by: Shreyas Clinton M.D. 08/17/2020 9:51 AM
[2020-08-18] MEDS: ceFAZolin 2000MG 2,000 MG/15 ML SYR IV SCH (00:15)
[2020-08-18] MEDS: KETOROLAC TROMETHAMINE 15 MG/ML VIAL IV SCH (04:12)
[2020-08-18] MEDS: dexAMETHasone 8 MG in SYRINGE 0 ML IV SCH ×3 (04:13→20:52)
[2020-08-18] MEDS: POLYETHYLENE (MIRALAX) 17 GM PACK PO SCH ×4 (06:32→20:52)
[2020-08-18] MEDS: LACTATED RINGER'S 1,000 ML IV SCH (06:38)
[2020-08-18] MEDS ORDERED: NICOTINE 14 MG/24 HR PATCH TD PRN (08:57)
--- NOTE | 2020-08-18 08:58 | Hospitalist Progress Note ---
Date of Service August 18, 2020 Assessment & Plan (1) Cervical stenosis of spinal canal: S/P Posterior cervical decompression/fusion C6-C7 EBL: 25 ml; Roni drain 130 ml tolerated procedure well continue c-collar pain/wound management per ortho activity, therapy, diet per orthopedics check cbc, bmp this a.m. monitor h/ h - pre op hgb 14.3 (2) Anxiety: prn lorazepam mood stable (3) Tobacco abuse: nicotine patch ordered - currently pt declines encourage smoking cessation DVT ppx: scd/teds, per primary PCP: Philipp Monroe FULL CODE Pt was seen and examined in collaboration with Dr. Blount, please see addendum Thank you for this consultation. We will follow the patient with you during their hospital stay. You can reach a member of the [facility] Hospitalist Team 31/10 via hospitalist role on tiger text. Admission and Anticipated Discharge Date Admission Date: August 17, 2020 Supervising Physician Co-Signing Physician Notes Attending addendum: The patient was seen and examined in the medical floor She is a status post C6-C7 posterior cervical decompression and fusion Has had likely blepharitis involving the right eye which has been improving Denies any significant symptoms On examination No apparent distress at rest Right upper eyelid is edematous Hemodynamically stable Chestclear to auscultate bilaterally HeartS1-S2, regular Abdomenbenign Extremitiesno edema Her labs and imaging studies reviewed She has right eye blepharitis and is improved with Benadryl with history of similar symptoms in the past Remains medically stable status post cervical spinal surgery Agree with assessment and plan as outlined above by GRAYSON Ordonez Dr Subjective Pt was seen and examined in room 319-1. Follow up Posterior Cervical decomp fusion by Dr. Stewart. She feels fine this morning. She complains of incisional pain 6/10. Denies numbness, tingling or radiculopathy. She further denies chest pain, sob, f/c/s, dizziness, n/v/d, abdominal pain. She is urinating with out difficult. Review of Systems Review of Systems: All systems reviewed & are unremarkable except as noted in HPI & below Physical Exam Physical Exam: Gen: WD/WN, F, NAD, A&O x3, c-collar in place HEENT: Normocephalic, atraumatic, conjunctivae moist, sclerae anicteric, mucous membranes moist. Lung: Clear to Auscultation bilaterally, no wheezes/rales/rhonchi Heart: Regular rate, regular rhythm, no murmurs, rubs, or gallops Abdomen: Soft, NT, ND +BS x 4 Extremities: No edema, arom x 4, strength 5/5 Skin: Warm, no rash, negative turgor. Results & Data Results & Data ([facility]) Vital Signs (Past 12 Hours) Vital Signs Temp Pulse Resp BP Pulse Ox 08/18/20 08:00 36.7 C 102 H 16 141/87 H 94 08/18/20 07:00 101 H 18 93 08/18/20 06:05 36.6 C 94 H 16 132/82 95 08/18/20 04:08 36.6 C 90 18 128/62 94 08/18/20 03:00 73 20 91 08/18/20 02:05 36.7 C 90 18 126/81 94 08/18/20 00:10 36.8 C 97 H 16 124/79 95 08/17/20 22:16 36.8 C 93 H 18 134/88 97 08/17/20 22:12 91 H 18 95 Laboratory Results CBC, BMP ordered Diagnostic Findings Chest X-Ray 08/03/20 08:22 XR chest Pre-admission PA/Lat HISTORY: Neck pain. Preop. COMPARISON: Chest 06/06/2018. FINDINGS: The lungs are clear. Cardiac silhouette is normal in size. No pleural effusions. No pneumothorax. Cervical spinal fusion hardware is noted. IMPRESSION: No acute process. ACT 112: Negative or not required by law. Electronically signed by: Arturo Hoskins M.D. 08/03/2020 12:01 PM Cervical Spine X-Ray 08/17/20 07:00 FL cervical 2-3V CLINICAL HISTORY: C6-C7 PCDF COMPARISON STUDY: June 2018 FLUOROSCOPY TIME: 38 seconds. NUMBER OF FLUOROSCOPIC IMAGES: 2 FINDINGS: There is evidence of a prior anterior cervical discectomy and fusion at the C5-C6 level. There is now evidence for a posterior spinal fusion. The exact the level of the surgery is difficult to ascertain on these intraoperative fluoroscopic spot films. IMPRESSION: Interval posterior spinal fusion. The exact level is difficult to ascertain on the provided images. ACT 112: Negative or not required by law. Electronically signed by: Shreyas Clinton M.D. 08/17/2020 9:51 AM Medications Administered Hydrocodone Bitart/Acetaminophen (Hydrocodone/Acetamophen 5/325mg Tab) 1 - 2 tab PO Q4H PRN PRN Reason: Pain & Pre PT Stop: 08/31/20 11:00 Last Admin: 08/17/20 14:11 Dose: 2 tab Documented by: [id number] Diphenhydramine HCl (Diphenhydramine Capsule 25 Mg Cap) 25 mg PO Q6H PRN PRN Reason: Allergic Rhinitis/Insomnia Stop: 09/16/20 11:00 Last Admin: 08/17/20 20:49 Dose: 25 mg Documented by: [id number] Hydromorphone HCl (Hydromorphone Inj 0.5 Mg/0.5 Ml Syr) 0.5 mg IV Q3H PRN PRN Reason: MOD pain (scale 4-6) & Pre PT Stop: 08/31/20 11:00 Last Admin: 08/18/20 02:21 Dose: 0.5 mg Documented by: [id number] Dexamethasone 8 mg/ Syringe 2 mls @ 1 mls/min IV Q8H ITZEL Stop: 09/16/20 21:59 Last Admin: 08/18/20 04:13 Dose: 1 mls/min Documented by: [id number] Ondansetron HCl (Ondansetron Inj 2 Mg/Ml 2 Ml Vial) 4 mg IV Q6H PRN PRN Reason: Nausea &/or Vomiting Stop: 09/16/20 11:00 Last Admin: 08/17/20 18:01 Dose: 4 mg Documented by: [id number] Polyethylene Glycol (Polyethylene (Miralax) 17 Gm Pack) 17 gm PO Q6 ITZEL Stop: 09/17/20 05:59 Last Admin: 08/18/20 06:32 Dose: 17 gm Documented by: [id number] Senna/Docusate Sodium (Docusate Sodium/Senna 50/8.6mg Tab) 2 tab PO HS ITZEL Stop: 09/16/20 20:59 Last Admin: 08/17/20 22:19 Dose: 2 tab Documented by: [id number] Discontinued Medications Acetaminophen (Acetaminophen 500 Mg Tab) 1,000 mg PO PREOP ITZEL Stop: 09/16/20 05:59 Last Admin: 08/17/20 06:58 Dose: 1,000 mg Documented by: [id number] Bacitracin (Bacitracin Oint 15 Gm Tube) Confirm Administered Dose 45 appln .ROUTE .STK-MED ONE Stop: 08/17/20 07:12 Last Admin: 08/17/20 08:50 Dose: 45 appln Documented by: [id number] Bupivacaine HCl/Epinephrine Bitart (Bupivacaine/Epinephrine 0.5% Mpf 1:200,000 30 Ml Vial) Confirm Administered Dose 30 ml .ROUTE .STK-MED ONE Stop: 08/17/20 07:54 Last Admin: 08/17/20 08:49 Dose: 20 ml Documented by: [id number] Cefazolin Sodium (Cefazolin 250 Mg/Ml 1 Gm Vial) Confirm Administered Dose 1,000 mg .ROUTE .STK-MED ONE Stop: 08/17/20 07:12 Last Admin: 08/17/20 12:28 Dose: Not Given Documented by: [id number] Celecoxib (Celebrex 200 Mg Cap) 200 mg PO PREOP ITZEL Stop: 09/16/20 05:59 Last Admin: 08/17/20 06:59 Dose: 200 mg Documented by: [id number] Fentanyl Citrate (Fentanyl Citrate 100 Mcg/2 Ml Vial) 25 mcg IV Q5M PRN PRN Reason: PACU Use Only-Pain Stop: 08/17/20 16:29 Last Admin: 08/17/20 10:20 Dose: 25 mcg Documented by: [id number] Admin: 08/17/20 10:15 Dose: 25 mcg Documented by: [id number] Admin: 08/17/20 10:10 Dose: 25 mcg Documented by: [id number] Admin: 08/17/20 10:05 Dose: 25 mcg Documented by: [id number] Gabapentin (Gabapentin 900 Mg Dose) 900 mg PO PREOP ITZEL Stop: 09/16/20 05:59 Last Admin: 08/17/20 06:58 Dose: 900 mg Documented by: [id number] Hydromorphone HCl (Hydromorphone Inj 1 Mg/Ml Syringe) Confirm Administered Dose 1 mg .ROUTE .STK-MED ONE Stop: 08/17/20 10:28 Last Increment: 08/17/20 10:43 Dose: 0.25 mg Documented by: [id number] Increment: 08/17/20 10:38 Dose: 0.25 mg Documented by: [id number] Increment: 08/17/20 10:33 Dose: 0.25 mg Documented by: [id number] Increment: 08/17/20 10:27 Dose: 0.25 mg Documented by: [id number] Lactated Ringer's (Lr) 1,000 mls @ 15 mls/hr IV .Q24H ITZEL Stop: 08/18/20 05:59 Last Infusion: 08/17/20 07:46 Dose: 0 mls/hr Documented by: [id number] Admin: 08/17/20 06:58 Dose: 15 mls/hr Documented by: [id number] Cefazolin Sodium (Ancef 2000mg) 2,000 mg in 15 mls @ 3.75 mls/min IV PREOP ITZEL; Protocol Stop: 08/18/20 05:59 Last Admin: 08/17/20 07:46 Dose: 3.75 mls/min Documented by: [id number] Lactated Ringer's (Lr) 1,000 mls @ 100 mls/hr IV .Q10H ITZEL Stop: 09/16/20 11:00 Last Admin: 08/18/20 06:38 Dose: Not Given Documented by: [id number] Infusion: 08/18/20 06:35 Dose: 0 mls/hr Documented by: [id number] Admin: 08/17/20 22:24 Dose: 100 mls/hr Documented by: [id number] Infusion: 08/17/20 22:24 Dose: 100 mls/hr Documented by: [id number] Admin: 08/17/20 13:02 Dose: 100 mls/hr Documented by: [id number] Cefazolin Sodium (Ancef 2000mg) 2,000 mg in 15 mls @ 3.75 mls/min IV Q8H ITZEL; Protocol Stop: 08/18/20 00:03 Last Admin: 08/18/20 00:15 Dose: 3.75 mls/min Documented by: [id number] Admin: 08/17/20 16:40 Dose: 3.75 mls/min Documented by: [id number] Dexamethasone 8 mg/ Syringe 2 mls @ 1 mls/min IV ONE ONE Stop: 08/17/20 20:46 Last Admin: 08/17/20 21:06 Dose: 1 mls/min Documented by: [id number] Ketorolac Tromethamine (Ketorolac Tromethamine 15 Mg/Ml Vial) 15 mg IV Q6H [facility] Stop: 08/18/20 05:02 Last Admin: 08/18/20 04:12 Dose: 15 mg Documented by: [id number] Admin: 08/17/20 22:24 Dose: 15 mg Documented by: [id number] Admin: 08/17/20 17:20 Dose: 15 mg Documented by: [id number] Admin: 08/17/20 13:01 Dose: 15 mg Documented by: [id number] Miscellaneous ( Floseal Hemostatic Matrix 10ml) 6 ml TOP ONCE ONE Stop: 08/17/20 09:19 Last Admin: 08/17/20 12:29 Dose: Not Given Documented by: [id number] Ondansetron HCl (Ondansetron Inj 2 Mg/Ml 2 Ml Vial) 4 mg IV ONCE PRN PRN Reason: PACU Use Only-Nausea/Vomiting Stop: 08/17/20 16:30 Last Admin: 08/17/20 10:05 Dose: 4 mg Documented by: [id number]
[2020-08-18] MEDS: traMADol HCL 50 MG TABLET PO PRN ×2 (09:46→18:47)
--- NOTE | 2020-08-18 15:36 | Orthopedic Progress Note ---
Date of Service August 18, 2020 Assessment & Plan (1) Cervical stenosis of spinal canal: Admission and Anticipated Discharge Date Admission Date: August 17, 2020 This time the patient's pain is controlled arm symptoms markedly improved. We will change her dressing this evening and possible discharge home tomorrow. Subjective Patient's neck pain is controlled arm symptoms markedly improved. Physical Exam Physical Exam: On exam she is good strength testing appears comfortable. Results & Data ([facility]) Vital Signs (Past 12 Hours) Vital Signs Temp Pulse Resp BP Pulse Ox 08/18/20 15:22 96 H 16 95 08/18/20 14:00 36.9 C 99 H 16 126/81 93 08/18/20 12:00 37 C 92 H 16 142/88 H 94 08/18/20 11:30 98 H 18 95 08/18/20 09:54 36.9 C 102 H 18 146/88 H 93 08/18/20 08:00 36.7 C 102 H 16 141/87 H 94 08/18/20 07:00 101 H 18 93 08/18/20 06:05 36.6 C 94 H 16 132/82 95 08/18/20 04:08 36.6 C 90 18 128/62 94
[2020-08-18] MEDS: diphenhydrAMINE Capsule 25 MG CAP PO PRN (15:49)
[2020-08-18] MEDS: DOCUSATE SODIUM/SENNA 50/8.6MG TAB PO SCH (20:52)
[2020-08-18] MEDS: HYDROCODONE/ACETAMOPHEN 5/325MG TAB PO PRN (21:59)
[2020-08-18] MEDS: ONDANSETRON INJ 2 MG/ML 2 ML VIAL IV PRN (21:59)
[2020-08-19] MEDS: POLYETHYLENE (MIRALAX) 17 GM PACK PO SCH ×2 (05:08→11:58)
[2020-08-19] MEDS: dexAMETHasone 8 MG in SYRINGE 0 ML IV SCH (05:08)
[2020-08-19 07:00] LABS: Hemoglobin 13.4 g/dL (12.0-16.0); Mean Corpuscular Hemoglobin 31.6 pg (25-34); Mean Corpuscular Hgb Conc 33.5 g/dL (32-36); Mean Corpuscular Volume 94.3 fL (80-100); Mean Platelet Volume 10.6 fL (7.4-10.4); Platelet Count 260 K/uL (130-400); RDW Coefficient of Variation 12.9 % (11.5-14.5); RDW Standard Deviation 44.4 fL (36.4-46.3); Red Blood Count 4.24 M/uL (4.2-5.4); White Blood Count 23.07 K/uL (4.8-10.8)
[2020-08-19 07:47] LABS: Basophils # (auto) 0.01 K/uL (0-0.2); Eosinophils # (auto) 0.01 K/uL (0-0.5); Immature Granulocytes # (auto) 0.11 K/uL (0.00-0.02); Immature Granulocytes % (auto) 0.5 %; Lymphocytes # (auto) 1.44 K/uL (1.2-3.4); Lymphocytes % (auto) 6.2 %; Monocytes # (auto) 1.24 K/uL (0.11-0.59); Monocytes % (auto) 5.4 %; Neutrophils # (auto) 20.26 K/uL (1.4-6.5); Neutrophils % (auto) 87.9 %
[2020-08-19 08:10] LABS: BUN Creatinine Ratio 21.9 (10-20); Calcium 8.8 mg/dl (8.5-10.1); Est GFR (Non-African American) 98.3
--- NOTE | 2020-08-19 08:45 | Hospitalist Progress Note ---
Date of Service August 19, 2020 Assessment & Plan (1) Cervical stenosis of spinal canal: S/P Posterior cervical decompression/fusion C6-C7, POD #2 EBL: 25 ml; Roni drain 130 ml tolerated procedure well continue c-collar pain/wound management per ortho activity, therapy, diet per orthopedics check cbc, bmp this a.m. monitor h/ h - pre op hgb 14.3, today 13.4 pt to be discharged later today Leukocytosis wbc 23k, likely reactive pt is on decadron q8hr no s/sx of infection (2) Anxiety: prn lorazepam mood stable (3) Tobacco abuse: nicotine patch ordered - currently pt declines encourage smoking cessation DVT ppx: scd/teds, per primary PCP: Philipp Monroe FULL CODE Pt was seen and examined in collaboration with Dr. Blount, please see addendum Thank you for this consultation. We will follow the patient with you during their hospital stay. You can reach a member of the [facility] Hospitalist Team 31/10 via hospitalist role on tiger text. Admission and Anticipated Discharge Date Admission Date: August 17, 2020 Supervising Physician Co-Signing Physician Notes Attending addendum The patient was seen and examined in medical floor She has been feeling a lot better and her right eyelid swelling is improved She has the neck collar in situ without any significant symptoms On examination Sitting on a chair without any acute distress Hemodynamically stable Chestclear to auscultate bilaterally HeartS1-S2, regular Abdomenbenign Extremitiesnegative for any edema Her labs and imaging studies reviewed She has leukocytosis likely secondary to use of Decadron without any evidence of infection Agree with assessment and plan as outlined above by GRAYSON Ordonez Dr Subjective Patient was seen and examined in room 319. She is status post posterior cervical decompression fusion by Dr. Stewart. She offers no acute concerns. "I am ready to go home." "I did not sleep well because I am on steroids." She denies any fever, chills, sweats, lightheadedness, dizziness, chest pain, shortness of breath, cough, nausea, vomiting, abdominal pain. She is passing flatus but no BM. States this is normal for her even despite surgery. She has been up walking around and has not been participating in any therapy. Review of Systems Review of Systems: All systems reviewed & are unremarkable except as noted in HPI & below Physical Exam Physical Exam: Gen: WD/WN, NAD, A&O x3 HEENT: C-collar in place, normocephalic, atraumatic, conjunctivae moist, sclerae anicteric, mucous membranes moist. Lung: Clear to Auscultation bilaterally, no wheezes/rales/rhonchi Heart: Regular rate, regular rhythm, no murmurs, rubs, or gallops Abdomen: Soft, NT, ND +BS x 4 Extremities: No edema Skin: Warm, no rash, negative turgor. Results & Data Results & Data ([facility]) Vital Signs (Past 12 Hours) Vital Signs Temp Pulse Resp BP Pulse Ox 08/19/20 08:05 36.9 C 88 18 133/89 93 08/19/20 07:18 36.6 C 86 16 127/82 93 08/19/20 06:58 86 16 93 08/19/20 04:17 36.6 C 90 16 127/82 95 08/19/20 03:20 79 16 95 08/18/20 23:30 36.6 C 86 16 135/90 94 08/18/20 22:40 83 16 93 Laboratory Results Short CBC 08/03/20 08/19/20 08/19/20 Range/Units 11:35 06:31 06:31 WBC 23.07 H (4.8-10.8) K/uL Hgb 13.4 (12.0-16.0) g/dL Hct 40.0 (37-47) % Plt Count 260 (130-400) K/uL Potassium 4.2 (3.5-5.1) mmol/L [facility] 08/19/20 06:31 Sodium 140 Potassium Chloride 108 H Carbon Dioxide 25 BUN 16 Creatinine 0.72 Glucose 128 H Calcium 8.8 Medications Administered Hydrocodone Bitart/Acetaminophen (Hydrocodone/Acetamophen 5/325mg Tab) 1 - 2 tab PO Q4H PRN PRN Reason: Pain & Pre PT Stop: 08/31/20 11:00 Last Admin: 08/18/20 21:59 Dose: 2 tab Documented by: [id number] Admin: 08/17/20 14:11 Dose: 2 tab Documented by: [id number] Diphenhydramine HCl (Diphenhydramine Capsule 25 Mg Cap) 25 mg PO Q6H PRN PRN Reason: Allergic Rhinitis/Insomnia Stop: 09/16/20 11:00 Last Admin: 08/18/20 15:49 Dose: 25 mg Documented by: [id number] Admin: 08/17/20 20:49 Dose: 25 mg Documented by: [id number] Hydromorphone HCl (Hydromorphone Inj 0.5 Mg/0.5 Ml Syr) 0.5 mg IV Q3H PRN PRN Reason: MOD pain (scale 4-6) & Pre PT Stop: 08/31/20 11:00 Last Admin: 08/18/20 02:21 Dose: 0.5 mg Documented by: [id number] Dexamethasone 8 mg/ Syringe 2 mls @ 1 mls/min IV Q8H [facility] Stop: 09/16/20 21:59 Last Admin: 08/19/20 05:08 Dose: 1 mls/min Documented by: [id number] Admin: 08/18/20 20:52 Dose: 1 mls/min Documented by: [id number] Admin: 08/18/20 12:59 Dose: 1 mls/min Documented by: [id number] Admin: 08/18/20 04:13 Dose: 1 mls/min Documented by: [id number] Miscellaneous (Remove Nicoderm Patch) 1 ea N/A DAILY@[id number] [facility] Stop: 09/17/20 08:58 Last Admin: 08/19/20 07:01 Dose: Not Given Documented by: [id number] Admin: 08/18/20 09:48 Dose: Not Given Documented by: [id number] Ondansetron HCl (Ondansetron Inj 2 Mg/Ml 2 Ml Vial) 4 mg IV Q6H PRN PRN Reason: Nausea &/or Vomiting Stop: 09/16/20 11:00 Last Admin: 08/18/20 21:59 Dose: 4 mg Documented by: [id number] Admin: 08/17/20 18:01 Dose: 4 mg Documented by: [id number] Polyethylene Glycol (Polyethylene (Miralax) 17 Gm Pack) 17 gm PO Q6 [facility] Stop: 09/17/20 05:59 Last Admin: 08/19/20 05:08 Dose: Not Given Documented by: [id number] Admin: 08/18/20 20:52 Dose: Not Given Documented by: [id number] Admin: 08/18/20 18:09 Dose: Not Given Documented by: [id number] Admin: 08/18/20 11:31 Dose: 17 gm Documented by: [id number] Admin: 08/18/20 06:32 Dose: 17 gm Documented by: [id number] Senna/Docusate Sodium (Docusate Sodium/Senna 50/8.6mg Tab) 2 tab PO HS [facility] Stop: 09/16/20 20:59 Last Admin: 08/18/20 20:52 Dose: Not Given Documented by: [id number] Admin: 08/17/20 22:19 Dose: 2 tab Documented by: [id number] Tramadol HCl (Tramadol Hcl 50 Mg Tablet) 50 - 100 mg PO Q4H PRN PRN Reason: Moderate-Severe pain & Pre PT Stop: 09/16/20 11:00 Last Admin: 08/18/20 18:47 Dose: 100 mg Documented by: [id number] Admin: 08/18/20 09:46 Dose: 100 mg Documented by: [id number] Discontinued Medications Acetaminophen (Acetaminophen 500 Mg Tab) 1,000 mg PO PREOP [facility] Stop: 09/16/20 05:59 Last Admin: 08/17/20 06:58 Dose: 1,000 mg Documented by: [id number] Bacitracin (Bacitracin Oint 15 Gm Tube) Confirm Administered Dose 45 appln .ROUTE .STK-MED ONE Stop: 08/17/20 07:12 Last Admin: 08/17/20 08:50 Dose: 45 appln Documented by: [id number] Bupivacaine HCl/Epinephrine Bitart (Bupivacaine/Epinephrine 0.5% Mpf 1:200,000 30 Ml Vial) Confirm Administered Dose 30 ml .ROUTE .STK-MED ONE Stop: 08/17/20 07:54 Last Admin: 08/17/20 08:49 Dose: 20 ml Documented by: [id number] Cefazolin Sodium (Cefazolin 250 Mg/Ml 1 Gm Vial) Confirm Administered Dose 1,000 mg .ROUTE .STK-MED ONE Stop: 08/17/20 07:12 Last Admin: 08/17/20 12:28 Dose: Not Given Documented by: [id number] Celecoxib (Celebrex 200 Mg Cap) 200 mg PO PREOP [facility] Stop: 09/16/20 05:59 Last Admin: 08/17/20 06:59 Dose: 200 mg Documented by: [id number] Fentanyl Citrate (Fentanyl Citrate 100 Mcg/2 Ml Vial) 25 mcg IV Q5M PRN PRN Reason: PACU Use Only-Pain Stop: 08/17/20 16:29 Last Admin: 08/17/20 10:20 Dose: 25 mcg Documented by: [id number] Admin: 08/17/20 10:15 Dose: 25 mcg Documented by: [id number] Admin: 08/17/20 10:10 Dose: 25 mcg Documented by: [id number] Admin: 08/17/20 10:05 Dose: 25 mcg Documented by: [id number] Gabapentin (Gabapentin 900 Mg Dose) 900 mg PO PREOP [facility] Stop: 09/16/20 05:59 Last Admin: 08/17/20 06:58 Dose: 900 mg Documented by: [id number] Hydromorphone HCl (Hydromorphone Inj 1 Mg/Ml Syringe) Confirm Administered Dose 1 mg .ROUTE .STK-MED ONE Stop: 08/17/20 10:28 Last Increment: 08/17/20 10:43 Dose: 0.25 mg Documented by: [id number] Increment: 08/17/20 10:38 Dose: 0.25 mg Documented by: [id number] Increment: 08/17/20 10:33 Dose: 0.25 mg Documented by: [id number] Increment: 08/17/20 10:27 Dose: 0.25 mg Documented by: [id number] Lactated Ringer's (Lr) 1,000 mls @ 15 mls/hr IV .Q24H [facility] Stop: 08/18/20 05:59 Last Infusion: 08/17/20 07:46 Dose: 0 mls/hr Documented by: [id number] Admin: 08/17/20 06:58 Dose: 15 mls/hr Documented by: [id number] Cefazolin Sodium (Ancef 2000mg) 2,000 mg in 15 mls @ 3.75 mls/min IV PREOP [facility]; Protocol Stop: 08/18/20 05:59 Last Admin: 08/17/20 07:46 Dose: 3.75 mls/min Documented by: [id number] Lactated Ringer's (Lr) 1,000 mls @ 100 mls/hr IV .Q10H [facility] Stop: 09/16/20 11:00 Last Admin: 08/18/20 06:38 Dose: Not Given Documented by: [id number] Infusion: 08/18/20 06:35 Dose: 0 mls/hr Documented by: [id number] Admin: 08/17/20 22:24 Dose: 100 mls/hr Documented by: [id number] Infusion: 08/17/20 22:24 Dose: 100 mls/hr Documented by: [id number] Admin: 08/17/20 13:02 Dose: 100 mls/hr Documented by: [id number] Cefazolin Sodium (Ancef 2000mg) 2,000 mg in 15 mls @ 3.75 mls/min IV Q8H [facility]; Protocol Stop: 08/18/20 00:03 Last Admin: 08/18/20 00:15 Dose: 3.75 mls/min Documented by: [id number] Admin: 08/17/20 16:40 Dose: 3.75 mls/min Documented by: [id number] Dexamethasone 8 mg/ Syringe 2 mls @ 1 mls/min IV ONE ONE Stop: 08/17/20 20:46 Last Admin: 08/17/20 21:06 Dose: 1 mls/min Documented by: [id number] Ketorolac Tromethamine (Ketorolac Tromethamine 15 Mg/Ml Vial) 15 mg IV Q6H [facility] Stop: 08/18/20 05:02 Last Admin: 08/18/20 04:12 Dose: 15 mg Documented by: [id number] Admin: 08/17/20 22:24 Dose: 15 mg Documented by: [id number] Admin: 08/17/20 17:20 Dose: 15 mg Documented by: [id number] Admin: 08/17/20 13:01 Dose: 15 mg Documented by: [id number] Miscellaneous ( Floseal Hemostatic Matrix 10ml) 6 ml TOP ONCE ONE Stop: 08/17/20 09:19 Last Admin: 08/17/20 12:29 Dose: Not Given Documented by: [id number] Ondansetron HCl (Ondansetron Inj 2 Mg/Ml 2 Ml Vial) 4 mg IV ONCE PRN PRN Reason: PACU Use Only-Nausea/Vomiting Stop: 08/17/20 16:30 Last Admin: 08/17/20 10:05 Dose: 4 mg Documented by: [id number]
[2020-08-19] MEDS ORDERED: bisacodyL 10 MG SUPP PR PRN (09:38)
--- NOTE | 2020-08-19 10:07 | Discharge Summary ---
Date of Service August 19, 2020 Admission HPI Per Admitting Provider This is a 50-year-old female who presents with chronic persistent neck and arm symptoms after failing course of nonoperative care she is here for surgical intervention. Principal Diagnosis Cervical radiculopathy Discharge Data Allergies Allergy/AdvReac Type Severity Reaction Status Date / Time oxycodone Allergy Severe Shortness Verified 08/17/20 06:31 of Breath Consultations 08/17/20 20:39 Consult Hospitalist Routine Procedures Performed Operation Date: 08/17/20 07:45 Actual Procedures p C6-C7 Posterior Cervical Decompression Fusion, Spinal Cord Monitoring(Not Applicable) - Taiwo Stewart DO Ordered Studies 08/17/20 07:00 FL cervical 2-3V Routine Hospital Course (1) Cervical stenosis of spinal canal: Patient underwent posterior cervical decompression fusion tolerated w [facility] orthopedic for possibly. Postop day 1 pain was controlled ROSALBA drain decreasing probably. Postop day #2 she is markedly improved excellent strength testing separately discharged home. Discharge orders instructions from the chart for further review. Total Time Total Time Spent Total Time Spent (In Minutes): 20 minutes Discharge Plan Discharge Items Patient Disposition: Home - Self-Care Reason For Visit: Spinal Stenosis, Cervical Region Discharge Diagnosis: Cervical radiculopathy Activity: As commented below Non-emergency contact: Primary Care Provider Call non-emergency contact if: you have any medication questions Follow-up/Referrals: Kandis Slater MD [Primary Care Provider] - Diet: Regular Addtl Attending Provider Instructions: ACTIVITY RECOMMENDATIONS: SELF CARE INSTRUCTIONS AFTER CERVICAL FUSIONS 1. No smoking. Smoking drastically decreases the chance of a solid fusion. 2. No bending, lifting more than 5 pounds, or twisting (roll like a log when turning in bed). 3. You may shower 3 days after surgery. Thoroughly dry wound. Do not soak in the tub. 4. Cervical collar: Must be worn at all times including sleeping. You may remove the brace only to bath, eat and if you are sitting in a recliner. 5. Please walk as much as you can for exercise. Gradually increase the distance that you walk as your endurance increases. SPECIAL CARE INSTRUCTIONS: VERY IMPORTANT TO READ AND REVIEW A. Do not take any anti-inflammatory medications (i.e. Indocin, Advil, Aspirin, Naprosyn, Aleve, Motrin, etc.) as these may inhibit the chance of a solid fusion. Tylenol is okay to take. B. Your surgical incision has been closed with a cosmetic suture under the skin that will dissolve in about 6 weeks. In 14 days, you can use a pair of clean scissors and cut the suture that is left outside of the skin at the ends of your incision. C. Complications are uncommon, but please contact us if you have any signs or symptoms of: 1. wound infection (fever higher than 102.5 degrees F, redness, separation of wound, drainage, or increasing pain from the incision) 2. blood clots in legs (pain, swelling, redness and warmth in legs) 3. urinary tract infection (fever higher than 102.5 degrees, burning upon urination or increased frequency of urination) 4. nerve problems (inability to walk on your toes or heels, numbness, loss of bowel or bladder control) 5. any other symptoms that concern you. D. Please call the office at if you have any concerns or questions about your operation or recovery. MANAGING PAIN AFTER SPINAL SURGERY 1. Narcotic medication is intended for short-term use and will be provided for surgical pain. Surgical pain usually lasts for a period of 4-6 weeks. Narcotic medication includes Percocet, Vicodin, Darvocet, Tylenol #3 or Lortab. 2. Longer-term pain is more appropriately treated with non-narcotic medication such as Tylenol ES. 3. Muscle spasm is not appropriately treated with narcotics. Muscle relaxers such as Soma, Flexeril or Skelaxin can be used along with Tylenol ES. 4. Remember that we all live with some "aches and pains". This is not unusual or uncommon after an injury or as we get older. 5. We will provide appropriate medication within the normal guidelines of their prescribed use. We will also be very cautious and aware of potential abuse and extended duration of patients' medication needs. 6. Please allow 2-3 days to process refills. Prescriptions will not be mailed but must be picked up at the office. FOLLOW UP VISIT: Keep your scheduled follow-up appointment. Any questions, please call the office at . Pending Studies at Discharge: No Stand-Alone Forms: My [facility] [place], Smoking Cessation Medications and DC Order Prescriptions: New hydrocodone-acetaminophen 5-325 mg tablet See Rx Instructions .ROUTE .COMPLEX PRN (Reason: pain) Qty: 30 RF: 0 ondansetron HCl [Zofran] 4 mg tablet 4 mg PO Q8H PRN (Reason: nausea and vomiting) Qty: 20 RF: 0 Continued lorazepam 0.5 mg tablet 0.5 mg PO DAILY PRN (Reason: Anxiety) RF: 0 Ibuprofen PM 200-25 mg Capsule 1 cap PO HS RF: 0 Discharge Orders: Discharge Order (Routine); Ordered 08/19/20 Ordered By: Taiwo Stewart Admission Data Admit Date/Time: 08/17/20 11:01 Attending Provider: Taiwo Stewart Admit Provider: Taiwo Stewart Primary Care Provider: Kandis Slater Other Providers: Halie Duran Other Interventions: Discharge Summary Assessment (RN) Last Done: 08/19/20 07:18
[2020-08-19] MEDS: HYDROCODONE/ACETAMOPHEN 5/325MG TAB PO PRN (12:37)
== END 2020-08-19 12:50 | disposition home or self-care (01) | DRG 473 ==
LOC: ASU 06:14 → 3E 11:01

== ENCOUNTER 2020-08-23 06:13 | Inpatient (IN) ==
[2020-08-23] MEDS ORDERED: SODIUM CHLORIDE 0.9% 1000ML 1,000 ML IV STA (07:00)
[2020-08-23] MEDS ORDERED: KETOROLAC TROMETHAMINE 15 MG/ML VIAL IV STA (07:00)
[2020-08-23] MEDS ORDERED: ONDANSETRON INJ 2 MG/ML 2 ML VIAL IV STA (07:00)
--- NOTE | 2020-08-23 07:06 | Emergency Department Note ---
History of Present Illness General Chief complaint: Vomiting Stated complaint: VOMITING, Time Seen by Provider: 08/23/20 06:48 Source: patient and family (Spouse who is at the bedside) Mode of arrival: ambulatory Limitations: no limitations History of Present Illness This patient is a 50-year-old female who comes in after having abdominal pain and vomiting. She had neck surgery by Dr. Stewart on Monday and still has some mild neck pain but does think she is healing well from that. Abdominal pain started yesterday. Is diffuse she has had multiple episodes of vomiting and diarrhea. She had a small mount of blood in her stool but thinks that is from pushing too hard. She has gotten constipated after surgeries before. She denies any fevers but has had some chills she had indigestion feelings. She said she was tested negative for Covid twice last week prior to surgery. She has not had the Covid vaccine. No dysuria hematuria. No head headache. No cough chest pain or shortness of breath. She has had a hysterectomy with 1 ovary removed as well as an appendectomy. She still does have her gallbladder. She has been taking hydrocodone at home but using it very sparingly and the last time she took it was several days ago. Home Medications Medication Instructions Recorded Confirmed Type lorazepam 0.5 mg PO DAILY PRN 02/13/18 08/23/20 History Ibuprofen PM 1 cap PO HS 07/14/20 08/23/20 History hydrocodone-acetaminophen See Rx Instructions .ROUTE 08/17/20 08/23/20 Rx .COMPLEX PRN #30 tab ondansetron HCl [Zofran] 4 mg PO Q8H PRN #20 tab 08/19/20 08/23/20 Rx Allergies Allergy/AdvReac Type Severity Reaction Status Date / Time oxycodone Allergy Severe Shortness Verified 08/23/20 08:39 of Breath Past Med/Surg History Medical History (Updated 08/23/20 @ 13:17 by Rohith Ortiz MD) Anxiety Atypical chest pain 05/2018 S/P UNREMARKABLE EKG/NEGATIVE TROPONINS- MUSCULAR ETIOLOGY SUSPECTED; NO FURTHER EPISODES SINCE LIDOCAINE PATCH X 1 Degenerative disc disease History of ovarian cyst left side Kidney stones Obesity Osteoarthritis Tobacco use disorder Surgical History History of bunionectomy LT History of carpal tunnel release RT History of elbow surgery RT History of mandibular surgery repair of fracture R/T INJURY AT AGE 20 - NO ROM ISSUES History of neck surgery JUNE 2018 > FUSION C6-7> ROM IS WNL History of oophorectomy, unilateral History of partial hysterectomy History of repair of rotator cuff RT X 2 History of tooth extraction Family History Other Heart disease Social History Smoking Status: Current every day smoker Tobacco Type: Cigarettes packs per day: 0.5; Cigarettes Per Day: 5-6; Second Hand Exposure: Yes; Hx Alcohol Use: Yes Alcohol type: beer Hx Substance Use: No Preferred Language: Vietnamese Communication Ability: Effective Dyer Assistant Required: No Beliefs That Will Affect Care: None marital status: Current Living Situation: Spouse Feels Safe at Home: Yes Assistive Devices: Brace/Splint/Immobilizer, Glasses and Walker Review of Systems A total of 10 systems reviewed and were otherwise negative Physical Exam Vital Signs Vital Signs - 24 hr 08/23/20 06:17 08/23/20 06:27 08/23/20 07:05 Temperature 36.6 C Temperature Source Oral Pulse Rate 116 H Pulse Rate [Apical] 101 H Pulse Rhythm [Apical] Regular Pulse Strength [Apical] Normal Respiratory Rate 20 18 Respiratory Effort / Characteristics Non-Labored Spontaneous Non-Labored Respiratory Depth Normal Respiratory Pattern Regular Blood Pressure 142/82 H Blood Pressure [Left Arm] 154/95 H Blood Pressure Mean 102 Blood Pressure Mean [Left Arm] 114 Blood Pressure Position Sitting Blood Pressure Position [Left Arm] Lying Pulse Oximetry 99 100 99 Oxygen Delivery Method Room Air Room Air Room Air Sepsis Recent Fever Within 48 Hours No Sepsis New/Unexplained Change in Mental Status No Sepsis Action Taken by Nursing No Action Required 08/23/20 08:13 Temperature Temperature Source Pulse Rate Pulse Rate [Apical] 94 H Pulse Rhythm [Apical] Pulse Strength [Apical] Respiratory Rate 18 Respiratory Effort / Characteristics Respiratory Depth Respiratory Pattern Blood Pressure Blood Pressure [Left Arm] 147/91 H Blood Pressure Mean Blood Pressure Mean [Left Arm] 109 Blood Pressure Position Blood Pressure Position [Left Arm] Pulse Oximetry 97 Oxygen Delivery Method Room Air Sepsis Recent Fever Within 48 Hours Sepsis New/Unexplained Change in Mental Status Sepsis Action Taken by Nursing General: Well developed well nourished mildly ill-appearing but nontoxic middle- aged female who appears uncomfortable secondary to pain but in no acute distress, breathing comfortably on room air. Normal speech HEENT: Normal cephalic atraumatic. Pupils are equal round and reactive to light. Extraocular movements are intact. Oropharynx is pink with moist mucous membranes. No swelling of the mouth lips or tongue. Neck: Supple with a midline trachea. No meningeal signs or stiffness, no JVD or bruits. No Stridor. Well-healing surgical incision in the posterior neck. S zafar-Strips are in place. No significant redness or any drainage Chest: Clear to auscultation bilaterally. No wheezes or rhonchi. No increased work of breathing. Heart: Regular rate and rhythm without murmurs or gallops. Abdomen: Soft, minimally diffusely tender, nondistended without rebound guarding or rigidity. Extremities: No cyanosis clubbing or edema. No calf tenderness or assymetry Spine/Back. Non tender to palpation. No CVA tenderness Skin: Good turgor without rashes. Neurologic exam: Cranial nerves two through 12 are intact. Motor and sensation are intact and symmetrical throughout. Course Administered Medications Discontinued Medications Sodium Chloride (Nss 1000ml) 1,000 mls @ 999 mls/hr IV .Q1H1M STA Stop: 08/23/20 08:00 Last Infusion: 08/23/20 08:15 Dose: 0 mls/hr Documented by: [id number] Admin: 08/23/20 07:14 Dose: 999 mls/hr Documented by: [id number] Ciprofloxacin (Cipro / D5w) 400 mg in 200 mls @ 100 mls/hr IV ONE STA Stop: 08/23/20 11:59 Last Infusion: 08/23/20 12:17 Dose: 100 mls/hr Documented by: [id number] Infusion: 08/23/20 11:21 Dose: 0 mls/hr Documented by: [id number] Admin: 08/23/20 11:14 Dose: 100 mls/hr Documented by: [id number] Acetaminophen (Ofirmev) 1,000 mg in 100 mls @ 400 mls/hr IV NOW STA Stop: 08/23/20 10:35 Last Infusion: 08/23/20 11:21 Dose: 0 mls/hr Documented by: [id number] Admin: 08/23/20 10:53 Dose: 400 mls/hr Documented by: [id number] Ketorolac Tromethamine (Ketorolac Tromethamine 15 Mg/Ml Vial) 10 mg IV NOW STA Stop: 08/23/20 07:01 Last Admin: 08/23/20 07:14 Dose: 10 mg Documented by: [id number] Metronidazole (Metronidazole 500 Mg/100 Ml Bag) 500 mg IV ONE STA Stop: 08/23/20 10:02 Last Admin: 08/23/20 11:14 Dose: 500 mg Documented by: [id number] Ondansetron HCl (Ondansetron Inj 2 Mg/Ml 2 Ml Vial) 4 mg IV NOW STA Stop: 08/23/20 07:01 Last Admin: 08/23/20 07:14 Dose: 4 mg Documented by: [id number] Medical Decision Making Differential Diagnosis Bowel obstruction, dehydration, gastroenteritis, colitis, gallbladder disease, diverticulitis, postop complication, infection, Covid, electrolyte or metabolic abnormality Medical Records Attestation: I reviewed the patient's medical records. Home Medications Current Medication List: was personally reviewed by me Laboratory Data Attestation: I reviewed the patient's lab results. Result diagrams: 08/23/20 06:43 08/23/20 06:43 Lab Results 08/23/20 08/23/20 08/23/20 Range/Units 06:43 06:43 08:45 WBC 20.74 H (4.8-10.8) K/uL RBC 5.05 (4.2-5.4) M/uL Hgb 16.1 H (12.0-16.0) g/dL Hct 46.6 (37-47) % MCV 92.3 (80-100) fL MCH 31.9 (25-34) pg MCHC 34.5 (32-36) g/dL RDW Std Deviation 42.5 (36.4-46.3) fL RDW Coeff of Dudley 12.8 (11.5-14.5) % Plt Count 369 (130-400) K/uL MPV 9.3 (7.4-10.4) fL Immature Gran % (Auto) 0.4 % Neut % (Auto) 80.5 % Lymph % (Auto) 12.0 % [place] % (Auto) 7.0 % Eos % (Auto) 0.0 % Baso % (Auto) 0.1 % Neut # (Auto) 16.69 H (1.4-6.5) K/uL Lymph # (Auto) 2.49 (1.2-3.4) K/uL [place] # (Auto) 1.45 H (0.11-0.59) K/uL Eos # (Auto) 0.01 (0-0.5) K/uL Baso # (Auto) 0.02 (0-0.2) K/uL Immature Gran # (Auto) 0.08 H (0.00-0.02) K/uL Sodium 137 (136-145) mmol/L Potassium 3.9 (3.5-5.1) mmol/L Chloride 103 (98-107) mmol/L Carbon Dioxide 25 (21-32) mmol/L Anion Gap 9.0 (3-11) BUN 15 (7-18) mg/dl Creatinine 1.02 (0.6-1.2) mg/dl Est Cr Clr Drug Dosing 65.8 ml/min Est GFR ( Amer) 74.8 ml/min Est GFR (Non-Af Amer) 64.5 ml/min BUN/Creatinine Ratio 14.9 (10-20) Glucose 129 H (70-99) mg/dl Calcium 10.1 (8.5-10.1) mg/dl Total Bilirubin 0.9 (0.2-1) mg/dl AST 15 (15-37) U/L ALT 41 (12-78) U/L Alkaline Phosphatase 91 (45-117) U/L Troponin I < 0.015 (0-0.045) ng/ml Total Protein 8.4 H (6.4-8.2) gm/dl Albumin 3.9 (3.4-5.0) gm/dl Globulin 4.4 H (2.5-4.0) gm/dl Albumin/Globulin Ratio 0.9 (0.9-2) Lipase 185 (73-393) U/L COVID-19 Eval Order Covid19 at [facility] SARS-CoV-2 (PCR) (Negative) 08/23/20 Range/Units 08:45 WBC (4.8-10.8) K/uL RBC (4.2-5.4) M/uL Hgb (12.0-16.0) g/dL Hct (37-47) % MCV (80-100) fL MCH (25-34) pg MCHC (32-36) g/dL RDW Std Deviation (36.4-46.3) fL RDW Coeff of Dudley (11.5-14.5) % Plt Count (130-400) K/uL MPV (7.4-10.4) fL Immature Gran % (Auto) % Neut % (Auto) % Lymph % (Auto) % [place] % (Auto) % Eos % (Auto) % Baso % (Auto) % Neut # (Auto) (1.4-6.5) K/uL Lymph # (Auto) (1.2-3.4) K/uL [place] # (Auto) (0.11-0.59) K/uL Eos # (Auto) (0-0.5) K/uL Baso # (Auto) (0-0.2) K/uL Immature Gran # (Auto) (0.00-0.02) K/uL Sodium (136-145) mmol/L Potassium (3.5-5.1) mmol/L Chloride (98-107) mmol/L Carbon Dioxide (21-32) mmol/L Anion Gap (3-11) BUN (7-18) mg/dl Creatinine (0.6-1.2) mg/dl Est Cr Clr Drug Dosing ml/min Est GFR ( Amer) ml/min Est GFR (Non-Af Amer) ml/min BUN/Creatinine Ratio (10-20) Glucose (70-99) mg/dl Calcium (8.5-10.1) mg/dl Total Bilirubin (0.2-1) mg/dl AST (15-37) U/L ALT (12-78) U/L Alkaline Phosphatase (45-117) U/L Troponin I (0-0.045) ng/ml Total Protein (6.4-8.2) gm/dl Albumin (3.4-5.0) gm/dl Globulin (2.5-4.0) gm/dl Albumin/Globulin Ratio (0.9-2) Lipase (73-393) U/L COVID-19 Eval Order SARS-CoV-2 (PCR) NEGATIVE (Negative) Imaging Data Attestation: I personally reviewed and interpreted this imaging study as follows: My Impression: Chest x-rayno acute infiltrate, failure, pneumothorax. She may have some mild atelectasis in the bases upon my interpretation Radiologist's Impression: Abdomen/Pelvis CT 08/23/20 07:00 CT SCAN OF THE ABDOMEN AND PELVIS WITHOUT CONTRAST CLINICAL HISTORY: Abdominal pain and vomiting COMPARISON STUDY: December 13, 2019 TECHNIQUE: CT scan of the abdomen and pelvis was performed from the lung bases to the proximal femurs. Images are reviewed in the axial, sagittal, and coronal planes. IV contrast was not administered for this examination. A dose lowering technique was utilized adhering to the principles of ALARA. CT DOSE: 564.84 mGy.cm FINDINGS: Lower chest: There are mild basilar atelectatic changes. There are coronary artery calcifications. Liver: e there is a 1 cm right lobe hypodensity, similar to the prior study and likely representing a cyst Gallbladder: Unremarkable. Spleen: Normal in size and attenuation. Pancreas: Unremarkable. Adrenal glands: There is minor nodular thickening of the left adrenal gland, similar to the prior study Kidneys: There are nonobstructing small right renal calculi measuring up to 3 mm in diameter. There is no hydronephrosis. No ureteral or bladder calculi are visualized. Bowel: There are no transition zones to indicate bowel obstruction. There is colonic wall thickening involving the descending colon extending from the splenic flexure to the distal descending colon. The findings are indicative of a nonspecific colitis. By history the appendix is surgically absent. Peritoneum: There is no intraperitoneal free air or abdominal ascites. There is a small fat-containing umbilical hernia Vasculature: The abdominal aorta is normal in course and caliber. Adenopathy: None. Pelvic viscera: The uterus is surgically absent Skeletal structures: No destructive osseous lesions are seen. IMPRESSION: 1. No evidence of bowel structure. No evidence of free air 2. Right-sided nephrolithiasis. No obstructing ureteral calculi identified. 3. Interval development of left-sided colonic wall thickening with infiltration of the pericolonic fat. The findings are indicative a nonspecific colitis. ACT 112: Negative or not required by law. Electronically signed by: Shreyas Clinton M.D. 08/23/2020 8:02 AM Chest X-Ray 08/23/20 07:00 XR chest 1V portable CLINICAL HISTORY: Abdominal pain. COMPARISON STUDY: Chest CT June 06, 2018. Chest radiograph August 03, 2020. FINDINGS: Incidental note is made of postoperative findings within the cervical spine. Lung volumes are mildly diminished. Linear left basilar opacity favors a telectasis. There is no evidence for pneumonia or pulmonary edema. Cardiac size is normal. Mediastinal contours are normal. IMPRESSION: Mildly diminished lung volumes with left basilar opacity suggestive of atelectasis. ACT 112: Negative or not required by law. Electronically signed by: Vishal Gutierrez M.D. 08/23/2020 7:39 AM ECG Data Attestation: I personally reviewed and interpreted this ECG as follows: Indication: + abdominal pain Rate (beats per minute): 92 Rhythm: + normal sinus ECG Intervals/blocks: + Normal QRS, + Normal QT and + Normal AR ECG [place]: + Normal ECG ST segments: + Normal ST segments ECG Findings: no PACs and no PVCs Comparison ECG Date: from (08/03/20) [facility] Narrative This patient comes in as described above. She was placed on a chiseler head in room B12. She is here for treatment and evaluation of vomiting abdominal pain. She is postop day #6 from neck surgery. She has no headache or anything to suggest a DREDGEMASTER infection. She is afebrile here. She has a complaint of abdominal pain. IV access was established and she was hydrated with normal saline. She was given Toradol 10 mg IV for pain, she has had this before without difficulties. The narcotics do tend to make her more nauseated she tells me. She was also given Zofran 4 mg IV. EKG, chest x-ray, blood work, urinalysis and CAT scan were obtained. She was reassessed frequently. She did feel quite a bit better after receiving the IV Toradol and IV Zofran and IV fluids. Her chest x-ray does not show any definite infiltrates there may be some atelectasis. Her white count is significantly elevated at 20,000 however she has no fever. Her white count was actually 23,000 and when she was in the hospital so it is coming down and she has been on high-dose steroids which likely explains a lot of this elevation. Her wound does not appear to be infected. She has no significant electrolyte or metabolic abnormalities. Nothing to suggest liver gallbladder or pancreas disease. CAT scan was obtained and shows nonspecific colitis. I did talk to Dr. Pat Burr's PA. They did not enter the CSF on the surgery and she does not think this is related to the neck surgery. She did confirm that the patient did receive a lot of steroids. I talked to the patient and her at length, given her colitis and her high white count I do think it would be reasonable to keep an eye on her in the hospital with observation. She seems reluctant to do this. She says she always has a day or so after any surgery where she feels ill like this. The patient and her were given time to think about this as explained the risk and the benefits of being admitted/observed versus going home. Dr. Blount was consulted and will see in the ER for these measures Continuous cardiac monitoring: Order was placed in EMR for continuous cardiac monitoring. The patient was noted to be in normal sinus rhythm with a rate of 90 on my interpretation Impression & Plan Colitis, Abdominal pain, Vomiting, Elevated WBC count, Hx of cervical spine surgery Discharge Plan Visit Data Chief Complaint: Vomiting Stated Complaint: VOMITING, ED Provider: Rohith Ortiz Discharge Problem: Colitis, Abdominal pain, Vomiting, Elevated WBC count, Hx of cervical spine kana perez Patient Disposition: Admitted As Inpatient Discharge Instructions Interventions: ED Discharge Assessment Last Done: 08/23/20 11:02 Discharge Problem: Abdominal pain Qualifiers: Abdominal location: generalized Qualified Code(s): R10.84 - Generalized abdominal pain Vomiting Qualifiers: Vomiting type: unspecified Vomiting Intractability: non-intractable Nausea presence: with nausea Qualified Code(s): R11.2 - Nausea with vomiting, unspecified Elevated WBC count Qualifiers: Leukocytosis type: unspecified Qualified Code(s): D72.829 - Elevated white blood cell count, unspecified
[2020-08-23 07:22] LABS: Basophils # (auto) 0.02 K/uL (0-0.2); Basophils % (auto) 0.1 %; Eosinophils # (auto) 0.01 K/uL (0-0.5); Hematocrit (blood only) 46.6 % (37-47); Hemoglobin 16.1 g/dL (12.0-16.0); Immature Granulocytes # (auto) 0.08 K/uL (0.00-0.02); Immature Granulocytes % (auto) 0.4 %; Lymphocytes # (auto) 2.49 K/uL (1.2-3.4); Mean Corpuscular Hemoglobin 31.9 pg (25-34); Mean Corpuscular Hgb Conc 34.5 g/dL (32-36); Mean Corpuscular Volume 92.3 fL (80-100); Mean Platelet Volume 9.3 fL (7.4-10.4); Monocytes # (auto) 1.45 K/uL (0.11-0.59); Neutrophils # (auto) 16.69 K/uL (1.4-6.5); Neutrophils % (auto) 80.5 %; Platelet Count 369 K/uL (130-400); RDW Coefficient of Variation 12.8 % (11.5-14.5); RDW Standard Deviation 42.5 fL (36.4-46.3); Red Blood Count 5.05 M/uL (4.2-5.4); White Blood Count 20.74 K/uL (4.8-10.8)
[2020-08-23 07:29] LABS: Alanine Aminotransferase 41 U/L (12-78); Albumin Level 3.9 gm/dl (3.4-5.0); Aspartate Aminotransferase 15 U/L (15-37); BUN Creatinine Ratio 14.9 (10-20); Blood Urea Nitrogen 15 mg/dl (7-18); Calcium 10.1 mg/dl (8.5-10.1); Carbon Dioxide 25 mmol/L (21-32); Chloride 103 mmol/L (98-107); Creatinine Clr Calc Pharmacy 65.8 ml/min; Est GFR (African American) 74.8 ml/min; Est GFR (Non-African American) 64.5 ml/min; Glucose 129 mg/dl (70-99); Lipase 185 U/L (73-393); Potassium 3.9 mmol/L (3.5-5.1); Sodium 137 mmol/L (136-145)
[2020-08-23 07:33] LABS: Albumin Globulin Ratio 0.9 (0.9-2); Alkaline Phosphatase 91 U/L (45-117); Bilirubin,Total 0.9 mg/dl (0.2-1); Globulin 4.4 gm/dl (2.5-4.0); Total Protein 8.4 gm/dl (6.4-8.2); Troponin I < 0.015 ng/ml (0-0.045)
--- NOTE | 2020-08-23 07:40 | XRay Report ---
XR chest 1V portable CLINICAL HISTORY: Abdominal pain. COMPARISON STUDY: Chest CT June 06, 2018. Chest radiograph August 03, 2020. FINDINGS: Incidental note is made of postoperative findings within the cervical spine. Lung volumes a re mildly diminished. Linear left basilar opacity favors atelectasis. There is no evidence for pneumo zaire or pulmonary edema. Cardiac size is normal. Mediastinal contours are normal. IMPRESSION: Mildly diminished lung volumes with left basilar opacity suggestive of atelectasis. ACT 112: Negative or not required by law. Electronically signed by: Vishal Gutierrez M.D. 08/23/2020 7:39 AM
--- NOTE | 2020-08-23 08:03 | CT Scan Report ---
CT SCAN OF THE ABDOMEN AND PELVIS WITHOUT CONTRAST CLINICAL HISTORY: Abdominal pain and vomiting COMPARISON STUDY: December 13, 2019 TECHNIQUE: CT scan of the abdomen and pelvis was performed from the lung bases to the proximal femurs . Images are reviewed in the axial, sagittal, and coronal planes. IV contrast was not administered fo r this examination. A dose lowering technique was utilized adhering to the principles of ALARA. CT DOSE: 564.84 mGy.cm FINDINGS: Lower chest: There are mild basilar atelectatic changes. There are coronary artery calcifications. Liver: e there is a 1 cm right lobe hypodensity, similar to the prior study and likely representing a cyst Gallbladder: Unremarkable. Spleen: Normal in size and attenuation. Pancreas: Unremarkable. Adrenal glands: There is minor nodular thickening of the left adrenal gland, similar to the prior álvaro dy Kidneys: There are nonobstructing small right renal calculi measuring up to 3 mm in diameter. There i s no hydronephrosis. No ureteral or bladder calculi are visualized. Bowel: There are no transition zones to indicate bowel obstruction. There is colonic wall thickening involving the descending colon extending from the splenic flexure to the distal descending colon. The findings are indicative of a nonspecific colitis. By history the appendix is surgically absent. Peritoneum: There is no intraperitoneal free air or abdominal ascites. There is a small fat-containin g umbilical hernia Vasculature: The abdominal aorta is normal in course and caliber. Adenopathy: None. Pelvic viscera: The uterus is surgically absent Skeletal structures: No destructive osseous lesions are seen. IMPRESSION: 1. No evidence of bowel structure. No evidence of free air 2. Right-sided nephrolithiasis. No obstructing ureteral calculi identified. 3. Interval development of left-sided colonic wall thickening with infiltration of the pericolonic fa t. The findings are indicative a nonspecific colitis. ACT 112: Negative or not required by law. Electronically signed by: Shreyas Clinton M.D. 08/23/2020 8:02 AM
--- NOTE | 2020-08-23 09:57 | History & Physical Report ---
Date of Service August 23, 2020 Assessment & Plan (1) Nausea and vomiting: (2) Nonspecific colitis: This is a 50yo F with a PMH of recent posterior cervical decompression/fusion C6-C7, anxiety and tobacco use who presents with intractable nausea/vomiting since yesterday and was found to have nonspecific colitis. Afebrile, leukocytosis of 20.74 in setting of recent steroids, electrolytes wnl, lipase 185, covid PCR negative CT abd/pelvis without evidence of bowel structure. No evidence of free air. Interval development of left-sided colonic wall thickening with infiltration of the pericolonic fat. The findings are indicative a nonspecific colitis Lactic acid pending Cipro, flagyl Stool culture ordered Antiemetics, pain control (3) Cervical stenosis of spinal canal: (4) Hx of cervical spine surgery: POD #6 s/p posterior cervical decompression/fusion C6-C7 Routine ortho surgery consult placed for evaluation in setting of N/V (5) Anxiety: Lorazepam PRN (6) Tobacco use disorder: Nicotine patch ordered DVT Ppx: SQ heparin Code status: FULL PCP: Dillan Dispo: Observation med surg. Patient seen in collaboration with Dr. Blount. Please see addendum. History of Present Illness Chief Complaint: n/v Primary Care Provider: Kandis Monroe MD This is a 50yo F with a PMH of recent posterior cervical decompression/fusion C6-C7, anxiety and tobacco use who presents with intractable nausea/vomiting since yesterday. Patient is postop day 6 from cervical spine surgery and has be en feeling well until yesterday around after breakfast time, when she developed nausea and vomiting and cramping abdominal pain. Denies eating anything unusual. No other family members are ill after eating the same meal. Continued to feel nauseated throughout the day with multiple episodes of diarrhea. Had 1 bout of bright red blood per rectum with diarrhea that has not recurred. Has mild headache at this time and soreness around surgical site from pressure. Denies any fever or chills. No chest pain or shortness of breath. No pain or paresthesias in bilateral upper extremity. Denies dysuria or constipation. Has had colitis in the past as well as having diarrhea in the setting of taking a few doses of medications like Colace and MiraLAX previously. Has taken a few doses of [place] for postoperative pain over the past week but otherwise Tylenol. Allergies Allergy/AdvReac Type Severity Reaction Status Date / Time oxycodone Allergy Severe Shortness Verified 08/23/20 08:39 of Breath Home Medications Medication Instructions Recorded Confirmed Type lorazepam 0.5 mg PO DAILY PRN 02/13/18 08/23/20 History Ibuprofen PM 1 cap PO HS 07/14/20 08/23/20 History hydrocodone-acetaminophen See Rx Instructions .ROUTE 08/17/20 08/23/20 Rx .COMPLEX PRN #30 tab ondansetron HCl [Zofran] 4 mg PO Q8H PRN #20 tab 08/19/20 08/23/20 Rx Past Med/Surg History Medical History (Updated 08/23/20 @ 10:58 by Olivia Gomez PA-C) Anxiety Atypical chest pain 05/2018 S/P UNREMARKABLE EKG/NEGATIVE TROPONINS- MUSCULAR ETIOLOGY SUSPECTED; NO FURTHER EPISODES SINCE LIDOCAINE PATCH X 1 Degenerative disc disease History of ovarian cyst left side Kidney stones Obesity Osteoarthritis Tobacco use disorder Surgical History History of bunionectomy LT History of carpal tunnel release RT History of elbow surgery RT History of mandibular surgery repair of fracture R/T INJURY AT AGE 20 - NO ROM ISSUES History of neck surgery JUNE 2018 > FUSION C6-7> ROM IS WNL History of oophorectomy, unilateral History of partial hysterectomy History of repair of rotator cuff RT X 2 History of tooth extraction Family History Other Heart disease Social History Smoking Status: Current every day smoker Tobacco Type: Cigarettes packs per day: 0.5; Cigarettes Per Day: 5-6; Second Hand Exposure: Yes; Hx Alcohol Use: Yes Alcohol type: beer Hx Substance Use: No Preferred Language: Austrian Communication Ability: Effective Crystal Report Developer Required: No Beliefs That Will Affect Care: None marital status: Current Living Situation: Spouse Feels Safe at Home: Yes Assistive Devices: Brace/Splint/Immobilizer, Glasses and Walker Review of Systems Review of Systems: At least ten systems reviewed and negative except as noted in the HPI. Physical Exam Physical Exam: General Appearance: WD/WN, vitals as above, NAD, sitting up in bed, appears acutely ill, conversing easily Head: normocephalic, atraumatic Eyes: normal inspection, PERRL, conjunctivae normal, anicteric sclerae ENT: external ear and nose normal, oropharynx normal Neck: normal visual inspection, trachea midline, no thyromegaly. + Posterior neck with well-healing vertical sutures. Small amount of edema and erythema noted on right side of suture line. No drainage Respiratory: normal respiratory effort, lungs clear to auscultation, no wheeze, rales, rhonchi. No accessory muscle use Cardiovascular: regular rate, rhythm, no murmur, normal peripheral pulses, no BLE edema. Vessels: no JVD Chest: normal inspection of chest Abdomen/GI: normal bowel sounds, soft, nontender, no hepatosplenomegaly Extremities/Musculoskeletal: no cyanosis or clubbing, extremities motor strength 5/5 Neurologic: PERRL, EOMI, accommodation nl, no face palsy, no dysarthria, CN's II-XI intact bilaterally and moves all extremities Psychiatric: A+Ox3, euthymic affect Skin: no rashes, normal color, warm/dry Results & Data Results & Data ([facility]) Vital Signs (Past 12 Hours) Vital Signs Temp Pulse Pulse Resp BP BP Pulse Ox 08/23/20 08:13 94 H 18 147/91 H 97 08/23/20 07:05 99 08/23/20 06:27 101 H 18 154/95 H 100 08/23/20 06:17 36.6 C 116 H 20 142/82 H 99 Laboratory Results Short CBC 08/23/20 Range/Units 06:43 WBC 20.74 H (4.8-10.8) K/uL Hgb 16.1 H (12.0-16.0) g/dL Hct 46.6 (37-47) % Plt Count 369 (130-400) K/uL BMP 08/23/20 06:43 Sodium 137 Potassium 3.9 Chloride 103 Carbon Dioxide 25 BUN 15 Creatinine 1.02 Glucose 129 H Calcium 10.1 Cardiac Enzymes 08/23/20 Range/Units 06:43 Troponin I < 0.015 (0-0.045) ng/ml Liver Function 08/23/20 Range/Units 06:43 Total Bilirubin 0.9 (0.2-1) mg/dl AST 15 (15-37) U/L ALT 41 (12-78) U/L Alkaline Phosphatase 91 (45-117) U/L Albumin 3.9 (3.4-5.0) gm/dl Diagnostic Findings Abdomen/Pelvis CT 08/23/20 07:00 CT SCAN OF THE ABDOMEN AND PELVIS WITHOUT CONTRAST CLINICAL HISTORY: Abdominal pain and vomiting COMPARISON STUDY: December 13, 2019 TECHNIQUE: CT scan of the abdomen and pelvis was performed from the lung bases to the proximal femurs. Images are reviewed in the axial, sagittal, and coronal planes. IV contrast was not administered for this examination. A dose lowering technique was utilized adhering to the principles of ALARA. CT DOSE: 564.84 mGy.cm FINDINGS: Lower chest: There are mild basilar atelectatic changes. There are coronary artery calcifications. Liver: e there is a 1 cm right lobe hypodensity, similar to the prior study and likely representing a cyst Gallbladder: Unremarkable. Spleen: Normal in size and attenuation. Pancreas: Unremarkable. Adrenal glands: There is minor nodular thickening of the left adrenal gland, similar to the prior study Kidneys: There are nonobstructing small right renal calculi measuring up to 3 mm in diameter. There is no hydronephrosis. No ureteral or bladder calculi are visualized. Bowel: There are no transition zones to indicate bowel obstruction. There is colonic wall thickening involving the descending colon extending from the splenic flexure to the distal descending colon. The findings are indicative of a nonspecific colitis. By history the appendix is surgically absent. Peritoneum: There is no intraperitoneal free air or abdominal ascites. There is a small fat-containing umbilical hernia Vasculature: The abdominal aorta is normal in course and caliber. Adenopathy: None. Pelvic viscera: The uterus is surgically absent Skeletal structures: No destructive osseous lesions are seen. IMPRESSION: 1. No evidence of bowel structure. No evidence of free air 2. Right-sided nephrolithiasis. No obstructing ureteral calculi identified. 3. Interval development of left-sided colonic wall thickening with infiltration of the pericolonic fat. The findings are indicative a nonspecific colitis. ACT 112: Negative or not required by law. Electronically signed by: Shreyas Clinton M.D. 08/23/2020 8:02 AM Chest X-Ray 08/23/20 07:00 XR chest 1V portable CLINICAL HISTORY: Abdominal pain. COMPARISON STUDY: Chest CT June 06, 2018. Chest radiograph August 03, 2020. FINDINGS: Incidental note is made of postoperative findings within the cervical spine. Lung volumes are mildly diminished. Linear left basilar opacity favors atelectasis. There is no evidence for pneumonia or pulmonary edema. Cardiac size is normal. Mediastinal contours are normal. IMPRESSION: Mildly diminished lung volumes with left basilar opacity suggestive of atelectasis. ACT 112: Negative or not required by law. Electronically signed by: Vishal Gutierrez M.D. 08/23/2020 7:39 AM Code Status & VTE Plan VTE Prophylaxis Plan VTE Prophylaxis will be ordered: Yes Supervising Physician Co-Signing Physician Notes Attending addendum: The patient was seen and examined in the medical floor She is a status post cervical decompression and fusion POD #6 Has been complaining of nausea, vomiting, abdominal pain and diarrhea since about yesterday Denies any fever and/or chills Has been feeling better since admission On examination Lying in bed comfortably Anxious but hemodynamically stable Chestclear to auscultate bilaterally HeartS1-S2, regular Abdomensoft, mildly tender right lower quadrant without guarding and rigidity, bowel sounds present Extremitiestrace edema bilaterally Admission labs and imaging studies reviewed Has nonspecific colitis and started on intravenous Cipro and Flagyl We will get Ortho evaluation for recent cervical spine surgery with some area of redness at the incision site Agree with assessment and plan as outlined above by GRAYSON Bynum DR
[2020-08-23] MEDS ORDERED: CIPROFLOXACIN / D5W 400 MG/200 ML BAG IV STA (10:00)
[2020-08-23] MEDS ORDERED: metroNIDAZOLE 500 MG/100 ML BAG IV STA (10:01)
[2020-08-23] MEDS ORDERED: CIPROFLOXACIN CONSULT ACTIVE PRN (10:10)
[2020-08-23] MEDS ORDERED: ACETAMINOPHEN 1,000 MG/100 ML VIAL IV STA (10:21)
[2020-08-23] MEDS ORDERED: NICOTINE 7 MG/24 HR TDSY TD STA (10:44)
[2020-08-23] MEDS ORDERED: LORazepam 0.5 MG TAB PO PRN (11:49)
[2020-08-23] MEDS ORDERED: SODIUM CHLORIDE 0.9% 1000ML 1,000 ML IV SCH (12:00)
[2020-08-23] MEDS: HEPARIN SOD 5,000 UNIT/0.5 ML VIAL SQ SCH ×2 (13:21→22:20)
[2020-08-23] MEDS ORDERED: ALUMINUM/MAGNESIUM SUSP 30 ML UDC PO PRN (13:35)
[2020-08-23] MEDS: PANTOprazole 40 MG TAB PO SCH (14:06)
[2020-08-23 15:45] LABS: Appearance Urine Cloudy (Clear); Bacteria Urine Automated Negative (Negative); Bilirubin Urine Negative (Negative); Blood Urine 2+ (Negative); Color Urine Yellow; Epithelial Cell Urine Auto >30 /lpf (0-5); Glucose Urine UA Negative (Negative); Ketones Urine Trace (Negative); Leukocyte Esterase Urine Negative (Negative); Nitrite Urine Negative (Negative); RBC Urine Automated >30 /hpf (0-4); Urobilinogen Urine Negative (Negative); pH Urine >= 9.0 (4.5-7.5)
[2020-08-23 15:50] LABS: Protein Urine 1+ (Negative)
[2020-08-23] MEDS: KETOROLAC TROMETHAMINE 15 MG/ML VIAL IV PRN ×2 (16:29→22:15)
--- NOTE | 2020-08-23 18:54 | Electrocardiogram Report ---
Test Reason : Blood Pressure : / mmHG Vent. Rate : 092 BPM Atrial Rate : 092 BPM P-R Int : 144 ms QRS Dur : 082 ms QT Int : 344 ms P-R-T Axes : 058 039 049 degrees QTc Int : 425 ms Normal sinus rhythm Possible Left atrial enlargement Borderline ECG When compared with ECG of 03-AUG-2020 11:31, No significant change was found Confirmed by Winston Lopez ([id number]) on 08/23/2020 6:53:48 PM Referred By: REFERRED SELF Confirmed By:Seven Lopez
[2020-08-23] MEDS: metroNIDAZOLE 500 MG/100 ML BAG IV SCH (19:27)
[2020-08-23] MEDS: CIPROFLOXACIN / D5W 400 MG/200 ML BAG IV SCH (23:12)
[2020-08-24] MEDS: KETOROLAC TROMETHAMINE 15 MG/ML VIAL IV PRN ×2 (04:47→10:43)
[2020-08-24] MEDS: metroNIDAZOLE 500 MG/100 ML BAG IV SCH ×3 (04:48→19:54)
[2020-08-24] MEDS: HEPARIN SOD 5,000 UNIT/0.5 ML VIAL SQ SCH ×3 (06:05→20:55)
[2020-08-24 06:51] LABS: Hemoglobin 12.6 g/dL (12.0-16.0); Mean Corpuscular Hemoglobin 31.4 pg (25-34); Mean Corpuscular Hgb Conc 33.2 g/dL (32-36); Mean Corpuscular Volume 94.8 fL (80-100); Mean Platelet Volume 9.3 fL (7.4-10.4); Platelet Count 301 K/uL (130-400); Red Blood Count 4.01 M/uL (4.2-5.4); White Blood Count 17.83 K/uL (4.8-10.8)
[2020-08-24 07:12] LABS: Calcium 8.3 mg/dl (8.5-10.1); Creatinine Clr Calc Pharmacy 81.7 ml/min; Est GFR (African American) 97.4 ml/min; Potassium 3.9 mmol/L (3.5-5.1)
[2020-08-24] MEDS: PANTOprazole 40 MG TAB PO SCH (07:20)
[2020-08-24] MEDS: NICOTINE 7 MG/24 HR TDSY TD SCH (07:20)
--- NOTE | 2020-08-24 09:30 | Orthopedic Consultation ---
Date of Consultation August 24, 2020 Assessment & Plan (1) Hx of cervical spine surgery: This time she is healing appropriately. I will obtain some x-rays to verify alignment of instrumentation. Present on Admission?: Yes History of Present Illness Reason for Consultation: Nausea vomiting Attending Physician: Jazmin Blount MD History of Present Illness This patient is status post posterior cervical decompression fusion. She has been doing well but postop day 4 had his significant episode of nausea vomiting secondary to obstipation. She is much better at this time. She states her arm symptoms are markedly improved. No significant neck pain. Allergies Allergy/AdvReac Type Severity Reaction Status Date / Time oxycodone Allergy Severe Shortness Verified 08/23/20 08:39 of Breath Home Medications Medication Instructions Recorded Confirmed Type lorazepam 0.5 mg PO DAILY PRN 02/13/18 08/23/20 History Ibuprofen PM 1 cap PO HS 07/14/20 08/23/20 History hydrocodone-acetaminophen See Rx Instructions .ROUTE 08/17/20 08/23/20 Rx .COMPLEX PRN #30 tab ondansetron HCl [Zofran] 4 mg PO Q8H PRN #20 tab 08/19/20 08/23/20 Rx Patient History Medical History (Updated 08/23/20 @ 13:17 by Rohith Ortiz MD) Anxiety Atypical chest pain 05/2018 S/P UNREMARKABLE EKG/NEGATIVE TROPONINS- MUSCULAR ETIOLOGY SUSPECTED; NO FURTHER EPISODES SINCE LIDOCAINE PATCH X 1 Degenerative disc disease History of ovarian cyst left side Kidney stones Obesity Osteoarthritis Tobacco use disorder Surgical History History of bunionectomy LT History of carpal tunnel release RT History of elbow surgery RT History of mandibular surgery repair of fracture R/T INJURY AT AGE 20 - NO ROM ISSUES History of neck surgery JUNE 2018 > FUSION C6-7> ROM IS WNL History of oophorectomy, unilateral History of partial hysterectomy History of repair of rotator cuff RT X 2 History of tooth extraction Family History Other Heart disease Social History Smoking Status: Current every day smoker Tobacco Type: Cigarettes packs per day: 0.5; Cigarettes Per Day: 5-6; Second Hand Exposure: Yes; Hx Alcohol Use: No Hx Substance Use: No Preferred Language: Yakut Communication Ability: Effective Director Prison Required: No Beliefs That Will Affect Care: None marital status: Current Living Situation: Spouse Other Information That Helps Us Care for You: No Feels Safe at Home: Yes Safety Concerns: Feels Safe At This Time Assistive Devices: Glasses Physical Exam Physical Exam: Patient has good strength testing. Incision is clean dry and intact. There is minimal to no swelling. Results & Data ([facility]) Vital Signs (Past 12 Hours) Vital Signs Temp Pulse Pulse Resp BP BP Pulse Ox 08/24/20 07:31 36.8 C 78 16 112/78 95 08/23/20 23:10 36.9 C 80 18 114/79 98
--- NOTE | 2020-08-24 09:44 | XRay Report ---
CERVICAL SPINE 3 VIEWS HISTORY: Postop COMPARISON: None. FINDINGS: The cervical spine is visualized from C1 through the superior endplate of T1. There is no f racture. No subluxation. There is loss of normal cervical lordosis. Anterior and posterior metallic screws and fixating plates are seen at the C6-C7 level associated wit h C6-7 intervertebral disc space narrowing. Prevertebral soft tissues and the atlantodens interval ar e intact. IMPRESSION: 1. Orthopedic hardware within C6-C7 level. ACT 112: Positive. There are findings on this exam that require communication between the performing entity and the patient following Patient Test Result Information Act ([place] Act 112) guidelines. Electronically signed by: Marlene Hannon DO 08/24/2020 3:38 PM
--- NOTE | 2020-08-24 11:50 | Hospitalist Progress Note ---
Date of Service August 24, 2020 Assessment & Plan (1) Nausea and vomiting: (2) Nonspecific colitis: This is a 50yo F with a PMH of recent posterior cervical decompression/fusion C6-C7, anxiety and tobacco use who presents with intractable nausea/vomiting since yesterday and was found to have nonspecific colitis. Afebrile, leukocytosis of 20.74 in setting of recent steroids, electrolytes wnl, lipase 185, covid PCR negative CT abd/pelvis without evidence of bowel structure. No evidence of free air. Interval development of left-sided colonic wall thickening with infiltration of the pericolonic fat. The findings are indicative a nonspecific colitis No evidence of sepsis Has been on intravenous Cipro and flagyl White count is improving and the patient is clinically much better Stool culture ordered -not collected Antiemetics, pain control Patient is clinically much better and will start diet as tolerated (3) Cervical stenosis of spinal canal: (4) Hx of cervical spine surgery: POD #6 s/p posterior cervical decompression/fusion C6-C7 Routine ortho surgery consult placed for evaluation in setting of N/V Appreciate orthopedic input and recommendation We will have imaging studies of the cervical spine (5) Anxiety: Lorazepam PRN (6) Tobacco use disorder: Nicotine patch ordered DVT Ppx: SQ heparin Code status: FULL PCP: Dillan Dispo: Observation med surg. Clinically much better Like to be discharged tomorrow Admission and Anticipated Discharge Date Admission Date: August 23, 2020 Subjective 08/24/2020 The patient was seen and examined in medical floor She has been feeling a lot better and does not have any significant abdominal pain and no nausea and or vomiting Her bowel has not moved yet No pain in the neck and does not have any fever and/or chills Review of Systems Review of Systems: All systems reviewed and are unremarkable except as noted below Physical Exam Physical Exam: Lying in bed comfortably Constitutional: average body habitus; not ill appearing Eyes: PERRL, conjunctivae normal, anicteric sclerae ENMT: external ear and nose normal, oropharynx normal Neck: trachea midline, no thyromegaly Respiratory: no respiratory distress Auscultation: lungs clear to auscultation bilaterally Cardiovascular: Rate/Rhythm: regular rate and regular rhythm Heart Sounds: no murmur Extremities: no edema Gastrointestinal (Abdomen): Inspection/Auscultation: normal bowel sounds; abdomen not distended Percussion/Palpation: + abdomen tender (Mildly tender lower quadrants more on the right than the left) and abdomen soft Musculoskeletal: Does not have any acute arthritis involving any of the joint Neurologic: Alert, awake and oriented x3 Lymphatic: no cervical or axillary lymphadenopathy Results & Data Results & Data ([facility]) Vital Signs (Past 12 Hours) Vital Signs Temp Pulse Resp BP Pulse Ox 08/24/20 11:30 37.3 C 93 H 18 104/72 94 08/24/20 07:31 36.8 C 78 16 112/78 95 Laboratory Results Short CBC 08/24/20 Range/Units 05:27 WBC 17.83 H (4.8-10.8) K/uL Hgb 12.6 D (12.0-16.0) g/dL Hct 38.0 (37-47) % Plt Count 301 (130-400) K/uL BMP 08/24/20 05:27 Sodium 140 Potassium 3.9 Chloride 108 H Carbon Dioxide 28 BUN 13 Creatinine 0.82 Glucose 101 H Calcium 8.3 L D Urine 08/23/20 Range/Units 06:43 Urine Color Yellow Urine Appearance Cloudy A (Clear) Urine pH >= 9.0 H (4.5-7.5) Ur Specific [place] 1.020 (1.000-1.030) Urine Protein 1+ H (Negative) Urine Glucose (UA) Negative (Negative) Medications Administered Current Inpatient Medications Acetaminophen (Acetaminophen 500 Mg Tab) 1,000 mg PO Q8H PRN PRN Reason: Pain or Fever Stop: 09/22/20 11:48 Al Hydrox/Mg Hydrox/Simethicone (Aluminum/Magnesium Susp 30 Ml Udc) 15 ml PO Q6H PRN PRN Reason: Dyspepsia Stop: 09/22/20 13:34 Last Admin: 08/23/20 14:06 Dose: 15 ml Documented by: Heparin Sodium (Porcine) (Heparin Sod 5,000 Unit/0.5 Ml Vial) 5,000 units SQ Q8 [facility] Stop: 09/22/20 13:59 Last Admin: 08/24/20 06:05 Dose: Not Given Documented by: Metronidazole (Flagyl) 500 mg in 100 mls @ 100 mls/hr IV Q8H [facility]; Protocol Stop: 09/02/20 19:59 Last Infusion: 08/24/20 06:05 Dose: Infused Documented by: Ciprofloxacin (Cipro / D5w) 400 mg in 200 mls @ 100 mls/hr IV Q12H [facility]; Protocol Stop: 09/02/20 00:00 Last Infusion: 08/24/20 01:17 Dose: Infused Documented by: Ketorolac Tromethamine (Ketorolac Tromethamine 15 Mg/Ml Vial) 15 mg IV Q6H PRN PRN Reason: Pain Stop: 08/25/20 09:54 Last Admin: 08/24/20 10:43 Dose: 15 mg Documented by: Lorazepam (Lorazepam 0.5 Mg Tab) 0.5 mg PO DAILY PRN PRN Reason: Anxiety Stop: 09/22/20 11:48 Miscellaneous (Remove Nicoderm Patch) 1 ea N/A DAILY@0859 [facility] Stop: 09/23/20 08:58 Last Admin: 08/24/20 07:21 Dose: 1 ea Documented by: Nicotine (Nicotine 7 Mg/24 Hr Tdsy) 7 mg TD QAM [facility] Stop: 09/23/20 08:59 Last Admin: 08/24/20 07:20 Dose: 7 mg Documented by: Pantoprazole Sodium (Pantoprazole 40 Mg Tab) 40 mg PO QAM [facility] Stop: 09/22/20 13:59 Last Admin: 08/24/20 07:20 Dose: 40 mg Documented by:
[2020-08-24] MEDS: CIPROFLOXACIN / D5W 400 MG/200 ML BAG IV SCH ×2 (11:56→23:40)
[2020-08-24] MEDS: ACETAMINOPHEN 500 MG TAB PO PRN (16:47)
[2020-08-25] MEDS: ACETAMINOPHEN 500 MG TAB PO PRN ×2 (00:47→15:51)
[2020-08-25] MEDS: metroNIDAZOLE 500 MG/100 ML BAG IV SCH (02:47)
[2020-08-25] MEDS: HEPARIN SOD 5,000 UNIT/0.5 ML VIAL SQ SCH ×3 (05:00→20:02)
[2020-08-25] MEDS: PANTOprazole 40 MG TAB PO SCH (08:33)
[2020-08-25] MEDS: NICOTINE 7 MG/24 HR TDSY TD SCH (08:33)
[2020-08-25] MEDS: KETOROLAC TROMETHAMINE 15 MG/ML VIAL IV PRN (09:41)
--- NOTE | 2020-08-25 12:16 | Hospitalist Progress Note ---
Date of Service August 25, 2020 Assessment & Plan (1) Nausea and vomiting: (2) Nonspecific colitis: This is a 50yo F with a PMH of recent posterior cervical decompression/fusion C6-C7, anxiety and tobacco use who presents with intractable nausea/vomiting since yesterday and was found to have nonspecific colitis. Afebrile, leukocytosis of 20.74 in setting of recent steroids, electrolytes wnl, lipase 185, covid PCR negative CT abd/pelvis without evidence of bowel structure. No evidence of free air. Interval development of left-sided colonic wall thickening with infiltration of the pericolonic fat. The findings are indicative a nonspecific colitis No evidence of sepsis Has been on intravenous Cipro and flagyl White count is improving and the patient is clinically much better Stool culture ordered -not collected Antiemetics, pain control Clinically little worse today with increasing abdominal discomfort Has not had any bowel movement We will change the IV antibiotic to oral and was advised to increase ambulation Likely discharge tomorrow (3) Cervical stenosis of spinal canal: (4) Hx of cervical spine surgery: POD #6 s/p posterior cervical decompression/fusion C6-C7 Routine ortho surgery consult placed for evaluation in setting of N/V Appreciate orthopedic input and recommendation Cervical spine x-ray did show hardware within C6-C7 level (5) Anxiety: Lorazepam PRN (6) Tobacco use disorder: Nicotine patch ordered DVT Ppx: SQ heparin Code status: FULL PCP: Dillan Dispo: Observation med surg. Antibiotics are changed to oral Increase more ambulation Likely discharge tomorrow Admission and Anticipated Discharge Date Admission Date: August 23, 2020 Subjective 08/24/2020 The patient was seen and examined in medical floor She has been feeling a lot better and does not have any significant abdominal pain and no nausea and or vomiting Her bowel has not moved yet No pain in the neck and does not have any fever and/or chills 08/25/2020 Patient was seen and examined in medical floor She has been complaining of abdominal discomfort and has not had a bowel movement She denies any nausea and or vomiting Her neck pain is much improved Review of Systems Review of Systems: All systems reviewed and are unremarkable except as noted below Gastrointestinal: + bloating; no nausea and no vomiting Physical Exam Physical Exam: Sitting on a chair without any acute distress Constitutional: average body habitus; not ill appearing Eyes: PERRL, conjunctivae normal, anicteric sclerae ENMT: external ear and nose normal, oropharynx normal Neck: trachea midline, no thyromegaly Respiratory: no respiratory distress Auscultation: lungs clear to auscultation bilaterally Cardiovascular: Rate/Rhythm: regular rate and regular rhythm Heart Sounds: no murmur Extremities: no edema Gastrointestinal (Abdomen): Inspection/Auscultation: normal bowel sounds; abdomen not distended Percussion/Palpation: + abdomen tender (Mildly tender lower quadrants more on the right than the left) and abdomen soft Musculoskeletal: No acute arthritis in any joint Lymphatic: no cervical or axillary lymphadenopathy Results & Data Results & Data ([facility]) Vital Signs (Past 12 Hours) Vital Signs Temp Pulse Resp BP Pulse Ox 08/25/20 07:35 36.8 C 63 16 141/86 H 99 Medications Administered Current Inpatient Medications Acetaminophen (Acetaminophen 500 Mg Tab) 1,000 mg PO Q8H PRN PRN Reason: Pain or Fever Stop: 09/22/20 11:48 Last Admin: 08/25/20 00:47 Dose: 1,000 mg Documented by: Al Hydrox/Mg Hydrox/Simethicone (Aluminum/Magnesium Susp 30 Ml Udc) 15 ml PO Q6H PRN PRN Reason: Dyspepsia Stop: 09/22/20 13:34 Last Admin: 08/23/20 14:06 Dose: 15 ml Documented by: Ciprofloxacin (Ciprofloxacin 500 Mg Tab) 500 mg PO BID [facility] Stop: 09/02/20 20:59 Heparin Sodium (Porcine) (Heparin Sod 5,000 Unit/0.5 Ml Vial) 5,000 units SQ Q8 [facility] Stop: 09/22/20 13:59 Last Admin: 08/25/20 05:00 Dose: Not Given Documented by: Lorazepam (Lorazepam 0.5 Mg Tab) 0.5 mg PO DAILY PRN PRN Reason: Anxiety Stop: 09/22/20 11:48 Metronidazole (Metronidazole 500 Mg Tab) 500 mg PO BID [facility] Stop: 09/02/20 20:59 Miscellaneous (Remove Nicoderm Patch) 1 ea N/A DAILY@0859 [facility] Stop: 09/23/20 08:58 Last Admin: 08/25/20 08:33 Dose: 1 ea Documented by: Nicotine (Nicotine 7 Mg/24 Hr Tdsy) 7 mg TD QAM [facility] Stop: 09/23/20 08:59 Last Admin: 08/25/20 08:33 Dose: 7 mg Documented by: Pantoprazole Sodium (Pantoprazole 40 Mg Tab) 40 mg PO [facility] Stop: 09/22/20 13:59 Last Admin: 08/25/20 08:33 Dose: 40 mg Documented by:
[2020-08-25] MEDS: CIPROFLOXACIN 500 MG TAB PO SCH (20:02)
[2020-08-25] MEDS: metroNIDAZOLE 500 MG TAB PO SCH (20:02)
[2020-08-26] MEDS: ACETAMINOPHEN 500 MG TAB PO PRN ×2 (00:58→14:09)
[2020-08-26] MEDS: HEPARIN SOD 5,000 UNIT/0.5 ML VIAL SQ SCH ×2 (05:15→13:00)
[2020-08-26] MEDS: NICOTINE 7 MG/24 HR TDSY TD SCH (08:41)
[2020-08-26] MEDS: CIPROFLOXACIN 500 MG TAB PO SCH (08:41)
[2020-08-26] MEDS: PANTOprazole 40 MG TAB PO SCH (08:41)
[2020-08-26] MEDS: metroNIDAZOLE 500 MG TAB PO SCH (08:41)
--- NOTE | 2020-08-26 12:58 | Hospitalist Progress Note ---
Date of Service August 26, 2020 Assessment & Plan (1) Nausea and vomiting: (2) Nonspecific colitis: Patient is a 50 yr female with H/O recent posterior cervical decompression/fusion C6-C7, anxiety and tobacco use who presents with intractable nausea/vomiting since yesterday and was found to have nonspecific colitis. Nonspecific colitis -CT ABD: No evidence of bowel structure. No evidence of free air. Right-sided nephrolithiasis. No obstructing ureteral calculi identified. Interval deve lopment of left-sided colonic wall thickening with infiltration of the pericolonic fat. The findings are indicative a nonspecific colitis. -Transition IV Cipro, Flagyl to oral antibiotics Received IV fluids Pain resolved Leukocytosis trending down Denies abdominal pain today (3) Cervical stenosis of spinal canal: (4) Hx of cervical spine surgery: POD #7 s/p posterior cervical decompression/fusion C6-C7 Cervical Spine X ray: Orthopedic hardware within C6-C7 level. Appreciate orthopedics input Advised to follow-up daily as outpatient upon discharge (5) Anxiety: Lorazepam PRN (6) Tobacco use disorder: Nicotine patch ordered DVT Px: SQ heparin Code status: FULL CODE Admission and Anticipated Discharge Date Admission Date: August 25, 2020 Subjective Patient is seen and examined bedside Sitting in chair comfortably during my encounter Offers no complaints today Denies any abd pain or neck pain at surgical site Also denies chest pain, shortness of breath, dizziness, nausea offers no other complaints Review of Systems Review of Systems: All systems reviewed & are unremarkable except as noted in HPI & below Physical Exam Physical Exam: Physical Exam: Vitals signs as noted above General Appearance:Obese, no apparent distress Head: normocephalic, Atraumatic Eyes: normal inspection, EOMI Neck: supple, Trachea midline, Posterior-Surgical site in dressing Respiratory/Chest: Normal breath sounds, CTA Cardiovascular: S1, S2, No murmur Abdomen/GI:Soft, Non tender, Bowel sounds present Extremities/Musculoskeletal:normal inspection, no edema Neurologic/Psych:AAOX3, grossly no focal neurological deficits Skin: normal color, warm Results & Data Results & Data ([facility]) Vital Signs (Past 12 Hours) Vital Signs Temp Pulse Resp BP Pulse Ox 08/26/20 07:31 36.6 C 68 16 109/74 96
--- NOTE | 2020-08-26 13:36 | Discharge Summary ---
Date of Service August 26, 2020 Admission HPI Per Admitting Provider This is a 50yo F with a PMH of recent posterior cervical decompression/fusion C6-C7, anxiety and tobacco use who presents with intractable nausea/vomiting since yesterday. Patient is postop day 6 from cervical spine surgery and has been feeling well until yesterday around after breakfast time, when she developed nausea and vomiting and cramping abdominal pain. Denies eating anything unusual. No other family members are ill after eating the same meal. Continued to feel nauseated throughout the day with multiple episodes of diarrhea. Had 1 bout of bright red blood per rectum with diarrhea that has not recurred. Has mild headache at this time and soreness around surgical site from pressure. Denies any fever or chills. No chest pain or shortness of breath. No pain or paresthesias in bilateral upper extremity. Denies dysuria or constipation. Has had colitis in the past as well as having diarrhea in the setting of taking a few doses of medications like Colace and MiraLAX previously. Has taken a few doses of Jennings for postoperative pain over the past week but otherwise Tylenol. Admission Exam Per Admitting Provider Physical Exam Physical Exam: General Appearance: WD/WN, vitals as above, NAD, sitting up in bed, appears acutely ill, conversing easily Head: normocephalic, atraumatic Eyes: normal inspection, PERRL, conjunctivae normal, anicteric sclerae ENT: external ear and nose normal, oropharynx normal Neck: normal visual inspection, trachea midline, no thyromegaly. + Posterior neck with well-healing vertical sutures. Small amount of edema and erythema noted on right side of suture line. No drainage Respiratory: normal respiratory effort, lungs clear to auscultation, no wheeze, rales, rhonchi. No accessory muscle use Cardiovascular: regular rate, rhythm, no murmur, normal peripheral pulses, no BLE edema. Vessels: no JVD Chest: normal inspection of chest Abdomen/GI: normal bowel sounds, soft, nontender, no hepatosplenomegaly Extremities/Musculoskeletal: no cyanosis or clubbing, extremities motor strength 5/5 Neurologic: PERRL, EOMI, accommodation nl, no face palsy, no dysarthria, CN's II-XI intact bilaterally and moves all extremities Psychiatric: A+Ox3, euthymic affect Skin: no rashes, normal color, warm/dry Principal Diagnosis Colitis History of cervical spine surgery Discharge Data Allergies Allergy/AdvReac Type Severity Reaction Status Date / Time oxycodone Allergy Severe Shortness Verified 08/23/20 08:39 of Breath Consultations 08/23/20 08:52 ED Decision to Admit Stat 08/23/20 11:49 Consult Orthopedic Surgery Routine Procedures Performed CT abd/pelvis No evidence of bowel structure. No evidence of free air. Right- sided nephrolithiasis. No obstructing ureteral calculi identified. Interval development of left-sided colonic wall thickening with infiltration of the pericolonic fat. The findings are indicative a nonspecific colitis. Cervical Spine X ray: Orthopedic hardware within C6-C7 level. Ordered Studies 08/23/20 07:00 CT abd pelvis wo con Stat Hospital Course (1) Nausea and vomiting: (2) Nonspecific colitis: Patient is a 50 yr female with H/O recent posterior cervical decompression/fusion C6-C7, anxiety and tobacco use who presents with intractable nausea/vomiting since yesterday and was found to have nonspecific colitis. Nonspecific colitis -CT ABD: No evidence of bowel structure. No evidence of free air. Right-sided nephrolithiasis. No obstructing ureteral calculi identified. Interval development of left-sided colonic wall thickening with infiltration of the pericolonic fat. The findings are indicative a nonspecific colitis. -Transition IV Cipro, Flagyl to oral antibiotics Received IV fluids Pain resolved Leukocytosis trending down Denies abdominal pain today (3) Cervical stenosis of spinal canal: (4) Hx of cervical spine surgery: POD #7 s/p posterior cervical decompression/fusion C6-C7 Cervical Spine X ray: Orthopedic hardware within C6-C7 level. Appreciate orthopedics input Advised to follow-up daily as outpatient upon discharge (5) Anxiety: Lorazepam PRN (6) Tobacco use disorder: Nicotine patch ordered DVT Px: SQ heparin Code status: FULL CODE Total Time Total Time Spent Total Time Spent (In Minutes): 39 minutes Total Time Includes: Examination of the Patient, Discharge Planning, Medication Reconciliation, Communication With Other Providers and Other Discharge Plan Discharge Items Patient Disposition: Home - Self-Care Reason For Visit: NAUSEA/VOMITING Discharge Diagnosis: Colitis History of cervical spine surgery Activity: Per Instructions section Exercise/Sports: Gradually increase as tolerated Non-emergency contact: Primary Care Provider and Surgeon Call non-emergency contact if: you have any medication questions, your symptoms worsen, your pain is not controlled, your pain is concerning for you and you have a fever Follow-up/Referrals: Kandis Slater MD [Primary Care Provider] - 08/27/20 11:40 am (Date & Time 08/27/2020 11:40 AM Provider Kandis Monroe MD Department Family Medicine [facility] ) Diet: Heart Healthy Addtl Attending Provider Instructions: Follow-up with your primary care physician Dr. Philipp Monroe on 08/27/2020 11:40 AM Follow-up with your orthopedic surgeon Dr. Stewart as recommended Complete antibiotic course--ciprofloxacin, metronidazole as prescribed Seek immediate medical attention if your symptoms reoccur or worsen Please take all medications as instructed on discharge list below. Please call if you have any questions or problems. You can reach a [facility] hospitalist on duty at [facility] 24 hours a day by calling [phone] Pending Studies at Discharge: No Stand-Alone Forms: My [facility], Opioid Pain Management, Smoking Cessation Medications and DC Order Prescriptions: New ciprofloxacin HCl 500 mg Tablet 500 mg PO BID Qty: 8 RF: 0 metronidazole 500 mg Tablet 500 mg PO BID 4 Days Qty: 8 RF: 0 pantoprazole 40 mg Tablet,Delayed Release (Dr/Ec) 40 mg PO QAM Qty: 10 RF: 0 Continued lorazepam 0.5 mg tablet 0.5 mg PO DAILY PRN (Reason: Anxiety) RF: 0 Ibuprofen PM 200-25 mg Capsule 1 cap PO HS RF: 0 hydrocodone-acetaminophen 5-325 mg tablet See Rx Instructions .ROUTE .COMPLEX PRN (Reason: pain) Qty: 30 RF: 0 ondansetron HCl [Zofran] 4 mg tablet 4 mg PO Q8H PRN (Reason: nausea and vomiting) Qty: 20 RF: 0 Discharge Orders: Discharge Order (Routine); Ordered 08/26/20 Ordered By: Mio Carvalho/Other Patient Handouts: Preventing Deep Vein Thrombosis Admission Data Admit Date/Time: 08/25/20 15:25 Attending Provider: Mio Parra Admit Provider: Jazmin Blount Primary Care Provider: Kandis Slater Other Providers: Jazmin Blount ; Taiwo Stewart
== END 2020-08-26 15:21 | disposition home or self-care (01) ==
LOC: 3E 06:13 → ED 06:13 → 3E 11:02 → SUATTDRO 08-25 15:25